=== PATIENT | female | born 1940 | race Caucasian/White ===

== ENCOUNTER 2018-11-07 06:47 | Observation (INO) ==
[2018-11-07 07:19] LABS: Basophils % 0.4 % (0.1-2.0); Eosinophils # 0.3 K/mm3 (0.0-0.4); Eosinophils % 3.2 % (0.1-12.0); Hematocrit 41.3 % (37.0-47.0); Hemoglobin 13.2 g/dL (12.2-16.2); Lymphocytes # 1.2 K/mm3 (0.7-4.5); Lymphocytes % 11.1 % (10-50); Mean Corpuscular HGB Conc 31.9 g/dL (31.8-35.4); Mean Corpuscular Hemoglobin 29.2 pg (27.0-31.2); Mean Corpuscular Volume 91.4 fl (81-99); Mean Platelet Volume 7.8 fl (7.4-10.4); Monocytes # 0.5 K/mm3 (0.1-1.0); Neutrophils # 8.5 K/mm3 (1.8-7.8); Neutrophils % 80.3 % (37.0-80.0); Platelet Count 211 K/mm3 (142-424); Red Blood Count 4.52 M/mm3 (4.20-5.40); White Blood Count 10.6 K/mm3 (4.8-10.8)
[2018-11-07 07:28] LABS: Anion Gap 10.2 mEq/L (5-15); Blood Urea Nitrogen 15 mg/dL (7-18); C-Reactive Protein 3.3 mg/L (0.0-0.9); Calcium 9.3 mg/dL (8.5-10.1); Carbon Dioxide 30 mmol/L (21.0-32.0); Chloride 103 mmol/L (98-107); Glucose 229 mg/dL (74-106); Potassium 4.2 mmoL/L (3.5-5.1); Sodium 139 mmol/L (136-145)
--- NOTE | 2018-11-07 07:32 | Emergency Department Note ---
ED Disposition Clinical Impression: Elevated erythrocyte sedimentation rate, Diabetes 1.5, managed as type 2 Obesity Qualifiers: Obesity type: due to excess calories Obesity classification: adult class 3 (BMI >= 40) Serious obesity comorbidity presence: with serious comorbidity Body mass index: BMI 50.0-59.9 Qualified Code(s): E66.01 - Morbid (severe) obesity due to excess calories; Z68.43 - Body mass index (BMI) 50-59.9, adult A-fib Qualifiers: Atrial fibrillation type: chronic Qualified Code(s): I48.2 - Chronic atrial fibrillation CHF (congestive heart failure) Qualifiers: Heart failure type: unspecified Heart failure chronicity: acute on chronic Qualified Code(s): I50.9 - Heart failure, unspecified Disposition: Admitted as Observation Condition on Discharge: Fair Referrals: Provider,Referral, MD [Primary Care Provider] - - Critical Care Critical Care Time: No Attestation: On 11/07/18, the high probability of a clinically significant, sudden or life threatening deterioration of the following system(s) required my full and direct attention, intervention and personal management. The time I documented below is in addition to time spent performing reported procedures but includes the following listed in this critical care notation. Medical Decision Making - Medical Records Medical records reviewed: Yes: I reviewed the patient's medical records. - Neeraj Inquiry Pt receiving controlled substance: No Vital Signs: 11/07/18 06:58 11/07/18 07:17 11/07/18 07:30 Temperature 98.6 F Temperature Source Oral Pulse Rate [Right] 89 88 84 Respiratory Rate 16 Blood Pressure [Right Arm] 161/126 H 135/68 137/79 Blood Pressure Mean [Right Arm] 137 90 98 Blood Pressure Source [Right Arm] Automatic Cuff Automatic Cuff Automatic Cuff Blood Pressure Position [Right Arm] Supine Sitting Sitting 02 Sat by Pulse Oximetry 89 L 93 L 94 L Oxygen Delivery Method Room Air Room Air Room Air Oxygen Flow Rate (LPM) 11/07/18 07:56 11/07/18 08:30 11/07/18 08:54 Temperature 98.6 F Temperature Source Oral Pulse Rate [Right] 87 84 79 Respiratory Rate 16 16 20 Blood Pressure [Right Arm] 135/79 141/85 H 149/85 H Blood Pressure Mean [Right Arm] 97 103 106 Blood Pressure Source [Right Arm] Automatic Cuff Automatic Cuff Automatic Cuff Blood Pressure Position [Right Arm] Sitting Sitting Sitting 02 Sat by Pulse Oximetry 93 L 93 L 95 Oxygen Delivery Method Room Air Nasal Cannula Nasal Cannula Oxygen Flow Rate (LPM) 2 11/07/18 09:30 Temperature Temperature Source Pulse Rate [Right] 78 Respiratory Rate 20 Blood Pressure [Right Arm] 141/82 H Blood Pressure Mean [Right Arm] 101 Blood Pressure Source [Right Arm] Automatic Cuff Blood Pressure Position [Right Arm] Sitting 02 Sat by Pulse Oximetry 95 Oxygen Delivery Method Nasal Cannula Oxygen Flow Rate (LPM) 2 - Lab Data Lab results reviewed: Yes: I reviewed the patient's lab results. Lab Results 11/07/18 07:00: WBC 10.6, RBC 4.52, Hgb 13.2, Hct 41.3, MCV 91.4, MCH 29.2, MCHC 31.9, RDW 15.0, Plt Count 211, MPV 7.8, Neut % (Auto) 80.3 H, Lymph % (Auto) 11.1, [place] % (Auto) 5.0, Eos % (Auto) 3.2, Baso % (Auto) 0.4, Neut # (Auto) 8.5 H, Lymph # (Auto) 1.2, [place] # (Auto) 0.5, Eos # (Auto) 0.3, Baso # (Auto) 0.0, ESR 48 H 11/07/18 07:00: Sodium 139, Potassium 4.2, Chloride 103, Carbon Dioxide 30, Anion Gap 10.2, BUN 15, Creatinine 0.96, Estimated Creat Clear 41, Estimated GFR 57 L, Est GFR ( Amer) 68, Glucose 229 H, Calcium 9.3, Troponin I < 0.02, C-Reactive Protein 3.3 H 11/07/18 07:00: B-Natriuretic Peptide 108 H 11/07/18 07:00: Total Bilirubin 0.3, Direct Bilirubin 0.1, Indirect Bilirubin 0.2, AST 17, ALT 25, Alkaline Phosphatase 94, Total Protein 7.4, Albumin 2.9 L Result diagrams: 11/07/18 07:00 11/07/18 07:00 - Radiology Data #1 Image(s): Chest Image Reviewed: Yes I reviewed the patient's radiology image Preliminary Findings: Abnormal (cm) - ECG Data Tracing #1 Arrhythmias present: afib Ischemic changes: non-specific ST-T wave changes ECG compared to prior tracings: there are no significant changes Chest Pain HPI - General Chief Complaint: Chest Pain Stated Complaint: Chest Pain Time Seen by Provider: 11/07/18 07:00 Mode of Arrival: EMS Source of Information: Patient, EMS, Medical Record Limitations: Physical Limitations Description of Symptoms (Recalled from ER Triage Doc. by RN): Pt states she started having chest pain last night with SOA 324 ASA given by EMS [employer] - History of Present Illness HPI narrative: pt with chest pain last pm and sob and again this am - pt lives at [facility] - has hx of dvt on blood thinner MD complaint: chest pain indicative of cardiac Onset (ago): day(s) Duration: now resolved Activity at onset: during rest Pain location: substernal Severity: similar to previous episodes Risk Factors for CAD: Hypertension, Family Hx of CAD, Diabetes Treatments prior to or on arrival for Cardiac Chest Pain: aspirin - CHANDA Score for Non-Stemi Age of Patient: 70-79 years old Heart Rate: 70-89 bpm Systolic Blood Pressure: 160-199 mmHg Serum Creatinine: 0.80-1.19 mg/dl CHF [place] Class: I-No CHF Other Risk Factors: None Non-Stemi Risk Score: 101 - Related Data On Oral Contraceptives: No Home Medications Medication Instructions Recorded Confirmed acetaminophen 500 mg capsule 500 mg PO Q6H PRN 03/02/18 11/07/18 atorvastatin 20 mg tablet 20 mg PO DAILY 03/02/18 11/07/18 famotidine 20 mg tablet 20 mg PO BID 03/02/18 11/07/18 gabapentin 600 mg tablet 600 mg PO TID 03/02/18 11/07/18 hydrocodone 5 mg-acetaminophen 325 1 tab PO Q6H 03/02/18 11/07/18 mg tablet lactulose 10 gram/15 mL oral 10 g PO DAILY 03/02/18 11/07/18 solution loratadine 10 mg tablet 10 mg PO DAILY 03/02/18 11/07/18 losartan 25 mg tablet 25 mg PO DAILY 03/02/18 11/07/18 metoprolol succinate ER 50 mg 50 mg PO DAILY 03/02/18 11/07/18 tablet,extended release 24 hr mirabegron ER 50 mg 50 mg PO DAILY 03/02/18 11/07/18 tablet,extended release 24 hr polyethylene glycol 3350 17 17 gram PO DAILY 03/02/18 11/07/18 gram/dose oral powder rivaroxaban 20 mg tablet 20 mg PO DAILY 03/02/18 11/07/18 sertraline 100 mg tablet 200 mg PO DAILY 03/02/18 11/07/18 trazodone 50 mg tablet 50 mg PO DAILY 03/02/18 11/07/18 Aspirin [Aspir 81] 81 mg PO DAILY 11/07/18 11/07/18 Calcium Carbonate 500 mg PO BID 11/07/18 11/07/18 Metformin HCl 500 mg PO BID 11/07/18 11/07/18 Allergies Allergy/AdvReac Type Severity Reaction Status Date / Time influenza virus vaccine, AdvReac Unknown STATES Verified 11/07/18 07:06 specific GAVE HER [INFLUENZA VIRUS THE FLU VACC,SPECIFIC] [facility] History - Hepatitis A Screen Drug use history?: No High risk sexual behaviors?: No History of sexually transmitted infection?: No Currently employed?: No Childcare worker?: No Do you have indoor plumbing?: Yes Do you have electricity?: Yes Attestation statement:: This patient has been screened for Hepatitis A risk factors. I have reviewed the patient's past medical history: Yes Medical History: Reports:: Anxiety, Atrial Fibrillation, Deep Vein Thrombosis, Depression, Diabetes Mellitus Type 2, Gastroesophageal Reflux Disease(GERD), Hyperlipidemia, Hypertension, Osteoporosis, Peripheral Artery Disease, Pulmonary Embolism, Urinary Tract Infection Other Medical History: Reports: Arthritis, Osteoporosis Comment: Cerebral Infarction, Insomnia, Polyneuropathy, Prolapse - Social History Smoking Status: Unknown if ever smoked Alcohol Intake: never Occupational Status: retired Housing: [employer] - Psychiatric History Expresses thoughts of harming self/others: None Suicide Plan Description: No Plan Pschychiatric History:: Reports:: Anxiety, Depression Family Hx:: Unable to obtain ROS Obtained: Yes All systems reviewed & no additional complaints - Constitutional Constitutional: Denies fever(s) - Eyes Eyes: Denies change in vision - ENT Ears, Nose, Mouth, and Throat: Denies sore throat - Cardiovascular Cardiovascular: Reports chest pain, Reports chest pain at rest, Reports dyspnea - Respiratory Respiratory: No cough, No non-productive cough, Yes dyspnea - Gastrointestinal Gastrointestingal: Denies: vomiting - Genitourinary Female Genitourinary: Denies abnormal vaginal bleeding - Musculoskeletal Musculoskeletal: Denies joint pain - Integumentary/Breasts Skin/Breast: Denies rash - Neurologic Neurologic: Denies seizure-like activity Physical Exam - General General appearance: alert, in no apparent distress, obese - Head Head exam: normocephalic - Eye Eye exam: Present: PERRL, EOMI - ENT ENT exam: Present: mucous membranes dry - Neck Neck exam: Absent: trachea midline - Respiratory Respiratory exam: Present: other (dec bs bilat ). Absent: respiratory distress - Cardiovascular Cardiovascular exam: Present: irregular rhythm, systolic murmur, +S4 - Abdominal Exam Abdominal exam: Present: soft - Extremities Exam Extremities exam: Present: pedal edema. Absent: calf tenderness - Neurological Exam Neurological exam: Present: alert, oriented X3, CN II-XII intact, other (s/p cva ) - Psychiatric Psychiatric exam: Present: normal affect - Skin Skin exam: Absent: rash
[2018-11-07 08:00] LABS: Erythrocyte Sedimentation Rate 48 mm/hr (0-30)
[2018-11-07 08:16] LABS: Albumin Level 2.9 gm/dL (3.4-5.0); Bilirubin,Direct 0.1 mg/dL (0.0-0.2); Bilirubin,Indirect 0.2 mg/dL (0.0-0.9); Bilirubin,Total 0.3 mg/dL (0.2-1.0); Total Protein,Serum 7.4 gm/dL (6.4-8.2)
--- NOTE | 2018-11-07 12:04 | Pharmacy Consult Notes ---
[facility] Pharmacy VTE Monitoring - Patient Demographics Admission date: 11/07/18 Report Date: 11/07/18 Time: 12:04 Allergies/Adverse Reactions: Patient Allergies influenza virus vaccine, specific [INFLUENZA VIRUS VACC,SPECIFIC] Adverse Reaction (Unknown, Verified 11/07/18 07:06) STATES GAVE HER THE FLU Height: 1.63 m Weight: 107.246 kg Patient Problems: Current Active Problems (Updated 11/07/18 @ 09:42 by Emmanuel Quijano MD) Obesity (Acute) A-fib (Acute) Elevated erythrocyte sedimentation rate (Acute) CHF (congestive heart failure) (Acute) Diabetes 1.5, managed as type 2 (Acute) - VTE Risk Labs: VTE Related Lab Results Hgb 13.2 g/dL (12.2-16.2) 11/07/18 07:00 Hct 41.3 % (37.0-47.0) 11/07/18 07:00 Plt Count 211 K/mm3 (142-424) 11/07/18 07:00 BUN 15 mg/dL (7-18) 11/07/18 07:00 Creatinine 0.96 mg/dL (0.55-1.02) 11/07/18 07:00 Estimated Creat Clear 41 mL/min (50-200) 11/07/18 07:00 - Prophylaxis VTE Prophylaxis Ordered?: Yes Types of VTE Prophylaxis: TEDS Knee High, Pharmacological Location of Applied Device: Bilateral Lower Extremeties Pharmacologic Type: Other (XARELTO) - VTE Diagnosis Confirmed Treatment or plan recommended: Continue Current Treatment
[2018-11-07 16:25] LABS: Microscopic, Urine URINE MICROSCOPIC (MICROSCOPIC)
[2018-11-07 16:28] LABS: Appearance,Urine CLOUDY (Clear); Bilirubin,Urine Negative (Negative); Blood, Urine Negative (Negative); Color,Urine YELLOW (Yellow); Glucose,Urine (UA) 1+ (Negative); Ketones,Urine Negative (Negative); Leukocyte Esterase,Urine 1+ (Negative); PH,Urine 6.5 (5.0-8.5); Protein,Urine Negative (Negative); Urobilinogen,Urine 0.2 EU/dl (0.2)
[2018-11-07 16:38] LABS: Bacteria,Urine 4+ /lpf
[2018-11-08 07:29] LABS: Basophils % 0.5 % (0.1-2.0); Eosinophils # 0.4 K/mm3 (0.0-0.4); Eosinophils % 4.9 % (0.1-12.0); Hematocrit 39.7 % (37.0-47.0); Hemoglobin 12.6 g/dL (12.2-16.2); Lymphocytes # 1.4 K/mm3 (0.7-4.5); Lymphocytes % 17.4 % (10-50); Mean Corpuscular HGB Conc 31.6 g/dL (31.8-35.4); Mean Corpuscular Hemoglobin 29.1 pg (27.0-31.2); Mean Corpuscular Volume 92.2 fl (81-99); Mean Platelet Volume 7.9 fl (7.4-10.4); Monocytes # 0.4 K/mm3 (0.1-1.0); Monocytes % 5.3 % (1.7-9.3); Neutrophils # 5.6 K/mm3 (1.8-7.8); Neutrophils % 71.9 % (37.0-80.0); Platelet Count 176 K/mm3 (142-424); Red Blood Count 4.31 M/mm3 (4.20-5.40); Red Cell Distribution Width 14.9 % (11.5-17.5); White Blood Count 7.8 K/mm3 (4.8-10.8)
[2018-11-08 07:43] LABS: Chol/HDL Ratio 4.4 (1-3.5)
--- NOTE | 2018-11-08 08:11 | Consult Report ---
History of Present Illness Consult date: 11/08/18 Requesting physician: Emmanuel Quijano Consult reason: shortness of breath Chief complaint: Shortness of breath Additional Medical History:: 1. Diabetes mellitus type 2, treated for about 3 years 2. History of CVA with left-sided weakness approximately 5 years ago 3. Chronic atrial fibrillation, on Xarelto therapy 4. Hypertension 5. Hyperlipidemia 6. group home resident History of present illness: 78-year-old white female sent from the skilled nursing for complaints of shortness of breath. Patient is somewhat of a poor historian but states that she does not believe she has shortness of breath with exertion. Symptoms seem to only occur when she lays down to go to sleep. Shortness of breath does not wake her up. She relates a previous stress test a couple years ago without need for further evaluation or intervention. Patient has chronic atrial fibrillation for which she is on rivaroxaban therapy. History of stroke with left-sided weakness for which she has been on skilled nursing since then. Patient is a diabetic with history of hypertension and hyperlipidemia. EKG shows atrial fibrillation with controlled rate with PVCs. Troponins during this hospitalization have returned normal. [facility] History Medical History: Reports:: Anxiety, Atrial Fibrillation, Deep Vein Thrombosis, Depression, Diabetes Mellitus Type 2, Gastroesophageal Reflux Disease(GERD), Hyperlipidemia, Hypertension, Osteoporosis, Peripheral Artery Disease, Pulmonary Embolism, Urinary Tract Infection Denies:: Cancer, Diabetes Mellitus Type 1, MRSA *Have you ever received a pneumonia vaccine?: Yes *Have you received a flu vaccine this season?: No Other Medical History: Reports: Arthritis, Osteoporosis Other Surgeries: Yes: Hysterectomy-Total Amputation: No Fractures: No - *Social History Educational Level: Completed High School Smoking Status: Former smoker Alcohol Intake: never *Occupational Status:: retired Housing: skilled nursing *Travel in the last 8 weeks: None - Psychiatric History Expresses thoughts of harming self/others: None Suicide Plan Description: No Plan Pschychiatric History:: Reports:: Anxiety, Depression Family Hx:: Unable to obtain Meds Home Medications Medication Instructions Recorded Confirmed Type atorvastatin 20 mg tablet 20 mg PO HS 03/02/18 11/07/18 History gabapentin 600 mg tablet 600 mg PO TID 03/02/18 11/07/18 History hydrocodone 5 mg-acetaminophen 325 1 tab PO QID 03/02/18 11/07/18 History mg tablet lactulose 10 gram/15 mL oral 20 g PO DAILYP PRN 03/02/18 11/07/18 History solution loratadine 10 mg tablet 10 mg PO DAILY 03/02/18 11/07/18 History losartan 25 mg tablet 25 mg PO DAILY 03/02/18 11/07/18 History mirabegron ER 50 mg 50 mg PO DAILY 03/02/18 11/07/18 History tablet,extended release 24 hr polyethylene glycol 3350 17 17 gram PO DAILYP PRN 03/02/18 11/07/18 History gram/dose oral powder rivaroxaban 20 mg tablet 20 mg PO DAILY 03/02/18 11/07/18 History sertraline 100 mg tablet 200 mg PO DAILY 03/02/18 11/07/18 History trazodone 50 mg tablet 50 mg PO DAILY 03/02/18 11/07/18 History Acetaminophen [Acetaminophen Extra 500 mg PO Q4HP PRN 11/07/18 11/07/18 History Strength] Aspirin [Aspir 81] 81 mg PO DAILY 11/07/18 11/07/18 History Calcium Carbonate 500 mg PO BID 11/07/18 11/07/18 History glipiZIDE [Glipizide] 10 mg PO DAILY 11/07/18 11/07/18 History Allergies Allergy/AdvReac Type Severity Reaction Status Date / Time influenza virus vaccine, AdvReac Unknown STATES Verified 11/07/18 07:06 specific GAVE HER [INFLUENZA VIRUS THE FLU VACC,SPECIFIC] Review of Systems - *Cardiovascular Denies chest pain - *Respiratory Reports shortness of breath, Denies cough, Denies wheezing - *Gastrointestinal Denies abdominal pain, Denies change in bowel habits, Denies loose stools - *Genitourinary Denies blood in urine - *Musculoskeletal Denies joint pain, Denies back pain - *Neurologic Denies seizure-like activity Exam Vital signs and Labs for Last 24 Hours: Temp Pulse Resp BP Pulse Ox 97.5 F L 87 18 167/89 H 97 11/08/18 07:41 11/08/18 07:41 11/08/18 07:41 11/08/18 07:41 11/08/18 07:41 Laboratory Results - last 24 hr 11/07/18 07:00: Total Bilirubin 0.3, Direct Bilirubin 0.1, Indirect Bilirubin 0.2, AST 17, ALT 25, Alkaline Phosphatase 94, Total Protein 7.4, Albumin 2.9 L 11/07/18 12:24: POC Glucose 164 H 11/07/18 12:55: Troponin I < 0.02 11/07/18 15:45: Troponin I < 0.02 11/07/18 16:00: Urine Color Yellow, Urine Appearance Cloudy, Urine pH 6.5, Ur Specific [place] 1.010, Urine Protein Negative, Urine Glucose (UA) 1+, Urine Ketones Negative, Urine Blood Negative, Urine Nitrate Positive, Urine Bilirubin Negative, Urine Urobilinogen 0.2, Ur Leukocyte Esterase 1+ A, Urine WBC 5-10, Ur Squamous Epith Cells 10-20, Urine Bacteria 4+ 11/07/18 16:33: POC Glucose 200 H 11/07/18 19:57: POC Glucose 211 H 11/08/18 06:06: POC Glucose 176 H 11/08/18 07:12: WBC 7.8 D, RBC 4.31, Hgb 12.6, Hct 39.7, MCV 92.2, MCH 29.1, MCHC 31.6 L, RDW 14.9, Plt Count 176, MPV 7.9, Neut % (Auto) 71.9, Lymph % (Auto) 17.4, [place] % (Auto) 5.3, Eos % (Auto) 4.9, Baso % (Auto) 0.5, Neut # (Auto) 5.6, Lymph # (Auto) 1.4, [place] # (Auto) 0.4, Eos # (Auto) 0.4, Baso # (Auto) 0.0 11/08/18 07:12: Sodium 142, Potassium 4.0, Chloride 105, Carbon Dioxide 31, Anion Gap 10.0, BUN 11 D, Creatinine 0.76 D, Estimated Creat Clear 80, Estimated GFR 74, Est GFR ( Amer) 90 D, Glucose 193 H, Calcium 9.0, Magnesium 1.9, Triglycerides 155, Cholesterol 158, LDL Cholesterol 91, VLDL Cholesterol 31, HDL Cholesterol 36, Cholesterol/HDL Ratio 4.4 H I & O for Last 24 hours: Intake & Output 11/05/18 11/06/18 11/07/18 11/08/18 11:59 11:59 11:59 11:59 Intake Total 1259 / 1259 Output Total 200 / 200 Balance 1059 / 1059 Weight 236 lb 7 oz 233 lb 1 oz Microbiology Reports for the Last 24 Hours: Microbiology 11/07/18 16:00 Urine,Clean Catch Urine Culture - Preliminary Gram Negative Rods - *Routine HEENT Exam Head: Present: normocephalic Eye: Present: EOMI, PERRL ENT: Present: mucous membranes moist - *Routine Neck Exam Present: supple. Absent: JVD, carotid bruit - *Routine Respiratory Exam Present: CTA bilaterally. Absent: accessory muscle use, rales, rhonchi, wheezes - *Routine Cardiovascular Exam Present: irregularly irregular. Absent: murmur, gallop, rubs - *Routine Abdominal Exam Present: soft. Absent: tenderness, distended, guarding - *Routine Extremities Exam Absent: edema, calf tenderness - *Routine Neurological Exam Present: alert, oriented X3, moving all extremities Assessment and Plan (1) Shortness of breath Current visit: Yes Status: Acute Category: Medical Code(s): R06.02 - Shortness of breath (2) Hypertension Current visit: Yes Status: Acute Category: Medical Code(s): I10 - Essential (primary) hypertension (3) Hyperlipidemia associated with type 2 diabetes mellitus Current visit: Yes Status: Acute Category: Medical Code(s): E11.69 - Type 2 diabetes mellitus with other specified complication; E78.5 - Hyperlipidemia, unspecified (4) A-fib Current visit: Yes Status: Acute Qualifiers: Atrial fibrillation type: chronic Qualified Code(s): I48.2 - Chronic atrial fibrillation Category: Medical Code(s): I48.91 - Unspecified atrial fibrillation (5) Diabetes 1.5, managed as type 2 Current visit: Yes Status: Acute Category: Medical Code(s): E13.9 - Other specified diabetes mellitus without complications (6) Obesity Current visit: Yes Status: Acute Qualifiers: Obesity type: due to excess calories Obesity classification: adult class 3 (BMI >= 40) Serious obesity comorbidity presence: with serious comorbidity Body mass index: BMI 50.0-59.9 Qualified Code(s): E66.01 - Morbid (severe) obesity due to excess calories; Z68.43 - Body mass index (BMI) 50-59.9, adult Category: Medical Code(s): E66.9 - Obesity, unspecified - Assessment and plan all Dx Assessment and Plan for all problems:: 1. With patient's history of diabetes mellitus, hypertension, hyperlipidemia and previous stroke, would recommend proceeding with Lexiscan Myoview today. 2. We will plan on holding patient's Xarelto today for possibility of cardiac catheterization tomorrow, if needed, pending results of stress test.
--- NOTE | 2018-11-08 12:57 | History & Physical Report ---
*Admission Date: 11/07/18 *Chief complaint: chest pain *History of present illness: this wf presented with chest pain and was seen in the ed -states she started having chest pain last night with SOA 324 ASA given by EMS [facility]ER pt has hx of a fib and prev dvt pt with chest pain last pm and sob and again this am - pt lives at [facility] - has hx of dvt on blood thinner MD complaint: chest pain indicative of cardiac pt was admitted and [place] be seen by [facility] - [facility] History I have reviewed the patient's past medical history: Yes Medical History: Reports:: Anxiety, Atrial Fibrillation, Deep Vein Thrombosis, Depression, Diabetes Mellitus Type 2, Gastroesophageal Reflux Disease(GERD), Hyperlipidemia, Hypertension, Osteoporosis, Peripheral Artery Disease, Pulmonary Embolism, Urinary Tract Infection Denies:: Cancer, Diabetes Mellitus Type 1, MRSA *Have you ever received a pneumonia vaccine?: Yes *Have you received a flu vaccine this season?: No Other Medical History: Reports: Arthritis, Osteoporosis Other Surgeries: Yes: Hysterectomy-Total Amputation: No Fractures: No - *Social History Educational Level: Completed High School Smoking Status: Former smoker Alcohol Intake: never *Occupational Status:: retired Housing: shelter *Travel in the last 8 weeks: None - Psychiatric History Expresses thoughts of harming self/others: None Suicide Plan Description: No Plan Pschychiatric History:: Reports:: Anxiety, Depression Family Hx:: Unable to obtain Review of Systems - Review of Systems Review of systems:: pertinent systems reviewed and negative unless documented below - Constitutional Denies fever(s) - Eyes Denies change in vision - ENT Denies sore throat - *Cardiovascular Reports chest pain, Reports chest pain at rest - *Respiratory Reports shortness of breath, Denies cough - *Gastrointestinal Denies abdominal pain - *Genitourinary Denies blood in urine - *Musculoskeletal Denies joint pain - Integumentary/Breasts Denies rash - *Neurologic Denies headache(s), Denies seizure-like activity - Psychiatric Denies anxiety Meds Home Medications Medication Instructions Recorded Confirmed Type atorvastatin 20 mg tablet 20 mg PO HS 03/02/18 11/07/18 History gabapentin 600 mg tablet 600 mg PO TID 03/02/18 11/07/18 History hydrocodone 5 mg-acetaminophen 325 1 tab PO QID 03/02/18 11/07/18 History mg tablet lactulose 10 gram/15 mL oral 20 g PO DAILYP PRN 03/02/18 11/07/18 History solution loratadine 10 mg tablet 10 mg PO DAILY 03/02/18 11/07/18 History losartan 25 mg tablet 25 mg PO DAILY 03/02/18 11/07/18 History mirabegron ER 50 mg 50 mg PO DAILY 03/02/18 11/07/18 History tablet,extended release 24 hr polyethylene glycol 3350 17 17 gram PO DAILYP PRN 03/02/18 11/07/18 History gram/dose oral powder rivaroxaban 20 mg tablet 20 mg PO DAILY 03/02/18 11/07/18 History sertraline 100 mg tablet 200 mg PO DAILY 03/02/18 11/07/18 History trazodone 50 mg tablet 50 mg PO DAILY 03/02/18 11/07/18 History Acetaminophen [Acetaminophen Extra 500 mg PO Q4HP PRN 11/07/18 11/07/18 History Strength] Aspirin [Aspir 81] 81 mg PO DAILY 11/07/18 11/07/18 History Calcium Carbonate 500 mg PO BID 11/07/18 11/07/18 History glipiZIDE [Glipizide] 10 mg PO DAILY 11/07/18 11/07/18 History Allergies Allergy/AdvReac Type Severity Reaction Status Date / Time influenza virus vaccine, AdvReac Unknown STATES Verified 11/07/18 07:06 specific GAVE HER [INFLUENZA VIRUS THE FLU VACC,SPECIFIC] Exam Vital signs and Labs for Last 24 Hours: Temp Pulse Resp BP Pulse Ox 97.7 F 115 H 20 146/78 H 95 11/08/18 11:16 11/08/18 11:16 11/08/18 11:16 11/08/18 11:16 11/08/18 11:16 Laboratory Results - last 24 hr 11/07/18 12:24: POC Glucose 164 H 11/07/18 12:55: Troponin I < 0.02 11/07/18 15:45: Troponin I < 0.02 11/07/18 16:00: Urine Color Yellow, Urine Appearance Cloudy, Urine pH 6.5, Ur Specific [place] 1.010, Urine Protein Negative, Urine Glucose (UA) 1+, Urine Ketones Negative, Urine Blood Negative, Urine Nitrate Positive, Urine Bilirubin Negative, Urine Urobilinogen 0.2, Ur Leukocyte Esterase 1+ A, Urine WBC 5-10, Ur Squamous Epith Cells 10-20, Urine Bacteria 4+ 11/07/18 16:33: POC Glucose 200 H 11/07/18 19:57: POC Glucose 211 H 11/08/18 06:06: POC Glucose 176 H 11/08/18 07:12: WBC 7.8 D, RBC 4.31, Hgb 12.6, Hct 39.7, MCV 92.2, MCH 29.1, MCHC 31.6 L, RDW 14.9, Plt Count 176, MPV 7.9, Neut % (Auto) 71.9, Lymph % (Auto) 17.4, [place] % (Auto) 5.3, Eos % (Auto) 4.9, Baso % (Auto) 0.5, Neut # (Auto) 5.6, Lymph # (Auto) 1.4, [place] # (Auto) 0.4, Eos # (Auto) 0.4, Baso # (Auto) 0.0 11/08/18 07:12: Sodium 142, Potassium 4.0, Chloride 105, Carbon Dioxide 31, Anion Gap 10.0, BUN 11 D, Creatinine 0.76 D, Estimated Creat Clear 80, Estimated GFR 74, Est GFR ( Amer) 90 D, Glucose 193 H, Calcium 9.0, Magnesium 1.9, Triglycerides 155, Cholesterol 158, LDL Cholesterol 91, VLDL Cholesterol 31, HDL Cholesterol 36, Cholesterol/HDL Ratio 4.4 H 11/08/18 11:27: POC Glucose 223 H I & O for Last 24 hours: Intake & Output 11/06/18 11/07/18 11/08/18 11/09/18 11:59 11:59 11:59 11:59 Intake Total 1259 / 1259 360 / 360 Output Total 200 / 200 Balance 1059 / 1059 360 / 360 Weight 236 lb 7 oz 233 lb 1 oz Microbiology Reports for the Last 24 Hours: Microbiology 11/07/18 16:00 Urine,Clean Catch Urine Culture - Preliminary Gram Negative Rods - Constitutional no acute distress, obese - *Routine HEENT Exam Head: Present: normocephalic Eye: Present: EOMI, PERRL. Absent: conjunctival icterus ENT: Present: mucous membranes dry - *Routine Neck Exam Absent: JVD - *Routine Respiratory Exam Present: decreased breath sounds - *Routine Cardiovascular Exam Present: RRR, murmur, S4 - *Routine Abdominal Exam Present: soft - *Routine Extremities Exam Present: edema. Absent: calf tenderness - *Routine Skin Exam Present: intact - *Routine Neurological Exam Present: alert, oriented X3, CN II-XII intact - Routine Psychiatric Exam Present: normal affect Assessment and Plan (1) Shortness of breath Current visit: Yes Status: Acute Category: Medical Code(s): R06.02 - Shortness of breath (2) Hypertension Current visit: Yes Status: Acute Category: Medical Code(s): I10 - Essential (primary) hypertension (3) Hyperlipidemia associated with type 2 diabetes mellitus Current visit: Yes Status: Acute Category: Medical Code(s): E11.69 - Type 2 diabetes mellitus with other specified complication; E78.5 - Hyperlipidemia, unspecified (4) A-fib Current visit: Yes Status: Acute Qualifiers: Atrial fibrillation type: chronic Qualified Code(s): I48.2 - Chronic atrial fibrillation Category: Medical Code(s): I48.91 - Unspecified atrial fibrillation (5) Diabetes 1.5, managed as type 2 Current visit: Yes Status: Acute Category: Medical Code(s): E13.9 - Other specified diabetes mellitus without complications (6) Obesity Current visit: Yes Status: Acute Qualifiers: Obesity type: due to excess calories Obesity classification: adult class 3 (BMI >= 40) Serious obesity comorbidity presence: with serious comorbidity Body mass index: BMI 50.0-59.9 Qualified Code(s): E66.01 - Morbid (severe) obesity due to excess calories; Z68.43 - Body mass index (BMI) 50-59.9, adult Category: Medical Code(s): E66.9 - Obesity, unspecified (7) HTN (hypertension) Current visit: Yes Status: Acute Qualifiers: Hypertension type: essential hypertension Qualified Code(s): I10 - Essential (primary) hypertension Category: Medical Code(s): I10 - Essential (primary) hypertension (8) Elevated erythrocyte sedimentation rate Current visit: Yes Status: Acute Category: Medical Code(s): R70.0 - Elevated erythrocyte sedimentation rate (9) CAD (coronary artery disease) Current visit: Yes Status: Acute Qualifiers: Coronary Disease-Associated Artery/Lesion type: unspecified vessel or lesion type [place] vs. transplanted heart: [place] heart Associated angina: with unstable angina Qualified Code(s): I25.110 - Atherosclerotic heart disease of [place] coronary artery with unstable angina pectoris Category: Medical Code(s): I25.10 - Atherosclerotic heart disease of [place] coronary artery without angina pectoris (10) Abnormal stress test Current visit: Yes Status: Acute Category: Medical Code(s): R94.39 - Abnormal result of other cardiovascular function study (11) Decreased cardiac ejection fraction Current visit: Yes Status: Acute Category: Medical Code(s): R93.1 - Abnormal findings on diagnostic imaging of heart and coronary circulation (12) Ventricular hypokinesis Current visit: Yes Status: Acute Category: Medical Code(s): I51.89 - Other ill-defined heart diseases (13) UTI (urinary tract infection), bacterial Current visit: Yes Status: Acute Category: Medical Code(s): N39.0 - Urinary tract infection, site not specified; A49.9 - Bacterial infection, unspecified
--- NOTE | 2018-11-08 21:43 | Cardiology Report ---
PROCEDURE: 2-D M-mode and color Doppler study INDICATIONS FOR THE TEST: Chest pain X COPD Heart Murmur Tobacco Smoking Palpitations Fatigue Syncope Edema HypertensionXDiabetes MellitusX Rheumatic Fever SOBXDOE ObesityXHyperlipidemiaX Family History HD Additional History AF PATIENT INFORMATION HEIGHT: 66 WEIGHT:236 GENDER: Female B/P:137/79 2-D/M-MODE INTERPRETATION: 2-D MEASUREMENTS OBSERVED VALUES IN CMS Right Ventricular Dimension (RVDd) 1.7 Interventricular Septum (Thickness)(IVsd) 1.1 Left Ventricular Internal Dimensions(LVIDd) 6.6 Left Ventricular Posterior Wall (Thickness)(LVPWd) 1.2 Aortic Root 3.4 Aortic Cusp Separation 1.5 Left Atrial Dimensions (LAD) 4.3 2D 1. Left atrium is moderately enlarged, left ventricle is mildly dilated, there is mild concentric left ventricular hypertrophy, there is moderately reduced left ventricular systolic function, visually estimated ejection fraction there is mild hypokinesis involving the inferior, inferior basal, posterior basal and basal septal wall. 2. The right atrium and right ventricle are normal size and contractility. 3. The aortic valve is thickened and calcified leaflet continue to display mobility. 4. The mitral and tricuspid valve leaflets are minimally thickened. 5. The pulmonic valve is poorly visualized. 6. No significant pericardial effusion noted. DOPPLER INTERROGATION: Doppler interrogation of the aortic, mitral and tricuspid valvular presence of mild mitral and tricuspid regurgitation, tricuspid regurgitation jet velocity is inadequate for calculation of the right ventricular systolic pressure, diastolic parameters are inconclusive. CONCLUSION: 1. Moderately enlarged left atrium, mildly dilated left ventricle, mild concentric left ventricular hypertrophy, moderately reduced left ventricular systolic function, visually estimated ejection fraction 40%, with multiple segmental wall motion abnormality described above. Diastolic parameters are inconclusive. 2. Thickened and calcified aortic valve without aortic stenosis or significant aortic insufficiency. 3. Mild mitral and tricuspid regurgitation 4. No significant pericardial effusion noted.
[2018-11-09 07:05] LABS: Anion Gap 9.6 mEq/L (5-15); Calcium 8.7 mg/dL (8.5-10.1); Potassium 3.6 mmoL/L (3.5-5.1)
--- NOTE | 2018-11-09 07:45 | Progress Note ---
Subjective Date: 11/09/18 Time: 07:43 Principal diagnosis: Cardiomyopathy Interval history: 78-year-old white female in bed in no acute distress. No complaints overnight. Patient is ready for cardiac catheterization today. Blood pressure readings somewhat labile we will continue to adjust both Coreg and irbesartan as able for cardiomyopathy. Exam Vital signs and Labs for Last 24 Hours: Temp Pulse Resp BP Pulse Ox 98.3 F 87 18 153/92 H 96 11/09/18 07:18 11/09/18 07:18 11/09/18 07:18 11/09/18 07:18 11/09/18 07:18 Laboratory Results - last 24 hr 11/08/18 07:12: Sodium 142, Potassium 4.0, Chloride 105, Carbon Dioxide 31, Anion Gap 10.0, BUN 11 D, Creatinine 0.76 D, Estimated Creat Clear 80, Estimated GFR 74, Est GFR ( Amer) 90 D, Glucose 193 H, Calcium 9.0, Magnesium 1.9, Triglycerides 155, Cholesterol 158, LDL Cholesterol 91, VLDL Cholesterol 31, HDL Cholesterol 36, Cholesterol/HDL Ratio 4.4 H 11/08/18 11:27: POC Glucose 223 H 11/08/18 16:11: POC Glucose 267 H 11/08/18 20:13: POC Glucose 176 H 11/09/18 05:16: POC Glucose 185 H 11/09/18 06:42: Sodium 141, Potassium 3.6, Chloride 104, Carbon Dioxide 31, Anion Gap 9.6, BUN 14 D, Creatinine 0.93 D, Estimated Creat Clear 80, E stimated GFR 59, Est GFR ( Amer) 71 D, Glucose 205 H, Calcium 8.7 I & O for Last 24 hours: Intake & Output 11/06/18 11/07/18 11/08/18 11/09/18 11:59 11:59 11:59 11:59 Intake Total 1259 / 1259 838 / 838 Output Total 200 / 200 250 / 250 Balance 1059 / 1059 588 / 588 Weight 236 lb 7 oz 233 lb 1 oz 232 lb 4 oz Microbiology Reports for the Last 24 Hours: Microbiology 11/07/18 16:00 Urine,Clean Catch Urine Culture - Final Escherichia coli - *Routine HEENT Exam Head: Present: normocephalic Eye: Present: EOMI, PERRL ENT: Present: mucous membranes moist - *Routine Respiratory Exam Present: CTA bilaterally. Absent: accessory muscle use, rales, rhonchi, wheezes - *Routine Cardiovascular Exam Present: irregularly irregular. Absent: murmur, gallop, rubs - *Routine Extremities Exam Absent: edema, calf tenderness - *Routine Neurological Exam Present: alert, oriented X3, moving all extremities Progress Note: A&P (1) Shortness of breath Status: Acute Current Visit: Yes (2) Hypertension Status: Acute Current Visit: Yes (3) Hyperlipidemia associated with type 2 diabetes mellitus Status: Acute Current Visit: Yes (4) A-fib Status: Acute Current Visit: Yes (5) Diabetes 1.5, managed as type 2 Status: Acute Current Visit: Yes (6) Obesity Status: Acute Current Visit: Yes (7) HTN (hypertension) Status: Acute Current Visit: Yes (8) Elevated erythrocyte sedimentation rate Status: Acute Current Visit: Yes (9) CAD (coronary artery disease) Status: Acute Current Visit: Yes (10) Abnormal stress test Status: Acute Current Visit: Yes (11) Decreased cardiac ejection fraction Status: Acute Current Visit: Yes (12) Ventricular hypokinesis Status: Acute Current Visit: Yes (13) UTI (urinary tract infection), bacterial Status: Acute Current Visit: Yes Assessment and Plan for All Diagnoses:: Proceed with cardiac catheterization today with further recommendations thereafter. Will adjust irbesartan to 75 mg daily.
--- NOTE | 2018-11-09 08:50 | Progress Note ---
Internal Medicine - PN: Subj *Date: 11/09/18 *Time: 08:47 Exam Vital signs and Labs for Last 24 Hours: Temp Pulse Resp BP Pulse Ox 98.3 F 87 18 160/80 H 96 11/09/18 07:18 11/09/18 07:18 11/09/18 07:18 11/09/18 07:52 11/09/18 07:18 Laboratory Results - last 24 hr 11/08/18 11:27: POC Glucose 223 H 11/08/18 16:11: POC Glucose 267 H 11/08/18 20:13: POC Glucose 176 H 11/09/18 05:16: POC Glucose 185 H 11/09/18 06:42: Sodium 141, Potassium 3.6, Chloride 104, Carbon Dioxide 31, Anion Gap 9.6, BUN 14 D, Creatinine 0.93 D, Estimated Creat Clear 80, Estimated GFR 59, Est GFR ( Amer) 71 D, Glucose 205 H, Calcium 8.7 I & O for Last 24 hours: Intake & Output 11/06/18 11/07/18 11/08/18 11/09/18 11:59 11:59 11:59 11:59 Intake Total 1259 / 1259 838 / 838 Output Total 200 / 200 250 / 250 Balance 1059 / 1059 588 / 588 Weight 236 lb 7 oz 233 lb 1 oz 232 lb 4 oz Microbiology Reports for the Last 24 Hours: Microbiology 11/07/18 16:00 Urine,Clean Catch Urine Culture - Final Escherichia coli - Constitutional no acute distress - *Routine HEENT Exam Head: Present: normocephalic Eye: Present: EOMI, PERRL ENT: Present: mucous membranes moist - *Routine Neck Exam Present: supple. Absent: lymphadenopathy - *Routine Respiratory Exam Present: CTA bilaterally - *Routine Cardiovascular Exam Present: RRR - *Routine Abdominal Exam Present: soft, normoactive bowel sounds. Absent: tenderness - *Routine Extremities Exam Absent: cyanosis, clubbing, edema - *Routine Skin Exam Present: warm. Absent: rash - *Routine Neurological Exam Present: alert, oriented X3 - Routine Psychiatric Exam Present: normal affect Assessment and Plan (1) Shortness of breath Current visit: Yes Status: Acute Category: Medical Code(s): R06.02 - Shortness of breath (2) Hypertension Current visit: Yes Status: Acute Category: Medical Code(s): I10 - Essential (primary) hypertension (3) Hyperlipidemia associated with type 2 diabetes mellitus Current visit: Yes Status: Acute Category: Medical Code(s): E11.69 - Type 2 diabetes mellitus with other specified complication; E78.5 - Hyperlipidemia, unspecified (4) A-fib Current visit: Yes Status: Acute Qualifiers: Atrial fibrillation type: chronic Qualified Code(s): I48.2 - Chronic atrial fibrillation Category: Medical Code(s): I48.91 - Unspecified atrial fibrillation (5) Diabetes 1.5, managed as type 2 Current visit: Yes Status: Acute Category: Medical Code(s): E13.9 - Other specified diabetes mellitus without complications (6) Obesity Current visit: Yes Status: Acute Qualifiers: Obesity type: due to excess calories Obesity classification: adult class 3 (BMI >= 40) Serious obesity comorbidity presence: with serious comorbidity Body mass index: BMI 50.0-59.9 Qualified Code(s): E66.01 - Morbid (severe) obesity due to excess calories; Z68.43 - Body mass index (BMI) 50-59.9, adult Category: Medical Code(s): E66.9 - Obesity, unspecified (7) HTN (hypertension) Current visit: Yes Status: Acute Qualifiers: Hypertension type: essential hypertension Qualified Code(s): I10 - Essential (primary) hypertension Category: Medical Code(s): I10 - Essential (primary) hypertension (8) Elevated erythrocyte sedimentation rate Current visit: Yes Status: Acute Category: Medical Code(s): R70.0 - Elevated erythrocyte sedimentation rate (9) CAD (coronary artery disease) Current visit: Yes Status: Acute Qualifiers: Coronary Disease-Associated Artery/Lesion type: unspecified vessel or lesion type [place] vs. transplanted heart: [place] heart Associated angina: with unstable angina Qualified Code(s): I25.110 - Atherosclerotic heart disease of [place] coronary artery with unstable angina pectoris Category: Medical Code(s): I25.10 - Atherosclerotic heart disease of [place] coronary artery without angina pectoris (10) Abnormal stress test Current visit: Yes Status: Acute Category: Medical Code(s): R94.39 - Abnormal result of other cardiovascular function study (11) Decreased cardiac ejection fraction Current visit: Yes Status: Acute Category: Medical Code(s): R93.1 - Abnormal findings on diagnostic imaging of heart and coronary circulation (12) Ventricular hypokinesis Current visit: Yes Status: Acute Category: Medical Code(s): I51.89 - Other ill-defined heart diseases (13) UTI (urinary tract infection), bacterial Current visit: Yes Status: Acute Category: Medical Code(s): N39.0 - Urinary tract infection, site not specified; A49.9 - Bacterial infection, unspecified (14) ESBL (extended spectrum beta-lactamase) producing bacteria infection Current visit: Yes Status: Acute Category: Medical Code(s): A49.9 - Bacterial infection, unspecified; Z16.12 - Extended spectrum beta lactamase (ESBL) resistance (15) ESBL (extended spectrum beta-lactamase) producing bacteria infection Current visit: Yes Status: Acute Category: Medical Code(s): A49.9 - Bacterial infection, unspecified; Z16.12 - Extended spectrum beta lactamase (ESBL) resistance - Assessment and plan all Dx Assessment and Plan for all problems:: Rounded with Dr. Quijano all orders per [facility] Heart cath today ESBL positive PICC line
[2018-11-10 07:39] LABS: Basophils % 0.5 % (0.1-2.0); Eosinophils # 0.3 K/mm3 (0.0-0.4); Eosinophils % 3.5 % (0.1-12.0); Hematocrit 41.3 % (37.0-47.0); Hemoglobin 13.2 g/dL (12.2-16.2); Lymphocytes % 12.6 % (10-50); Mean Corpuscular Hemoglobin 29.8 pg (27.0-31.2); Mean Corpuscular Volume 93.3 fl (81-99); Mean Platelet Volume 8.1 fl (7.4-10.4); Monocytes # 0.5 K/mm3 (0.1-1.0); Monocytes % 6.7 % (1.7-9.3); Neutrophils # 6.2 K/mm3 (1.8-7.8); Neutrophils % 76.7 % (37.0-80.0); Platelet Count 183 K/mm3 (142-424); Red Blood Count 4.43 M/mm3 (4.20-5.40)
[2018-11-10 07:45] LABS: Anion Gap 9.7 mEq/L (5-15); Calcium 8.4 mg/dL (8.5-10.1); Potassium 3.7 mmoL/L (3.5-5.1)
--- NOTE | 2018-11-10 12:05 | Progress Note ---
Subjective Date: 11/10/18 Time: 12:04 Principal diagnosis: Cardiomyopathy Interval history: This is a 78-year-old female who was admitted to the hospital with shortness of breath. The patient was found to have cardiomyopathy. She did undergo left cardiac catheterization yesterday and was found to have severe coronary artery disease as follows: 1. Severe coronary artery disease as described above 2. Left ventricular dysfunction at 30% with mildly elevated LVEDP PLAN: 1. Standard therapy for ischemic heart disease 2. Patient will be referred to CT surgery at [facility] for surgical revascularization. 3. There may be some difficulty in by passing the very large posterior lateral branch. We may need to consider hybrid revascularization if only the posterior descending artery is bypassed as there may not be adequate backfilling of this large posterior lateral branch. Hybrid revascularization with stenting may be necessary post CABG. 4. Pulmonary function tests 5. Patient should be started on anticoagulation for chronic atrial fibrillation 6. Daily aspirin plus beta blockers combined with delfino inhibitors Dr. Hopkins did have a long discussion with the patient and her family about sending her to the [facility] for CT surgery because of her severe disease. However the patient declined wanting to have bypass surgery and wanted to stay here at [facility] to have all of her cardiac testing completed. She has been advised of the risks and benefits of proceeding with stenting versus coronary artery bypass grafting. The patient and her family verbalized understanding. She continues to be short of breath. She states that this is no worse than it was yesterday. She is unable to lie flat because of her shortness of breath. She denies any chest pain or pressure. She denies any fever, chills, nausea, vomiting or diarrhea. Exam Vital signs and Labs for Last 24 Hours: Temp Pulse Resp BP Pulse Ox 98.1 F 89 19 154/87 H 93 L 11/10/18 11:36 11/10/18 11:36 11/10/18 11:36 11/10/18 11:36 11/10/18 11:36 Laboratory Results - last 24 hr 11/09/18 13:32: Activated Clotting Time 214 H* 11/09/18 16:45: POC Glucose 144 H 11/09/18 21:17: POC Glucose 208 H 11/10/18 00:22: POC Glucose 189 H 11/10/18 06:12: POC Glucose 219 H 11/10/18 07:17: WBC 8.0, RBC 4.43, Hgb 13.2, Hct 41.3, MCV 93.3, MCH 29.8, MCHC 32.0, RDW 15.0, Plt Count 183, MPV 8.1, Neut % (Auto) 76.7, Lymph % (Auto) 12.6, [place] % (Auto) 6.7, Eos % (Auto) 3.5, Baso % (Auto) 0.5, Neut # (Auto) 6.2, Lymph # (Auto) 1.0, [place] # (Auto) 0.5, Eos # (Auto) 0.3, Baso # (Auto) 0.0 11/10/18 07:17: Sodium 140, Potassium 3.7, Chloride 103, Carbon Dioxide 31, Anion Gap 9.7, BUN 12, Creatinine 0.89, Estimated Creat Clear 80, Estimated GFR 62, Est GFR ( Amer) 75, Glucose 215 H, Calcium 8.4 L I & O for Last 24 hours: Intake & Output 11/07/18 11/08/18 11/09/18 11/10/18 23:59 23:59 23:59 23:59 Intake Total 600 / 1259 1379 / 1379 812 / 812 623 / 623 Output Total 200 / 200 750 / 750 Balance 600 / 1059 1179 / 1179 62 / 62 623 / 623 Weight 236 lb 7 oz 233 lb 0.987 oz 232 lb 4 oz 228 lb 7 oz - *Routine HEENT Exam Head: Present: normocephalic, atraumatic Eye: Present: EOMI, PERRL ENT: Present: mucous membranes moist - *Routine Neck Exam Present: supple, full ROM, normal carotid upstroke. Absent: JVD, carotid bruit, lymphadenopathy - *Routine Respiratory Exam Present: CTA bilaterally - *Routine Cardiovascular Exam Present: Normal S1, Normal S2, irregularly irregular. Absent: murmur, gallop - *Routine Abdominal Exam Present: soft, normoactive bowel sounds. Absent: tenderness, distended - *Routine Extremities Exam Present: full ROM, pulses intact. Absent: cyanosis, clubbing, edema - *Routine Skin Exam Present: intact, warm. Absent: erythema, rash - *Routine Neurological Exam Present: alert, oriented X3, CN II-XII intact - Detailed Eye Exam Eyelids: Left normal inspection Progress Note: A&P (1) Shortness of breath Status: Acute Current Visit: Yes (2) Hypertension Status: Acute Current Visit: Yes (3) Hyperlipidemia associated with type 2 diabetes mellitus Status: Acute Current Visit: Yes (4) A-fib Status: Acute Current Visit: Yes (5) Diabetes 1.5, managed as type 2 Status: Acute Current Visit: Yes (6) Obesity Status: Acute Current Visit: Yes (7) Elevated erythrocyte sedimentation rate Status: Acute Current Visit: Yes (8) CAD (coronary artery disease) Status: Acute Current Visit: Yes (9) Abnormal stress test Status: Acute Current Visit: Yes (10) Decreased cardiac ejection fraction Status: Acute Current Visit: Yes (11) Ventricular hypokinesis Status: Acute Current Visit: Yes (12) UTI (urinary tract infection), bacterial Status: Acute Current Visit: Yes (13) ESBL (extended spectrum beta-lactamase) producing bacteria infection Status: Acute Current Visit: Yes (14) Ischemic cardiomyopathy Status: Acute Current Visit: Yes (15) LV dysfunction Status: Acute Current Visit: Yes (16) Acute systolic (congestive) heart failure Status: Acute Current Visit: Yes Assessment and Plan for All Diagnoses:: Plan: 1. The patient was admitted to the hospital with shortness of breath. The patient was found to have cardiomyopathy. She did not undergo left cardiac catheterization yesterday and was found to have severe coronary artery disease that would ultimately benefit from coronary artery bypass grafting. However the patient declined wanting to have coronary artery bypass grafting completed and she would prefer to stay here [facility] and have stents placed instead. Dr. Fine will did have a long discussion with the patient and her family about coronary artery bypass grafting versus stenting. The patient has verbalized understanding and does wish to proceed with stenting of her right coronary artery and LAD. 2. The patient will undergo repeat left cardiac catheterization with stenting to right coronary artery and LAD. The patient and her family have been educated on the risk and benefits of proceeding with the procedure. They have verbalized understanding and are agreeable in proceeding with the procedure. 3. Coronary artery disease is present. 4. Her blood pressure is acceptable. 5. Her LDL goal is less than 55. 6. The patient does have severe LV dysfunction. She has ischemic cardiomyopathy with ejection fraction of 30%. The patient will need to be on standard heart failure medications prior to her discharge home from the hospital. He is currently on a beta-aaliyah, ARB and Lasix. 7. Patient does have atrial fibrillation. She is rate controlled. 8. Further recommendations will be made pending the patient's response to treatment following her repeat left cardiac catheterization today with stenting. Next Thank you for the opportunity to help participate in the care of this patient.
--- NOTE | 2018-11-10 12:37 | Progress Note ---
Internal Medicine - PN: Subj *Date: 11/10/18 *Time: 08:00 Interval history: doing better and awaiting stents today Exam Vital signs and Labs for Last 24 Hours: Temp Pulse Resp BP Pulse Ox 98.1 F 89 19 191/90 H 93 L 11/10/18 11:36 11/10/18 12:10 11/10/18 12:10 11/10/18 12:10 11/10/18 12:10 Laboratory Results - last 24 hr 11/09/18 13:32: Activated Clotting Time 214 H* 11/09/18 16:45: POC Glucose 144 H 11/09/18 21:17: POC Glucose 208 H 11/10/18 00:22: POC Glucose 189 H 11/10/18 06:12: POC Glucose 219 H 11/10/18 07:17: WBC 8.0, RBC 4.43, Hgb 13.2, Hct 41.3, MCV 93.3, MCH 29.8, MCHC 32.0, RDW 15.0, Plt Count 183, MPV 8.1, Neut % (Auto) 76.7, Lymph % (Auto) 12.6, [place] % (Auto) 6.7, Eos % (Auto) 3.5, Baso % (Auto) 0.5, Neut # (Auto) 6.2, Lymph # (Auto) 1.0, [place] # (Auto) 0.5, Eos # (Auto) 0.3, Baso # (Auto) 0.0 11/10/18 07:17: Sodium 140, Potassium 3.7, Chloride 103, Carbon Dioxide 31, Anion Gap 9.7, BUN 12, Creatinine 0.89, Estimated Creat Clear 80, Estimated GFR 62, Est GFR ( Amer) 75, Glucose 215 H, Calcium 8.4 L I & O for Last 24 hours: Intake & Output 11/08/18 11/09/18 11/10/18 11/11/18 11:59 11:59 11:59 11:59 Intake Total 1259 / 1259 838 / 838 1317 / 1317 Output Total 200 / 200 250 / 250 500 / 500 Balance 1059 / 1059 588 / 588 817 / 817 Weight 233 lb 1 oz 232 lb 4 oz 228 lb 7 oz - Constitutional no acute distress - *Routine HEENT Exam Head: Present: normocephalic Eye: Present: EOMI, PERRL ENT: Present: mucous membranes dry - *Routine Neck Exam Absent: JVD - *Routine Respiratory Exam Present: decreased breath sounds - *Routine Cardiovascular Exam Present: RRR, murmur - *Routine Abdominal Exam Present: soft - *Routine Extremities Exam Absent: Luiz's sign - *Routine Skin Exam Present: intact - *Routine Neurological Exam Present: alert, oriented X3, CN II-XII intact - Routine Psychiatric Exam Present: normal affect Assessment and Plan (1) Shortness of breath Current visit: Yes Status: Acute Category: Medical Code(s): R06.02 - Shortness of breath (2) Hypertension Current visit: Yes Status: Acute Category: Medical Code(s): I10 - [place] tial (primary) hypertension (3) Hyperlipidemia associated with type 2 diabetes mellitus Current visit: Yes Status: Acute Category: Medical Code(s): E11.69 - Type 2 diabetes mellitus with other specified complication; E78.5 - Hyperlipidemia, unspecified (4) A-fib Current visit: Yes Status: Acute Qualifiers: Atrial fibrillation type: chronic Qualified Code(s): I48.2 - Chronic atrial fibrillation Category: Medical Code(s): I48.91 - Unspecified atrial fibrillation (5) Diabetes 1.5, managed as type 2 Current visit: Yes Status: Acute Category: Medical Code(s): E13.9 - Other specified diabetes mellitus without complications (6) Obesity Current visit: Yes Status: Acute Qualifiers: Obesity type: due to excess calories Obesity classification: adult class 3 (BMI >= 40) Serious obesity comorbidity presence: with serious comorbidity Body mass index: BMI 50.0-59.9 Qualified Code(s): E66.01 - Morbid (severe) obesity due to excess calories; Z68.43 - Body mass index (BMI) 50-59.9, adult Category: Medical Code(s): E66.9 - Obesity, unspecified (7) Elevated erythrocyte sedimentation rate Current visit: Yes Status: Acute Category: Medical Code(s): R70.0 - Elevated erythrocyte sedimentation rate (8) CAD (coronary artery disease) Current visit: Yes Status: Acute Qualifiers: Coronary Disease-Associated Artery/Lesion type: unspecified vessel or lesion type [place] vs. transplanted heart: [place] heart Associated angina: with unstable angina Qualified Code(s): I25.110 - Atherosclerotic heart disease of [place] coronary artery with unstable angina pectoris Category: Medical Code(s): I25.10 - Atherosclerotic heart disease of [place] coronary artery without angina pectoris (9) Abnormal stress test Current visit: Yes Status: Acute Category: Medical Code(s): R94.39 - Abnormal result of other cardiovascular function study (10) Decreased cardiac ejection fraction Current visit: Yes Status: Acute Category: Medical Code(s): R93.1 - Abnormal findings on diagnostic imaging of heart and coronary circulation (11) Ventricular hypokinesis Current visit: Yes Status: Acute Category: Medical Code(s): I51.89 - Other ill-defined heart diseases (12) UTI (urinary tract infection), bacterial Current visit: Yes Status: Acute Category: Medical Code(s): N39.0 - Urinary tract infection, site not specified; A49.9 - Bacterial infection, unspecified (13) ESBL (extended spectrum beta-lactamase) producing bacteria infection Current visit: Yes Status: Acute Category: Medical Code(s): A49.9 - Bacterial infection, unspecified; Z16.12 - Extended spectrum beta lactamase (ESBL) resistance (14) Ischemic cardiomyopathy Current visit: Yes Status: Acute Category: Medical Code(s): I25.5 - Ischemic cardiomyopathy (15) LV dysfunction Current visit: Yes Status: Acute Category: Medical Code(s): I51.9 - Heart disease, unspecified (16) Acute systolic (congestive) heart failure Current visit: Yes Status: Acute Category: Medical Code(s): I50.21 - Acute systolic (congestive) heart failure
[2018-11-11 05:44] LABS: Basophils # 0.1 K/mm3 (0-0.2); Basophils % 0.5 % (0.1-2.0); Eosinophils # 0.3 K/mm3 (0.0-0.4); Eosinophils % 2.8 % (0.1-12.0); Hematocrit 38.3 % (37.0-47.0); Mean Corpuscular HGB Conc 31.3 g/dL (31.8-35.4); Mean Corpuscular Hemoglobin 29.2 pg (27.0-31.2); Mean Corpuscular Volume 93.3 fl (81-99); Mean Platelet Volume 7.8 fl (7.4-10.4); Monocytes # 0.6 K/mm3 (0.1-1.0); Monocytes % 5.9 % (1.7-9.3); Neutrophils % 80.9 % (37.0-80.0); Platelet Count 174 K/mm3 (142-424); White Blood Count 9.9 K/mm3 (4.8-10.8)
[2018-11-11 05:50] LABS: Anion Gap 10.8 mEq/L (5-15); Calcium 8.4 mg/dL (8.5-10.1); Potassium 3.8 mmoL/L (3.5-5.1)
--- NOTE | 2018-11-11 08:26 | Progress Note ---
Subjective Date: 11/11/18 Time: 08:20 Principal diagnosis: Cardiomyopathy Interval history: 78-year-old white female in bed in no acute distress. States she is feeling much better since coronary stenting yesterday. She denies any chest pain, pressure or tightness. Some slight discomfort in the right hand secondary to previous cardiac cath 2 days ago. Patient has full range of motion and sensation in the fingers. Exam Vital signs and Labs for Last 24 Hours: Temp Pulse Resp BP Pulse Ox 97.6 F 94 H 20 146/95 H 90 L 11/11/18 08:00 11/11/18 08:00 11/11/18 08:00 11/11/18 08:00 11/11/18 08:00 Laboratory Results - last 24 hr 11/10/18 12:07: POC Glucose 221 H 11/10/18 15:02: Activated Clotting Time 398 H* 11/10/18 16:40: POC Glucose 157 H 11/10/18 20:55: POC Glucose 150 H 11/11/18 05:17: POC Glucose 181 H 11/11/18 05:25: WBC 9.9, RBC 4.10 L, Hgb 12.0 L, Hct 38.3, MCV 93.3, MCH 29.2, MCHC 31.3 L, RDW 15.0, Plt Count 174, MPV 7.8, Neut % (Auto) 80.9 H, Lymph % (Auto) 10.0, [place] % (Auto) 5.9, Eos % (Auto) 2.8, Baso % (Auto) 0.5, Neut # (Auto) 8.0 H, Lymph # (Auto) 1.0, [place] # (Auto) 0.6, Eos # (Auto) 0.3, Baso # (Auto) 0.1 11/11/18 05:25: Sodium 140, Potassium 3.8, Chloride 101, Carbon Dioxide 32, Anion Gap 10.8, BUN 11, Creatinine 0.76, Estimated Creat Clear 78, Estimated GFR 74, Est GFR ( Amer) 90, Glucose 190 H, Calcium 8.4 L I & O for Last 24 hours: Intake & Output 11/08/18 11/09/18 11/10/18 11/11/18 11:59 11:59 11:59 11:59 Intake Total 1259 / 1259 838 / 838 1317 / 1317 1433 / 1433 Output Total 200 / 200 250 / 250 500 / 500 Balance 1059 / 1059 588 / 588 817 / 817 1433 / 1433 Weight 233 lb 1 oz 232 lb 4 oz 228 lb 7 oz 228 lb 8 oz - *Routine HEENT Exam Head: Present: normocephalic Eye: Present: EOMI, PERRL ENT: Present: mucous membranes moist - *Routine Respiratory Exam Present: CTA bilaterally. Absent: accessory muscle use, rales, rhonchi, wheezes - *Routine Cardiovascular Exam Present: irregularly irregular. Absent: murmur, gallop, rubs - *Routine Extremities Exam Absent: edema, calf tenderness - *Routine Neurological Exam Present: alert, oriented X3, moving all extremities Progress Note: A&P (1) Shortness of breath Status: Acute Current Visit: Yes (2) Hypertension Status: Acute Current Visit: Yes (3) Hyperlipidemia associated with type 2 diabetes mellitus Status: Acute Current Visit: Yes (4) A-fib Status: Acute Current Visit: Yes (5) Diabetes 1.5, managed as type 2 Status: Acute Current Visit: Yes (6) Obesity Status: Acute Current Visit: Yes (7) Elevated erythrocyte sedimentation rate Status: Acute Current Visit: Yes (8) CAD (coronary artery disease) Status: Acute Current Visit: Yes (9) Abnormal stress test Status: Acute Current Visit: Yes (10) Decreased cardiac ejection fraction Status: Acute Current Visit: Yes (11) Ventricular hypokinesis Status: Acute Current Visit: Yes (12) UTI (urinary tract infection), bacterial Status: Acute Current Visit: Yes (13) ESBL (extended spectrum beta-lactamase) producing bacteria infection Status: Acute Current Visit: Yes (14) Ischemic cardiomyopathy Status: Acute Current Visit: Yes (15) LV dysfunction Status: Acute Current Visit: Yes (16) Acute systolic (congestive) heart failure Status: Acute Current Visit: Yes Assessment and Plan for All Diagnoses:: 1. Status post multivessel coronary stenting. Continue aspirin and Plavix for 30 days and then discontinue aspirin. Continue Lipitor 20 mg daily. 2. Chronic atrial fibrillation, continue Xarelto 20 mg daily 3. Cardiomyopathy, continue Coreg but increase to 6.25 mg twice daily and continue Avapro 37.5 mg daily with plans to increase as blood pressure tolerates. Continue spironolactone 25 mg daily and Lasix 40 mg twice daily. 4. Cardiac status stable. OK for discharge from Cardiology standpoint with follow up next week.
[2018-11-11 10:11] VITALS: BP 119/66
--- NOTE | 2018-11-11 10:32 | Discharge Summary ---
General - General Admission date:: 11/07/18 Discharge date: 11/11/18 HPI HPI: this wf presented with chest pain and was seen in the ed -states she started having chest pain last night with SOA 324 ASA given by EMS P pt with chest pain last pm and sob and again this am - [facility] - has hx of dvt on blood thinner MD complaint: chest pain indicative of cardiac pt was admitted and montserrat be seen by card - Hospital Course Hospital Course: pt has had slow improvement with esbl pos u/a and had sig card disease with heart cath and stents - pt with a fib and will require 7 days of iv abx per pic and follow up with card 1. Left atrium is moderately enlarged, left ventricle is mildly dilated, there is mild concentric left ventricular hypertrophy, there is moderately reduced left ventricular systolic function, visually estimated ejection fraction there is mild hypokinesis involving the inferior, inferior basal, posterior basal and basal septal wall. 2. The right atrium and right ventricle are normal size and contractility. 3. The aortic valve is thickened and calcified leaflet continue to display mobility. 4. The mitral and tricuspid valve leaflets are minimally thickened. 5. The pulmonic valve is poorly visualized. 6. No significant pericardial effusion noted. DOPPLER INTERROGATION: Doppler interrogation of the aortic, mitral and tricuspid valvular presence of mild mitral and tricuspid regurgitation, tricuspid regurgitation jet velocity is inadequate for calculation of the right ventricular systolic pressure, diastolic parameters are inconclusive. CONCLUSION: 1. Moderately enlarged left atrium, mildly dilated left ventricle, mild concentric left ventricular hypertrophy, moderately reduced left ventricular systolic function, visually estimated ejection fraction 40%, with multiple segmental wall motion abnormality described above. Diastolic parameters are inconclusive. 2. Thickened and calcified aortic valve without aortic stenosis or significant aortic insufficiency. 3. Mild mitral and tricuspid regurgitation 4. No significant pericardial effusion noted. pt had stress test-DIOLITE SPECT MYOCARDIAL PERFUSION LEXISCAN, REST AND STRESS: [facility] REVIEW QGS EF AND WALL MOTION EVALUATION: QPS - PERFUSION EVALUATION HISTORY: SOB, HTN, Obesity, DM DOSE: 9.45 mCi technetium 99m mibi intravenously at rest followed by 28.6 mCi technetium 99m mibi following the intravenous ministration of 0.4 mg of Lexiscan. Resting blood pressure is 195/91. Stress blood pressure 152/70. FINDINGS: Ejection fraction is calculated to be 31%. Stress images reveal decreased activity in a portion of the anterior wall and inferior wall and lateral wall. Rest images reveal improved activity in the lateral wall with mild change of the anterior and inferior wall. Gated images calculated ejection fraction of 31% IMPRESSION: Multiple defects as described above. This is a high risk abnormal stress test suggesting multivessel disease with severely reduced ejection fraction and global hypokinesis. pt then had cath -IOGRAPHIC RESULTS: 1. The left main artery has an ostial 20% stenosis and distally normal 2. The left anterior descending artery has proximal 40% stenoses with a mid vessel complex 90% stenosis followed by a 50% stenosis with distal 50 and 60% stenoses as the LAD wraps the apex 3. The circumflex artery is a nondominant vessel with proximal 30% stenoses then gives rise to a small first obtuse marginal artery and then occluded distal to the first OM 4. The right coronary artery is a large dominant vessel which has proximal mid vessel and distal 30% diffuse stenoses. The very distal segment has a 90% stenosis which extends into the large proximal PDA and proximal posterior lateral ventricular branch. 5. The COLON ventriculogram reveals left ventricular dilatation with reduced ejection fraction of 30% 6. The left ventricular end-diastolic pressure 20 mmHg IMPRESSION: 1. Severe coronary artery disease as described above 2. Left ventricular dysfunction at 30% with mildly elevated LVEDP PLAN: 1. Standard therapy for ischemic heart disease 2. Patient will be referred to CT surgery at [facility] for surgical revascularization. 3. There may be some difficulty in by passing the very large posterior lateral branch. We may need to consider hybrid revascularization if only the posterior descending artery is bypassed as there may not be adequate backfilling of this large posterior lateral branch. Hybrid revascularization with stenting may be necessary post CABG. 4. Pulmonary function tests 5. Patient should be started on anticoagulation for chronic atrial fibrillation 6. Daily aspirin plus beta blockers combined with delfino inhibitors . Sandeep did have a long discussion with the patient and her family about sending her to the [facility] for CT surgery because of her severe disease. However the patient declined wanting to have bypass surgery and wanted to stay here at [facility] to have all of her cardiac testing completed. She has been advised of the risks and benefits of proceeding with stenting versus coronary artery bypass grafting. The patient and her family verbalized understanding. She continues to be short of breath. She states that this is no worse than it was yesterday. She is unable to lie flat because of her shortness of breath. She denies any chest pain or pressure. She denies any fever, chills, nausea, vomiting or diarrhea. pt then had cath -PRESSION: 1. Successful stenting of the mid LAD critical disease reduced to 0% with 1 drug-eluting stent 2. Successful reconstruction of the distal dominant right coronary artery and a bifurcating manner as described above with critical lesions reduced to less than 10% with 2 drug-eluting stents with excellent angiographic results PLAN: 1. Plavix 600 mg now followed by Plavix 75 mg daily combined with aspirin 81 mg daily for 30 days. Following 30 days the aspirin should be discontinued 2. Patient needs to be on an anticoagulant for her chronic atrial fibrillation. This can be either Xarelto for Coumadin with an INR between 2.0 and 2.5. 3. LDL less than 55 4. Cardiac rehabilitation 5. Avoidance of tobacco products 6. Standard therapy for systolic heart failure 7. I don't believe patient is an appropriate candidate for a lifevest pt will need slow improvement at [facility] with esbl uti and afib and cad - will need 7 days of ivabx per her pic Objective Vital signs: Temp Pulse Resp BP Pulse Ox 98.2 F 98 H 22 119/66 94 L 11/11/18 08:00 11/11/18 10:00 11/11/18 10:00 11/11/18 10:00 11/11/18 10:00 no acute distress, obese - *Routine HEENT Exam Head: Present: normocephalic Eye: Present: EOMI, PERRL ENT: Present: mucous membranes dry - *Routine Neck Exam Absent: JVD - *Routine Respiratory Exam Present: decreased breath sounds - *Routine Cardiovascular Exam Present: RRR, murmur - *Routine Abdominal Exam Present: soft - *Routine Extremities Exam Present: edema. Absent: calf tenderness Comments: has pic line - *Routine Skin Exam Present: intact - *Routine Neurological Exam Present: alert, oriented X3, CN II-XII intact - Routine Psychiatric Exam Present: normal affect Results Labs on day of discharge: Labs from last 24 hours 11/11/18 11/11/18 11/11/18 05:25 05:25 05:17 WBC 9.9 RBC 4.10 L Hgb 12.0 L Hct 38.3 MCV 93.3 MCH 29.2 MCHC 31.3 L RDW 15.0 Plt Count 174 MPV 7.8 Neut % (Auto) 80.9 H Lymph % (Auto) 10.0 [place] % (Auto) 5.9 Eos % (Auto) 2.8 Baso % (Auto) 0.5 Neut # (Auto) 8.0 H Lymph # (Auto) 1.0 [place] # (Auto) 0.6 Eos # (Auto) 0.3 Baso # (Auto) 0.1 Activated Clotting Time Sodium 140 Potassium 3.8 Chloride 101 Carbon Dioxide 32 Anion Gap 10.8 BUN 11 Creatinine 0.76 Estimated Creat Clear 78 Estimated GFR 74 Est GFR ( Amer) 90 Glucose 190 H POC Glucose 181 H Calcium 8.4 L 11/10/18 11/10/18 11/10/18 20:55 16:40 15:02 WBC RBC Hgb Hct MCV MCH MCHC RDW Plt Count MPV Neut % (Auto) Lymph % (Auto) [place] % (Auto) Eos % (Auto) Baso % (Auto) Neut # (Auto) Lymph # (Auto) [place] # (Auto) Eos # (Auto) Baso # (Auto) Activated Clotting Time 398 H* Sodium Potassium Chloride Carbon Dioxide Anion Gap BUN Creatinine Estimated Creat Clear Estimated GFR Est GFR ( Amer) Glucose POC Glucose 150 H 157 H Calcium 11/10/18 12:07 WBC RBC Hgb Hct MCV MCH MCHC RDW Plt Count MPV Neut % (Auto) Lymph % (Auto) [place] % (Auto) Eos % (Auto) Baso % (Auto) Neut # (Auto) Lymph # (Auto) [place] # (Auto) Eos # (Auto) Baso # (Auto) Activated Clotting Time Sodium Potassium Chloride Carbon Dioxide Anion Gap BUN Creatinine Estimated Creat Clear Estimated GFR Est GFR ( Amer) Glucose POC Glucose 221 H Calcium DS: Diagnosis - Discharge Diagnosis (1) Shortness of breath Status: Acute (2) Hypertension Status: Acute (3) Hyperlipidemia associated with type 2 diabetes mellitus Status: Acute (4) A-fib Status: Acute (5) Diabetes 1.5, managed as type 2 Status: Acute (6) Obesity Status: Acute (7) Elevated erythrocyte sedimentation rate Status: Acute (8) CAD (coronary artery disease) Status: Acute (9) Abnormal stress test Status: Acute (10) Decreased cardiac ejection fraction Status: Acute (11) Ventricular hypokinesis Status: Acute (12) UTI (urinary tract infection), bacterial Status: Acute (13) ESBL (extended spectrum beta-lactamase) producing bacteria infection Status: Acute (14) Ischemic cardiomyopathy Status: Acute (15) LV dysfunction Status: Acute (16) Acute systolic (congestive) heart failure Status: Acute (17) UTI due to extended-spectrum beta lactamase (ESBL) producing Escherichia coli Status: Acute (18) 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 Status: Acute (19) Right main coronary artery thrombosis Status: Acute Discharge Plan - Patient Discharge Instructions ACTIVITY: Continue current activity DIET: continue same diet Patient Instructions: Congestive Heart Failure (Alternative Therapy), Heart Failure, Cardiac Catheterization, DI for Urinary Tract Infection (UTI), DI for Surgical Site Infection, DI for Chest Pain, DI for Extended Spectrum Beta- Lactamase Infection - Follow up Plan Disposition: [facility] Home Medications: Home Medications Medication Instructions Recorded Confirmed Type atorvastatin 20 mg tablet 20 mg PO HS 03/02/18 11/07/18 History gabapentin 600 mg tablet 600 mg PO TID 03/02/18 11/07/18 History hydrocodone 5 mg-acetaminophen 325 1 tab PO QID 03/02/18 11/07/18 History mg tablet lactulose 10 gram/15 mL oral 20 g PO DAILYP PRN 03/02/18 11/07/18 History solution loratadine 10 mg tablet 10 mg PO DAILY 03/02/18 11/07/18 History losartan 25 mg tablet 25 mg PO DAILY 03/02/18 11/07/18 History mirabegron ER 50 mg 50 mg PO DAILY 03/02/18 11/07/18 History tablet,extended release 24 hr polyethylene glycol 3350 17 17 gram PO DAILYP PRN 03/02/18 11/07/18 History gram/dose oral powder rivaroxaban 20 mg tablet 20 mg PO DAILY 03/02/18 11/07/18 History sertraline 100 mg tablet 200 mg PO DAILY 03/02/18 11/07/18 History trazodone 50 mg tablet 50 mg PO DAILY 03/02/18 11/07/18 History Acetaminophen [Acetaminophen Extra 500 mg PO Q4HP PRN 11/07/18 11/07/18 History Strength] Aspirin [Aspir 81] 81 mg PO DAILY 11/07/18 11/07/18 History Calcium Carbonate 500 mg PO BID 11/07/18 11/07/18 History glipiZIDE [Glipizide] 10 mg PO DAILY 11/07/18 11/07/18 History Prescriptions/Medication Reconciliation: New Clopidogrel Bisulfate [Plavix 75mg Tab] 75 mg PO DAILY tablet Furosemide [Lasix 40mg tablet] 40 mg PO BIDL tablet Pantoprazole Sodium [Protonix 40mg tablet] 40 mg PO DAILY tablet. Potassium Chloride [Klor-con 20 mEq tablet] 20 meq PO DAILY tablet Spironolactone [Aldactone 25mg Tab] 25 mg PO DAILY tablet Carvedilol [Coreg 6.25mg Tablet] 6.25 mg PO BID tablet Ertapenem Sodium [Invanz 1gm Vial] 1 gm IV Q24H vial Continued atorvastatin 20 mg tablet 20 mg PO HS loratadine 10 mg tablet 10 mg PO DAILY losartan 25 mg tablet 25 mg PO DAILY mirabegron ER 50 mg tablet,extended release 24 hr 50 mg PO DAILY sertraline 100 mg tablet 200 mg PO DAILY trazodone 50 mg tablet 50 mg PO DAILY gabapentin 600 mg tablet 600 mg PO TID hydrocodone 5 mg-acetaminophen 325 mg tablet 1 tab PO QID lactulose 10 gram/15 mL oral solution 20 g PO DAILYP PRN PRN Reason: Constipation polyethylene glycol 3350 17 gram/dose oral powder 17 gram PO DAILYP PRN PRN Reason: Constipation rivaroxaban 20 mg tablet 20 mg PO DAILY Calcium Carbonate 500 mg PO BID glipiZIDE [Glipizide] 10 mg PO DAILY Acetaminophen [Acetaminophen Extra Strength] 500 mg PO Q4HP PRN PRN Reason: PAIN Aspirin [Aspir 81] 81 mg PO DAILY
== END 2018-11-11 13:10 ==
LOC: 2ND 06:47 → ER 06:47 → 2ND 10:40 → ICU 11-10 14:51 → 2ND 11-10 15:21
PROVIDERS: ADMIT Emergency Medicine; ATTEND Emergency Medicine
CPT/HCPCS: 36415; 36569; 71010; 71045; 78452; 80048; 80061; 80076; 81001; 82962; 83735; 83880; 84484; 85025; 85347; 85651; 86140; 87086; 87088; 87186; 92928; 92929; 93005; 93017; 93306; 93458; 94761; 99152; 99153; 99284; A9502; C1725; C1751; C1760; C1769; C1876; C9600; C9601; G0378; J1335; J1644; J2405; J2785; Q9967

== ENCOUNTER → 2019-02-24 09:27 | Outpatient (CLI) | payer MEDICARE, MEDICAID, SELFPAY ==
--- NOTE | 2019-02-24 09:29 | US_ITS ---
US Arterial Lower Ext Rest History: ITS.REASON: pvd breast pain, right foot ulcer, diminished pulses ORDERING PHYSICIAN: Sialaja Koehler APRN PATIENT AGE: 78 years TECHNIQUE: Segmental pressures obtained of both right and left leg. These are compared to brachial blood pressure to yield index at each level sampled including summary JIAN. The data sheets from the procedure are available in PACS FINDINGS Rest study only performed today No prior studies available for comparison. Blood pressures reported are in millimeters mercury. RIGHT LEG JIAN = 0.7. RIGHT LEG TBI=0.5 Brachial BP: 136 Thigh BP: Noncompressible Calf BP: 104 Ankle PT: 100 Ankle DP : 123 Digit =63 LEFT LEG JIAN = 0.8 LEFT LEG TBI= 0.6 Brachial BPD: 129 Thigh BP: 148 Calf BP: 152 Ankle PT:111 Ankle DP: 112 Digit = 85 Pulses and waveforms: Diminished IMPRESSION: The ABIs are low on both sides suggesting moderate bilateral arterial disease
== END ==
PROVIDERS: PCP Family Medicine; Visit Provider Nurse Practitioner Family
DX: I73.9 Peripheral vascular disease, unspecified (principal)
CPT/HCPCS: 93923

== ENCOUNTER → 2019-05-16 08:18 | Outpatient (CLI) | payer MEDICARE, MEDICAID, SELFPAY | PROVIDERS: PCP Internal Medicine; Visit Provider Nurse Practitioner Family | DX: I48.20 Chronic atrial fibrillation, unspecified (principal); I50.9 Heart failure, unspecified | CPT/HCPCS: 93308 ==

== ENCOUNTER → 2019-06-06 14:41 | Outpatient (CLI) | payer MEDICARE, MEDICAID, SELFPAY ==
[2019-06-06 17:31] LABS: Alanine Aminotransferase 14 U/L (12-78); Alkaline Phosphatase 90 U/L (46-116); Aspartate Amino Transferase 13 U/L (15-37); Bilirubin,Direct 0.1 mg/dL (0.0-0.2); Bilirubin,Indirect 0.1 mg/dL (0.0-0.9); Bilirubin,Total 0.2 mg/dL (0.2-1.0); Free Thyroxine Index 2.3 ug/dL (5.93-13.13); T4 (Thyroxine) 6.9 ug/dl (4.7-13.3); Thyroid Stimulating Hormone 2.76 uIU/ml (0.358-3.740); Total Protein,Serum 7.3 gm/dL (6.4-8.2); Triiodothryronine (T3) Uptake 34 % (31-39)
== END ==
PROVIDERS: Visit Provider Urology
DX: E11.69 Type 2 diabetes mellitus with other specified complication (principal); E66.01 Morbid (severe) obesity due to excess calories; E78.5 Hyperlipidemia, unspecified; I25.110 Atherosclerotic heart disease of native coronary artery with unstable angina pectoris; I25.5 Ischemic cardiomyopathy; I50.9 Heart failure, unspecified; I73.9 Peripheral vascular disease, unspecified; R06.02 Shortness of breath; Z79.84 Long term (current) use of oral hypoglycemic drugs; I11.0 Hypertensive heart disease with heart failure
CPT/HCPCS: 36415; 80076; 84436; 84443; 84479

== ENCOUNTER 2019-12-26 12:23 | Emergency (ER) | payer MEDICARE, MEDICAID, SELFPAY ==
--- NOTE | 2019-12-26 12:19 | ECG_ITS ---
APPROVED REPORT Exam: Resting ECG HR:50 bpm ECG Measurements Heart Rate 50 AXES NJ 190 P 43 QRSd 116 QRS -18 QT 486 T 71 QTc 443 <Conclusion> Sinus bradycardia Low voltage QRS Incomplete right bundle branch block Incomplete LBBB Abnormal ECG Electronically signed by : Almas Kelly, 12/27/2019 13:20:38
[2019-12-26 12:23] VITALS: BP 123/50; PULSE 47; RESP 20; TEMP 36.8; O2SAT 88; O2SAT 90; BMI 29.0
--- NOTE | 2019-12-26 12:35 | XR_ITS ---
PROCEDURE: XR CHEST PORTABLE CLINICAL HISTORY: weakness COMPARISON: [id number] XR chest portable PICC plac from 11/10/2018 FINDINGS: Mild cardiomegaly without failure. Left hemidiaphragm is elevated. The lungs are clear without infiltrates, suspicious nodules, or pleural effusions. No acute bony abnormalities. IMPRESSION: No acute findings. Dictated by: Lenin Rojas MD 12/26/2019 13:33 Electronically signed by Lenin Rojas MD in [place] 12/26/2019 13:33
--- NOTE | 2019-12-26 12:36 | CT_ITS ---
PROCEDURE: CT HEAD/BRAIN WO CON CLINICAL INDICATION: ams . Altered mental status, altered level of consciousness, confusion, disorientation Head injury with headache/pain, contusion, abrasion or hematoma COMPARISON: No exams were available for comparison TECHNIQUE: Axial images obtained. All CT scans at the facility use one or more dose reduction, viz: automated exposure control, ma/kV adjustment per patient size (including targeted exams where dose is matched to indication, i.e. head), or iterative reconstruction technique. FINDINGS: No midline shift, mass effect, intracranial hemorrhage, hydrocephalus, or extra-axial fluid collection is evident. There is generalized atrophy with hypoattenuation of the periventricular white matter consistent with microangiopathic changes. There is an old right basal ganglia lacunar infarction the calvarium has an unremarkable appearance. There is a large scalp hematoma in the left parietal region the. No underlying calvarial fracture apparent no sinus air-fluid level. IMPRESSION: 1. No acute intracranial findings. 2. Large left parietal scalp hematoma Dictated by: Lenin Rojas MD 12/26/2019 13:36 Electronically signed by Lenin Rojas MD in [place] 12/26/2019 13:36
[2019-12-26 12:41] LABS: Microscopic, Urine URINE MICROSCOPIC (MICROSCOPIC)
[2019-12-26 12:42] LABS: Appearance,Urine CLEAR (Clear); Bilirubin,Urine Negative (Negative); Blood, Urine Negative (Negative); Color,Urine YELLOW (Yellow); Glucose,Urine (UA) Negative (Negative); Ketones,Urine Negative (Negative); Leukocyte Esterase,Urine TRACE (Negative); Nitrate,Urine Negative (Negative); PH,Urine 5.5 (5.0-8.5); Protein,Urine Negative (Negative); Specific Gravity, Urine 1.015 (1.005-1.030); Urobilinogen,Urine 0.2 EU/dl (0.2)
[2019-12-26 12:44] LABS: Chloride 98 mmol/L (98-107); Potassium 4.3 mmoL/L (3.5-5.1); Sodium 137 mmol/L (136-145)
[2019-12-26 12:46] LABS: Alanine Aminotransferase 28 U/L (12-78); Aspartate Amino Transferase 27 U/L (14-36); Basophils # 0.1 K/mm3 (0-0.2); Basophils % 0.6 % (0.1-2.0); Blood Urea Nitrogen 30 mg/dl (7-17); Creatinine Clearance Estimated 34 mL/min (50-200); Eosinophils # 0.3 K/mm3 (0.0-0.4); Eosinophils % 3.3 % (0.1-12.0); Estimated Glomerular Filt Rate 27 ml/min (>60); GFR (African American) 33 ML/MIN (>60); Hematocrit 36.2 % (37.0-47.0); Hemoglobin 11.9 g/dL (12.2-16.2); Lymphocytes # 1.4 K/mm3 (0.7-4.5); Mean Corpuscular Hemoglobin 31.6 pg (27.0-31.2); Mean Corpuscular Volume 95.8 fl (81-99); Mean Platelet Volume 7.8 fl (7.4-10.4); Monocytes # 0.5 K/mm3 (0.1-1.0); Monocytes % 5.4 % (1.7-9.3); Neutrophils # 6.7 K/mm3 (1.8-7.8); Neutrophils % 74.6 % (37.0-80.0); Platelet Count 201 K/mm3 (142-424); Red Blood Count 3.78 M/mm3 (4.20-5.40); Red Cell Distribution Width 14.6 % (11.5-17.5); White Blood Count 8.9 K/mm3 (4.8-10.8)
[2019-12-26 12:47] LABS: ABG HCO3 22.2 mmhg (22.0-26.0); ABG Oxygen Saturation 91 % (90-100); ABG PCO2 38.7 mmhg (35.0-45.0); ABG PH 7.38 mmol/L (7.35-7.45); ABG PO2 66.5 mmhg (80-100); ABG TCO2 23.4 mmhg (23-27)
[2019-12-26 12:47] LABS: Albumin Level 3.8 g/dl (3.5-5.0); Albumin/Globulin Ratio 1.1 (1.1-1.8); Alkaline Phosphatase 107 U/L (38-126); Anion Gap 12.3 mEq/L (5-15); Bilirubin,Total 0.6 mg/dl (0.2-1.3); Calcium 9.5 mg/dl (8.4-10.2); Carbon Dioxide 31 mmol/L (22.0-30.0); Globulin 3.6 g/dL (1.3-3.2); Glucose 263 mg/dl (74-100); Total Protein,Serum 7.4 g/dl (6.3-8.2)
[2019-12-26 12:48] LABS: Oxygen ROOM AIR %; Source R BRACHIAL
--- NOTE | 2019-12-26 12:50 | CT_ITS ---
PROCEDURE: CT CERVICAL SPINE WO CON CLINICAL INDICATION: Fall Neck injury with pain, contusion/abrasion or hematoma, cervical sprain/strain COMPARISON: No exams were available for comparison TECHNIQUE: Axial images obtained with sagittal and coronal reformats. All CT scans at the facility use one or more dose reduction, viz: automated exposure control, ma/kV adjustment per patient size (including targeted exams where dose is matched to indication, i.e. head), or iterative reconstruction technique. Axial spiral CT scanning performed of the cervical spine beginning at the base of the skull and continuing to the upper T-spine. 3-D multiplanar reconstruction with 3-D manipulation of volumetric data set in image rendering was completed by the radiologist and/or technologist with the supervision of the radiologist on independent workstation. FINDINGS: There is upper thoracic kyphosis with mid cervical lordosis. Patient's head is turned to the left with rotation of the cervical spine. No acute cervical fracture or dislocation. There is mild multilevel cervical spondylosis with mild degenerative disc disease and facet and uncovertebral arthrosis. There is 3 mm anterolisthesis C4 on C5 and 3 mm anterolisthesis of C7 on T1. There is minimal wedging of T2 anteriorly. This is age indeterminate. No retropulsion evident. IMPRESSION: 1. Degenerative changes, no acute cervical fracture. 2. Minimal wedging of T2 anteriorly age indeterminate. No retropulsion. Dictated by: Lenin Rojas MD 12/26/2019 13:40 Electronically signed by Lenin Rojas MD in [place] 12/26/2019 13:40
[2019-12-26 13:06] LABS: Troponin I < 0.01 ng/ml (0.00-0.034)
[2019-12-26 13:10] LABS: Bacteria,Urine 3+ /lpf
[2019-12-26 13:23] VITALS: BP 140/66; PULSE 45; O2SAT 93
--- NOTE | 2019-12-26 13:39 | HMH.EDGENADL ---
ED Disposition Clinical Impression: Malaise and fatigue Disposition: Home, Self-Care Condition on Discharge: Good Referrals: Provider,Referral, [Referring] - - Critical Care Critical Care Time: No Attestation: On 12/26/19, the high probability of a clinically significant, sudden or life threatening deterioration of the following system(s) required my full and direct attention, intervention and personal management. The time I documented below is in addition to time spent performing reported procedures but includes the following listed in this critical care notation. Medical Decision Making - Neeraj Inquiry Pt receiving controlled substance: No Neeraj was queried for this patient: No Vital Signs: 12/26/19 12:23 12/26/19 13:23 12/26/19 16:15 Temperature 98.3 F 98.2 F Temperature Source Rectal Pulse Rate 80 Pulse Rate [Right] 47 L 45 L Respiratory Rate 20 20 Blood Pressure 154/87 H Blood Pressure [Right Arm] 123/50 L 140/66 Blood Pressure Mean [Right Arm] 74 90 Blood Pressure Source [Right Arm] Automatic Cuff Automatic Cuff Blood Pressure Position [Right Arm] Supine Supine 02 Sat by Pulse Oximetry 88 L 93 L Oxygen Delivery Method Room Air Room Air - Lab Data Lab Results 12/26/19 12:27: Urine Color Yellow, Urine Appearance Clear, Urine pH 5.5, Ur Specific Ranger 1.015, Urine Protein Negative, Urine Glucose (UA) Negative, Urine Ketones Negative, Urine Blood Negative, Urine Nitrate Negative, Urine Bilirubin Negative, Urine Urobilinogen 0.2, Ur Leukocyte Esterase Trace, Urine RBC 3-5, Urine WBC 5-10, Ur Squamous Epith Cells 3-5, Urine Bacteria 3+ 12/26/19 12:27: WBC 8.9, RBC 3.78 L, Hgb 11.9 L, Hct 36.2 L, MCV 95.8, MCH 31.6 H, MCHC 33.0, RDW 14.6, Plt Count 201, MPV 7.8, Neut % (Auto) 74.6, Lymph % (Auto) 16.0, [place] % (Auto) 5.4, Eos % (Auto) 3.3, Baso % (Auto) 0.6, Neut # (Auto) 6.7, Lymph # (Auto) 1.4, [place] # (Auto) 0.5, Eos # (Auto) 0.3, Baso # (Auto) 0.1 06/08/20 12:27: Sodium 137, Potassium 4.3, Chloride 98, Carbon Dioxide 31 H, Anion Gap 12.3, BUN 30 H, Creatinine 1.80 H, Estimated Creat Clear 34, Estimated GFR 27 L, Est GFR ( Amer) 33 L, Glucose 263 H, Calcium 9.5, Total Bilirubin 0.6, AST 27, ALT 28, Alkaline Phosphatase 107, Troponin I < 0.01, Total Protein 7.4, Albumin 3.8, Globulin 3.6 H, Albumin/Globulin Ratio 1.1 12/26/19 12:44: Specimen Source R brachial, O2 % Room air, ABG pH 7.38, ABG pCO2 38.7, ABG pO2 66.5 L, ABG HCO3 22.2, ABG Total CO2 23.4, ABG O2 Saturation 91, ABG Base Excess -3.0 L Result diagrams: 12/26/19 12:27 12/26/19 12:27 Orders (Tests/Meds): ORDERS Category Date Time Status Urine Culture Stat Micro 12/26/19 12:27 Received Medical Decision Narrative: In summary patient is a 79-year-old female who presents the emergency department for evaluation of generalized malaise, and recent fall. Physical exam patient does complain of mild pain to her neck, but has no other complaints. Patient's vital signs significant for bradycardia, but blood pressure is normal. Appropriate work-up initiated including CT head, CT C-spine, chest x-ray, and basic labs. Labs returned significant for mild anemia, are stable compared to previous EKG shows sinus bradycardia, no ST elevation, depression, or QT prolongation noted. Chest X-ray shows: No acute findings. CTs returned showin. Degenerative changes, no acute cervical fracture. 2. Minimal wedging of T2 anteriorly age indeterminate. No retropulsion. 1. No acute intracranial findings. 2. Large left parietal scalp hematoma On re-evaluation patient has no tenderness to T spine. With no significant abnormalities, or injuries I believe patient is appropriate for [facility] back to [facility]. General Adult HPI - General Chief complaint: Weakness Stated complaint: weakness Time Seen by Provider: 12/26/19 12:30 Mode of Arrival: EMS Limitations: No Limitations Description of Symptoms (Recalled fr
--- NOTE | 2019-12-26 15:00 | PC.NURSE ---
NOTIFIED MARKY PT WAS READY FOR TRANSPORT BACK TO [facility]
[2019-12-26 16:15] VITALS: BP 154/87; PULSE 80; RESP 20; TEMP 36.8; O2SAT 98
== END 2019-12-26 16:16 | disposition home or self-care (01) ==
PROVIDERS: Emergency Provider Emergency Medicine; PCP Family Medicine
DX: R53.81 Other malaise (principal); I48.91 Unspecified atrial fibrillation; I25.10 Atherosclerotic heart disease of native coronary artery without angina pectoris; I10 Essential (primary) hypertension; F41.8 Other specified anxiety disorders; E11.9 Type 2 diabetes mellitus without complications; K21.9 Gastro-esophageal reflux disease without esophagitis; M81.0 Age-related osteoporosis without current pathological fracture; Z88.7 Allergy status to serum and vaccine; Z87.891 Personal history of nicotine dependence; Z79.899 Other long term (current) drug therapy
CPT/HCPCS: 70450; 71045; 72125; 80053; 81001; 82803; 84484; 85025; 87086; 87088; 87186; 93005; 99284

== ENCOUNTER 2020-01-08 12:11 | Emergency (ER) | payer MEDICARE, MEDICAID, SELFPAY ==
[2020-01-08 12:12] VITALS: BP 111/50; PULSE 42; RESP 10; TEMP 37.1; O2SAT 94; BMI 38.6
--- NOTE | 2020-01-08 12:24 | CT_ITS ---
PROCEDURE: CT HEAD/BRAIN WO CON CLINICAL INDICATION: head injury Drainage from large scalp hematoma, headaches COMPARISON: CT HEAD/BRAIN WO CON from 12/26/2019 TECHNIQUE: Axial images obtained. All CT scans at the facility use one or more dose reduction, viz: automated exposure control, ma/kV adjustment per patient size (including targeted exams where dose is matched to indication, i.e. head), or iterative reconstruction technique. FINDINGS: The basilar cisterns are prominent. Again noted is the old ischemic infarct right basal ganglia. Ventricular system is normal for age. There are periventricular hypodensities consistent with chronic ischemic white matter changes. The sylvian fissures and cortical sulci are prominent. There is no extra-axial fluid collection. Again noted is a large scalp hematoma though it appears less hyperintense on today's study consistent with progressive healing of the hematoma. 4 the bony calvarium appears intact. A couple of focal calcified dural plaques noted. 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 Interval decrease in density of the large scalp hematoma when compared to the recent study Dictated by: Dr. Alistair Garcia MD 01/08/2020 13:[address] Alistair Garcia MD in [place] 01/08/2020 13:01
--- NOTE | 2020-01-08 12:45 | PC.NURSE ---
Pt with rad.
[2020-01-08 12:57] VITALS: BP 127/49; PULSE 50; O2SAT 92
--- NOTE | 2020-01-08 13:36 | HMH.EDGENADL ---
ED Disposition Clinical Impression: Hematoma Disposition: Home, Self-Care Condition on Discharge: Good Instructions: DI for Closed Head Injury Referrals: Provider,Referral, [Primary Care Provider] - - Critical Care Critical Care Time: No Attestation: On 01/08/20, the high probability of a clinically significant, sudden or life threatening deterioration of the following system(s) required my full and direct attention, intervention and personal management. The time I documented below is in addition to time spent performing reported procedures but includes the following listed in this critical care notation. Medical Decision Making - Medical Records Medical records reviewed: Yes: I reviewed the patient's medical records. - Neeraj Inquiry Pt receiving controlled substance: No Vital Signs: 01/08/20 12:12 01/08/20 12:57 Temperature 98.7 F Temperature Source Oral Pulse Rate [Left Radial] 42 L 50 L Respiratory Rate 10 L Blood Pressure [Right Radial Artery] 111/50 L 127/49 L Blood Pressure Mean [Right Radial Artery] 70 75 Blood Pressure Source [Right Radial Artery] Automatic Cuff Blood Pressure Position [Right Radial Artery] Sitting Sitting 02 Sat by Pulse Oximetry 94 L 92 L Oxygen Delivery Method Room Air Room Air - Lab Data Lab results reviewed: Yes: I reviewed the patient's lab results. Orders (Tests/Meds): ORDERS Category Date Time Status CMP [Comprehensive Metabolic Panel] Stat Lab 01/08/20 12:53 Ordered Complete Blood Count Auto Diff Stat Lab 01/08/20 12:53 Ordered Urinalysis and Microscopic Stat Lab 01/08/20 12:53 Ordered - CT Data CT Scan: Head Time Received: 13:[address] Reviewed: Yes: I have viewed the radiologist's interpretation Preliminary Findings: Normal/NAD General Adult HPI - General Chief complaint: Head Injury Stated complaint: head injury Time Seen by Provider: 01/08/20 13:30 Mode of Arrival: EMS Limitations: Physical Limitations Description of Symptoms (Recalled from ER Triage Doc. by RN): to ed per squad report of severe headache and drainage from scalp hematoma. pt with hx of fall seen in ed 12/[address] and d/oleksandr back to alf. pt drowsey, responds to verbal stimuli, slurred speech. pt denies any c/o at present - History of Present Illness HPI narrative: 9-year-old female presents the ED with headache. She has a large hematoma on the back of her head secondary to a fall about 8 days ago. She was presented here and had a CT done and no acute abnormality was seen. No other history was obtained from alf. - Related Data Home Medications Medication Instructions Recorded Confirmed atorvastatin 20 mg tablet 20 mg PO HS 03/02/18 07/04/19 gabapentin 600 mg tablet 600 mg PO TID 03/02/18 07/04/19 hydrocodone 5 mg-acetaminophen 325 1 tab PO QID 03/02/18 07/04/19 mg tablet lactulose 10 gram/15 mL oral 20 g PO DAILYP PRN 03/02/18 07/04/19 solution loratadine 10 mg tablet 10 mg PO DAILY 03/02/18 07/04/19 mirabegron 50 mg tablet,extended 50 mg PO DAILY 03/02/18 07/04/19 release 24 hr polyethylene glycol 3350 17 17 g PO DAILYP PRN 03/02/18 07/04/19 gram/dose oral powder sertraline 100 mg tablet 200 mg PO DAILY 03/02/18 07/04/19 trazodone 50 mg tablet 50 mg PO DAILY 03/02/18 07/04/19 Acetaminophen [Acetaminophen Extra 500 mg PO Q4HP PRN 11/07/18 07/04/19 Strength] Calcium Carbonate 500 mg PO BID 11/07/18 07/04/19 glipiZIDE [Glipizide] 10 mg PO DAILY 11/07/18 07/04/19 furosemide 40 mg tablet 40 mg PO BID tab 11/16/18 07/04/19 bupropion HCl 150 mg 24 hr tablet, 150 mg PO DAILY 02/15/19 07/04/19 extended release metformin 500 mg tablet 500 mg PO BID 02/15/19 07/04/19 omega-3 fatty acids 1,000 mg 1,000 mg PO DAILY 02/15/19 07/04/19 capsule amiodarone 200 mg tablet 200 mg PO DAILY tab 06/06/19 07/04/19 ondansetron HCl 4 mg tablet 4 mg PO QID PRN 07/04/19 07/04/19 losartan 25 mg tablet 25 mg PO DAILY tab 08/09/19
[2020-01-08 13:59] VITALS: BP 121/48; PULSE 50; O2SAT 96
--- NOTE | 2020-01-08 14:21 | PC.NURSE ---
report called to juan medrano nh
[2020-01-08 14:22] VITALS: BP 140/92; PULSE 48; RESP 10; TEMP 36.6; O2SAT 97
== END 2020-01-08 14:24 | disposition home or self-care (01) ==
PROVIDERS: Emergency Provider Family Medicine
DX: S00.03XA Contusion of scalp, initial encounter (principal); W01.0XXA Fall on same level from slipping, tripping and stumbling without subsequent striking against object, initial encounter; Y92.129 Unspecified place in nursing home as the place of occurrence of the external cause; I48.20 Chronic atrial fibrillation, unspecified; I25.10 Atherosclerotic heart disease of native coronary artery without angina pectoris; F41.8 Other specified anxiety disorders; E11.9 Type 2 diabetes mellitus without complications; K21.9 Gastro-esophageal reflux disease without esophagitis; I10 Essential (primary) hypertension; E78.5 Hyperlipidemia, unspecified; M81.0 Age-related osteoporosis without current pathological fracture; Z87.891 Personal history of nicotine dependence; Z90.79 Acquired absence of other genital organ(s); Z79.899 Other long term (current) drug therapy; Z88.7 Allergy status to serum and vaccine
CPT/HCPCS: 70450; 99283

== ENCOUNTER 2020-03-14 23:00 | Inpatient (IN) | payer MEDICARE, MEDICAID, SELFPAY ==
[2020-03-14 23:02] VITALS: BP 143/128; PULSE 88; RESP 16; TEMP 37.2; O2SAT 92; BMI 28.1
--- NOTE | 2020-03-14 23:13 | HMH.EDGENADL ---
ED Disposition Clinical Impression: Dehydration, History of CVA (cerebrovascular accident), Left hemiparesis, Sinus bradycardia, JACKLYN (acute kidney injury) Altered mental status Qualifiers: Altered mental status type: somnolence Qualified Code(s): R40.0 - Somnolence UTI (urinary tract infection) Qualifiers: Urinary tract infection type: site unspecified Hematuria presence: without hematuria Qualified Code(s): N39.0 - Urinary tract infection, site not specified Disposition: Admitted As Inpatient Condition on Discharge: Serious Referrals: Emmanuel Barrios [Primary Care Provider] - - Critical Care Critical Care Time: Yes Attestation: On 03/14/20, the high probability of a clinically significant, sudden or life threatening deterioration of the following system(s) required my full and direct attention, intervention and personal management. The time I documented below is in addition to time spent performing reported procedures but includes the following listed in this critical care notation. Total Critical Care Time: 35 Vital system(s) involved:: Renal Failure My critical care processes included: Assessment & monitoring of V/S, Initial and Re-exams, Data Review/Interpretation, Coordinating Care, Medication Orders and management, Documentation Medical Decision Making - Neeraj Inquiry Pt receiving controlled substance: No Vital Signs: 03/14/20 23:02 03/15/20 00:16 03/15/20 00:46 Temperature 99.0 F Temperature Source Rectal Pulse Rate [Right] 88 71 61 Respiratory Rate 16 16 16 Blood Pressure [Right Arm] 143/128 H 119/53 L 110/56 L Blood Pressure Mean [Right Arm] 133 75 74 Blood Pressure Source [Right Arm] Automatic Cuff Automatic Cuff Blood Pressure Position [Right Arm] Supine Sitting 02 Sat by Pulse Oximetry 92 L 98 98 Oxygen Delivery Method Room Air Nasal Cannula Nasal Cannula Oxygen Flow Rate (LPM) 4 4 - Lab Data Lab Results 03/14/20 23:15: WBC 13.6 H, RBC 4.14 L, Hgb 13.0, Hct 38.9, MCV 93.9, MCH 31.5 H, MCHC 33.5, RDW 15.1, Plt Count 213, MPV 8.5, Neut % (Auto) 84.3 H, Lymph % (Auto) 9.6 L, Bradley % (Auto) 4.3, Eos % (Auto) 1.4, Baso % (Auto) 0.4, Neut # (Auto) 11.5 H, Lymph # (Auto) 1.3, Bradley # (Auto) 0.6, Eos # (Auto) 0.2, Baso # (Auto) 0.1 03/14/20 23:15: Sodium 144, Potassium 3.9, Chloride 102, Carbon Dioxide 29, Anion Gap 16.9 H, BUN 60 H, Creatinine 3.30 H, Estimated Creat Clear 18, Estimated GFR 14 L*, Est GFR ( Amer) 16 L*, Glucose 210 H, Calcium 10.2, Total Bilirubin 0.5, AST 65 H, ALT 73, Alkaline Phosphatase 261 H, Troponin I 0.04 H, Total Protein 7.7, Albumin 3.7, Globulin 4.0 H, Albumin/Globulin Ratio 0.9 L 03/14/20 23:15: Lactate 1.2 03/14/20 23:15: SARS-CoV-2 IgG Ab (Rapid) Negative, SARS-CoV-2 IgM Ab (Rapid) Negative 03/14/20 23:27: Urine Color Yellow, Urine Appearance Clear, Urine pH 8.0, Ur Specific [place] 1.015, Urine Protein 1+, Urine Glucose (UA) Negative, Urine Ketones Negative, Urine Blood 2+, Urine Nitrate Negative, Urine Bilirubin Negative, Urine Urobilinogen 0.2, Ur Leukocyte Esterase 2+ A, Urine RBC 3-5, Urine WBC 10-20, Ur Squamous Epith Cells 5-10, Urine Bacteria 4+ Result diagrams: 03/14/20 23:15 03/14/20 23:15 Orders (Tests/Meds): ED MEDICATIONS Generic Name Dose Route Start Last Admin Trade Name Freq PRN Reason Stop Dose Admin Ertapenem 1 gm/ Sodium 50 mls @ 100 mls/hr 03/14/20 23:45 03/15/20 00:13 Chloride IV 03/28/20 23:44 100 mls/hr Q24H KAT Administration Protocol Discontinued Medications Generic Name Dose Route Start Last Admin Trade Name Freq PRN Reason Stop Dose Admin Sodium Chloride 1,000 ml 03/14/20 23:54 03/15/20 00:13 Sod Chlor 0.9% 1000ml Bag IV 03/14/20 23:55 1,000 ml BOLUS ONE Administration ORDERS Category Date Time Status CT head/brain wo con Stat Cat Scan 08/26/20 23:22 Ordered XR chest portable Stat Exams 03/14/20 23:20 Ordered Troponin I Q3H Lab 03/15/20 02:30 Ordered Troponin I Q3H Lab 03/15/20
--- NOTE | 2020-03-14 23:16 | ECG_ITS ---
APPROVED REPORT Exam: Resting ECG HR:53 bpm ECG Measurements Heart Rate 53 AXES VA 212 P 67 QRSd 158 QRS -30 QT 482 T 108 QTc 452 <Conclusion> Sinus rhythm Left axis deviation Left bundle branch block Abnormal ECG Electronically signed by : Jean Dhaliwal, 03/17/2020 07:06:52
--- NOTE | 2020-03-14 23:20 | XR_ITS ---
PROCEDURE: XR CHEST PORTABLE CLINICAL HISTORY: hypoxia COMPARISON: CR [id number] XR chest portable PICC plac from 11/10/2018 CR XR CHEST PORTABLE from 12/26/2019 FINDINGS: The cardiomediastinal silhouette and pulmonary vascularity are within normal limits. The lungs are clear without infiltrates, suspicious nodules, or pleural effusions. No acute bony abnormalities. IMPRESSION: No acute findings. Dictated by: Lenin Rojas MD 03/15/2020 04:45 Lenin Rojas MD in [facility] 03/15/2020 04:45
--- NOTE | 2020-03-14 23:22 | CT_ITS ---
PROCEDURE: CT HEAD/BRAIN WO CON CLINICAL INDICATION: Altered mental status Altered mental status, altered level of consciousness, confusion, disorientation COMPARISON: CT CT HEAD/BRAIN WO CON from 01/08/2020 TECHNIQUE: Axial images obtained. All CT scans at the facility use one or more dose reduction, viz: automated exposure control, ma/kV adjustment per patient size (including targeted exams where dose is matched to indication, i.e. head), or iterative reconstruction technique. FINDINGS: No midline shift, mass effect, intracranial hemorrhage, hydrocephalus, or extra-axial fluid collection is evident. There is generalized atrophy with hypoattenuation of the periventricular white matter consistent with microangiopathic changes. The calvarium has an unremarkable appearance. No mastoid effusion. No sinus air-fluid level. IMPRESSION: No acute intracranial finding Dictated by: Lenin Rojas MD 03/15/2020 05:03 Lenin Rojas MD in [facility] 03/15/2020 05:03
[2020-03-14 23:27] LABS: Basophils # 0.1 K/mm3 (0-0.2); Basophils % 0.4 % (0.1-2.0); Eosinophils # 0.2 K/mm3 (0.0-0.4); Eosinophils % 1.4 % (0.1-12.0); Hematocrit 38.9 % (37.0-47.0); Lymphocytes # 1.3 K/mm3 (0.7-4.5); Lymphocytes % 9.6 % (10-50); Mean Corpuscular HGB Conc 33.5 g/dL (31.8-35.4); Mean Corpuscular Hemoglobin 31.5 pg (27.0-31.2); Mean Corpuscular Volume 93.9 fl (81-99); Mean Platelet Volume 8.5 fl (7.4-10.4); Monocytes # 0.6 K/mm3 (0.1-1.0); Monocytes % 4.3 % (1.7-9.3); Neutrophils # 11.5 K/mm3 (1.8-7.8); Neutrophils % 84.3 % (37.0-80.0); Platelet Count 213 K/mm3 (142-424); Red Blood Count 4.14 M/mm3 (4.20-5.40); Red Cell Distribution Width 15.1 % (11.5-17.5); White Blood Count 13.6 K/mm3 (4.8-10.8)
[2020-03-14 23:33] LABS: Appearance,Urine CLEAR (Clear); Bilirubin,Urine Negative (Negative); Blood, Urine 2+ (Negative); Color,Urine YELLOW (Yellow); Glucose,Urine (UA) Negative (Negative); Ketones,Urine Negative (Negative); Leukocyte Esterase,Urine 2+ (Negative); Microscopic, Urine URINE MICROSCOPIC (MICROSCOPIC); Nitrate,Urine Negative (Negative); Protein,Urine 1+ (Negative); Specific Gravity, Urine 1.015 (1.005-1.030); Urobilinogen,Urine 0.2 EU/dl (0.2)
[2020-03-14 23:37] LABS: Alanine Aminotransferase 73 U/L (12-78); Albumin Level 3.7 g/dl (3.5-5.0); Albumin/Globulin Ratio 0.9 (1.1-1.8); Alkaline Phosphatase 261 U/L (38-126); Anion Gap 16.9 mEq/L (5-15); Aspartate Amino Transferase 65 U/L (14-36); Bilirubin,Total 0.5 mg/dl (0.2-1.3); Blood Urea Nitrogen 60 mg/dl (7-17); Calcium 10.2 mg/dl (8.4-10.2); Carbon Dioxide 29 mmol/L (22.0-30.0); Chloride 102 mmol/L (98-107); Creatinine Clearance Estimated 18 mL/min (50-200); Estimated Glomerular Filt Rate 14 ml/min (>60); GFR (African American) 16 ML/MIN (>60); Glucose 210 mg/dl (74-100); Potassium 3.9 mmoL/L (3.5-5.1); Sodium 144 mmol/L (136-145); Total Protein,Serum 7.7 g/dl (6.3-8.2)
[2020-03-14 23:38] LABS: Lactic Acid 1.2 mmol/L (0.7-2.1)
[2020-03-14 23:44] LABS: Bacteria,Urine 4+ /lpf
[2020-03-14 23:50] LABS: Troponin I 0.04 ng/ml (0.00-0.034)
[2020-03-15] VITALS (16 sets, daily range): BP systolic 110–173; BP diastolic 33–81; PULSE 45–71; RESP 14–18; TEMP 36.5–37.2; O2SAT 93–99; BMI 25.6
[2020-03-15 00:26] LABS: Coronavirus 19 IgG Antibody Negative (Negative); Coronavirus 19 IgM Antibody Negative (Negative)
--- NOTE | 2020-03-15 01:49 | PC.NURSE ---
patient up to floor via stretcher
[2020-03-15 03:22] LABS: Troponin I 0.04 ng/ml (0.00-0.034)
[2020-03-15 05:44] LABS: Basophils # 0.1 K/mm3 (0-0.2); Basophils % 0.5 % (0.1-2.0); Eosinophils # 0.3 K/mm3 (0.0-0.4); Eosinophils % 2.1 % (0.1-12.0); Hematocrit 37.2 % (37.0-47.0); Hemoglobin 12.1 g/dL (12.2-16.2); Lymphocytes # 1.9 K/mm3 (0.7-4.5); Lymphocytes % 14.2 % (10-50); Mean Corpuscular HGB Conc 32.4 g/dL (31.8-35.4); Mean Corpuscular Hemoglobin 31.7 pg (27.0-31.2); Mean Corpuscular Volume 97.6 fl (81-99); Mean Platelet Volume 8.2 fl (7.4-10.4); Monocytes # 0.8 K/mm3 (0.1-1.0); Monocytes % 6.3 % (1.7-9.3); Neutrophils # 10.2 K/mm3 (1.8-7.8); Neutrophils % 76.8 % (37.0-80.0); Platelet Count 166 K/mm3 (142-424); Red Blood Count 3.81 M/mm3 (4.20-5.40); Red Cell Distribution Width 15.1 % (11.5-17.5); White Blood Count 13.3 K/mm3 (4.8-10.8)
[2020-03-15 05:48] LABS: Chloride 110 mmol/L (98-107); Sodium 148 mmol/L (136-145)
[2020-03-15 05:51] LABS: Blood Urea Nitrogen 59 mg/dl (7-17); Calcium 9.8 mg/dl (8.4-10.2); Carbon Dioxide 28 mmol/L (22.0-30.0); Creatinine Clearance Estimated 20 mL/min (50-200); Estimated Glomerular Filt Rate 16 ml/min (>60); GFR (African American) 20 ML/MIN (>60); Glucose 147 mg/dl (74-100)
[2020-03-15 06:03] LABS: Troponin I 0.04 ng/ml (0.00-0.034)
--- NOTE | 2020-03-15 06:56 | PC.NURSE ---
Pt continues to only be responsive to painful stimuli. Pt does move her limbs R>L d/t prev CVA deficits. PLeft arm noted to be contracted. RLE crosses over LLE on several occasions. Pt has been turned or repositioned q2 and tolerated well. Pt has remained afebrile since arrival to the floor. Sinus Vikram, junctional rhythm with 1st degree AVB, IVCD, and prolonged QT interval noted on cardiac monitoring t/o this shift. Pts HR has majorily stayed in the 40's a few times has dropped to upper 30's for a brief instance. Artifact also noted very frequently d/t pt's tremors. Lynne cath in place draining pale ylw, turbid, and malodorous urine to gravity. Pt's FS this AM was 130. Pt titrated from 4LPM to 2LPM NC, tolerated well with SaO2 >95% thus far. Pt's daughter at bedside and resting quietly.
[2020-03-15 06:59] LABS: POC Glucose,Bedside 130 (70-110)
--- NOTE | 2020-03-15 07:34 | P.CONPHA_ITS ---
[facility] Pharmacy VTE Monitoring - Patient Demographics Admission date: 03/15/20 Report Date: 03/15/20 Time: 07:34 Allergies/Adverse Reactions: Patient Allergies influenza virus vaccine, specific [INFLUENZA VIRUS VACC,SPECIFIC] Adverse Reaction (Unknown, Verified 08/09/19 09:45) STATES GAVE HER THE FLU Height: 1.7 m Weight: 74.162 kg Patient Problems: Current Active Problems (Last Updated 02/15/19 @ 14:25 by Rosalina Snyder RN) Altered mental status (Acute) UTI (urinary tract infection) (Acute) Dehydration (Acute) History of CVA (cerebrovascular accident) (Acute) Left hemiparesis (Acute) Sinus bradycardia (Acute) JACKLYN (acute kidney injury) (Acute) - VTE Risk Labs: VTE Related Lab Results Hgb 12.1 g/dL (12.2-16.2) L 03/15/20 05:30 Hct 37.2 % (37.0-47.0) 03/15/20 05:30 Plt Count 166 K/mm3 (142-424) 03/15/20 05:30 BUN 59 mg/dl (7-17) H 03/15/20 05:30 Creatinine 2.80 mg/dl (0.52-1.04) H 03/15/20 05:30 Estimated Creat Clear 20 mL/min (50-200) 03/15/20 05:30 Was VTE Risk Assessment Performed: Yes VTE Score: 10 VTE Risk Level: Moderate Risk Clinical Trial Participant: No - Prophylaxis VTE Prophylaxis Ordered?: Yes Types of VTE Prophylaxis: TEDS Knee High
--- NOTE | 2020-03-15 08:45 | HMH.PHAINT ---
MED REC-MED LIST COMPARED TO [facility] LIST.
--- NOTE | 2020-03-15 08:53 | HMH.HP ---
*Admission Date: 03/15/20 *Chief complaint: AMS *History of present illness: Ms Contreras is a 79yo female who was brought in by ambulance from [facility]. She is unable to give any history on her own. custodial transfer form states that a [employer] found her unresponsive but then she became responsive to her name and attempting to follow commands. Reportedly had frothy sputum and was suctioned. Had wheezing, chest noted to be full . Blood pressure and pulse were reportedly decreased but blood pressure noted on transfer form was 108/50. Heart rate noted to be 44. O2 saturation low, noted to be 84. Started on 2 L nasal cannula at the jail. Fingerstick blood sugar was 243 at the jail. Review of prior records indicates the patient has a prior CVA with a left hemiparesis. She is noted to be wheelchair-bound. (above from ER) Upon work-up in the emergency room, her white count was found to be elevated. She was in renal failure and her troponins were elevated. She was felt to have a urinary tract infection. She was admitted and started on IV fluids as well as IV antibiotics. Her urine and blood cultures are still pending. [facility] History I have reviewed the patient's past medical history: Yes Medical History: Reports:: Anxiety, Atrial Fibrillation, Cardiomyopathy, Congestive Heart Failure, Coronary Artery Disease, Deep Vein Thrombosis, Depression, Diabetes Mellitus Type 2, Gastroesophageal Reflux Disease(GERD), Hyperlipidemia, Hypertension, Osteoporosis, Peripheral Artery Disease, Pulmonary Embolism, Urinary Tract Infection Denies:: Cancer, Diabetes Mellitus Type 1, MRSA, Seizures *Have you ever received a pneumonia vaccine?: Yes *Have you received a flu vaccine this season?: No Other Medical History: Reports: Arthritis, Osteoporosis Other Surgeries: Yes: Cardiac Catheterization, Coronary Stent, Hysterectomy-Total, Other Amputation: No Fractures: No - *Social History Smoking Status: Former smoker # Packs/Day (cigarettes): 1 Alcohol Intake: never Substance Use Type: denies use *Occupational Status:: retired Housing: jail Household Members: other *Travel in the last 8 weeks: None - Psychiatric History Pschychiatric History:: Reports:: Anxiety, Depression Family Hx:: Diabetes Review of Systems - Review of Systems Review of systems:: unable to obtain Meds Home Medications Medication Instructions Recorded Confirmed Type atorvastatin 20 mg tablet 20 mg PO HS 03/02/18 03/15/20 History gabapentin 600 mg tablet 600 mg PO BID 03/02/18 03/15/20 History hydrocodone 5 mg-acetaminophen 325 1 tab PO TID 03/02/18 03/15/20 History mg tablet lactulose 10 gram/15 mL oral 20 g PO DAILYP PRN 03/02/18 03/15/20 History solution loratadine 10 mg tablet 10 mg PO DAILY 03/02/18 03/15/20 History sertraline 100 mg tablet 200 mg PO HS 03/02/18 03/15/20 History trazodone 50 mg tablet 25 mg PO DAILY 03/02/18 03/15/20 History Acetaminophen [Acetaminophen Extra 500 mg PO Q4HP PRN 11/07/18 03/14/20 History Strength] furosemide 40 mg tablet 40 mg PO DAILY tab 11/16/18 03/15/20 History bupropion HCl 150 mg 24 hr tablet, 300 mg PO DAILY 02/15/19 03/15/20 History extended release omega-3 fatty acids 1,000 mg 1,000 mg PO DAILY 02/15/19 03/15/20 History capsule amiodarone 200 mg tablet 200 mg PO DAILY tab 06/06/19 03/15/20 History Clopidogrel Bisulfate [Plavix 75mg 75 mg PO DAILY 03/14/20 03/15/20 History Tab] Docusate Sodium [Colace] 100 mg PO BID 03/14/20 03/15/20 History Famotidine [Pepcid 20mg Tablet] 20 mg PO BID 03/14/20 03/15/20 History Melatonin 10 mg PO HS 03/14/20 03/15/20 History Mirabegron [Myrbetriq] 50 mg PO DAILY 03/14/20 03/15/20 History Mirtazapine [Remeron] 15 mg PO HS 03/14/20 03/15/20 History Multivitamin [Multivitamins] 1 each PO HS 03/14/20 03/15/20 History Rivaroxaban [Xarelto] 15 mg PO DAILY 03/14/20 03/15/20 History Spironolactone [Aldactone 25mg 25 mg PO DAILY 03/14/20 08
--- NOTE | 2020-03-15 11:15 | SW/DCPLANNER ---
Addendum entered by Lea Traore 03/19/20 14:10: Negative COVID results are back and I have faxed that along with discharge summary to [facility]. I have also spoke with Kirstin at [facility] to inform them this patient will be returning today. Patient will discharge ICF level of care. Addendum entered by Lea Traore 03/19/20 10:48: I have informed May with [facility] that this patient is currently is ready for discharge pending NEGATIVE COVID results. Results will hopefully be back later today or tomorrow. Addendum entered by Lea Traore 03/16/20 11:22: This patient will require a NEGATIVE COVID within 48 hours prior to discharge back to [facility]. Addendum entered by Lea Traore 03/16/20 09:23: Updated patient information has been faxed to [facility]. Original Note: Patient currently resides at [facility] ICF level of care per May. Updated patient information has been faxed to May at [facility]. I will continue to update May until patient is stable for discharge.
[2020-03-15 12:30] LABS: POC Glucose,Bedside 123 (70-110)
--- NOTE | 2020-03-15 16:25 | PC.NURSE ---
Addendum entered by Sailaja Chairez RN 03/15/20 19:14: Pt is currently awake with her eyes open and speaking clearly. Pt answers questions and is alert to person. Pt states full name but reports that she is unable to remember her birthday at this time. Pt took 1700 dose of PO Xarelto without issue. Pt drank a cup of water, ate a piece of fish, and a cup of pudding. Received call from POA regarding pt condition and informed her of the pt's current condition. Original Note: Pt is only responsive to painful stimuli this shift. GCS remains at 7. Pt has had no oral intake this shift and PO medications are being held. Lungs CTA. Pt is receiving O2 @ 2 LPM via NC with sats. >93%. No edema noted. Telemetry reveals Sinus Bradycardia with occasional PVC's. Scab noted to LT side of head due to a previous fall. Pt has been turned/repositioned Q2H this shift. 1 small, brown, soft BM this shift. F/C patent and draining cloudy, yellow urine at bedside to gravity. FSBS results have been 123 and 100. 18 G peripheral IV in the RT AC is patent and infusing NS @ 100 ML/HR. VSS. Family at bedside with call light in reach. Will continue to monitor.
[2020-03-15 16:29] LABS: POC Glucose,Bedside 100 (70-110)
[2020-03-15 20:24] LABS: POC Glucose,Bedside 111 (70-110)
[2020-03-16] VITALS (7 sets, daily range): BP systolic 128–159; BP diastolic 67–84; PULSE 50–78; RESP 16–19; TEMP 36.5–37.7; O2SAT 91–100; BMI 26.2
--- NOTE | 2020-03-16 03:14 | PC.NURSE ---
PT. PLEASANTLY CONFUSED THIS SHIFT. AT BEGINNING OF SHIFT PT. ABLE TO STATE NAME AND ; UNABLE TO STATE PLACE OR YEAR. PT. EASILY AWAKEN PER NAME. PT. ABLE TO SAFELY SWALLOW HS MEDS. L HAND REMAINS RIGID WITH LIMITED ROM; R HAND MILD WEAKNESS NOTED; PT. ABLE TO FOLLOW SIMPLE COMMANDS. SAFETY MEASURES APPLIED.
[2020-03-16 06:39] LABS: POC Glucose,Bedside 89 (70-110)
--- NOTE | 2020-03-16 08:20 | HMH.ACPN2 ---
Internal Medicine - PN: Subj *Date: 03/16/20 *Time: 08:20 Interval history: Patient sleeps through exam this morning. She does not appear to be in any distress. Exam Vital signs and Labs for Last 24 Hours: Temp Pulse Resp BP Pulse Ox 97.7 F 52 L 18 159/84 H 91 L 03/16/20 04:00 03/16/20 04:00 03/16/20 04:00 03/16/20 04:00 03/16/20 04:00 Laboratory Results - last 24 hr 03/14/20 23:27: Urine Color Yellow, Urine Appearance Clear, Urine pH 8.0, Ur Specific [place] 1.015, Urine Protein 1+, Urine Glucose (UA) Negative, Urine Ketones Negative, Urine Blood 2+, Urine Nitrate Negative, Urine Bilirubin Negative, Urine Urobilinogen 0.2, Ur Leukocyte Esterase 2+ A, Urine RBC 3-5, Urine WBC 10-20, Ur Squamous Epith Cells 5-10, Urine Bacteria 4+ 03/15/20 12:18: POC Glucose 123 H 03/15/20 16:13: POC Glucose 100 03/15/20 20:15: POC Glucose 111 H 03/16/20 06:30: POC Glucose 89 I & O for Last 24 hours: Intake & Output 03/13/20 03/14/20 03/15/20 03/16/20 11:59 11:59 11:59 11:59 Intake Total 2567 / 2567 2186 / 2186 Output Total 350 / 350 1025 / 1025 Balance 2217 / 2217 1161 / 1161 Weight 163 lb 8 oz 167 lb Microbiology Reports for the Last 24 Hours: Microbiology 03/14/20 23:27 Urine,Clean Catch Urine Culture - Preliminary Gram Negative Rods - Constitutional Comments: Sleeping - *Routine Respiratory Exam Present: CTA bilaterally - *Routine Cardiovascular Exam Present: RRR - *Routine Abdominal Exam Present: soft, normoactive bowel sounds. Absent: tenderness - *Routine Extremities Exam Absent: cyanosis, clubbing, edema - *Routine Neurological Exam Present: altered mental status Assessment and Plan (1) UTI (urinary tract infection) Current visit: Yes Status: Acute Qualifiers: Urinary tract infection type: site unspecified Hematuria presence: without hematuria Qualified Code(s): N39.0 - Urinary tract infection, site not specified Category: Medical Code(s): N39.0 - Urinary tract infection, site not specified (2) JACKLYN (acute kidney injury) Current visit: Yes Status: Acute Category: Medical Code(s): N17.9 - Acute kidney failure, unspecified (3) Sinus bradycardia Current visit: Yes Status: Acute Category: Medical Code(s): R00.1 - Bradycardia, unspecified (4) Altered mental status Current visit: Yes Status: Acute Qualifiers: Altered mental status type: somnolence Qualified Code(s): R40.0 - Somnolence Category: Medical Code(s): R41.82 - Altered mental status, unspecified (5) Dehydration Current visit: Yes Status: Acute Category: Medical Code(s): E86.0 - Dehydration (6) History of CVA (cerebrovascular accident) Current visit: Yes Status: Chronic Category: Medical Code(s): Z86.73 - Personal history of transient ischemic attack (TIA), and cerebral infarction without residual deficits (7) Left hemiparesis Current visit: Yes Status: Chronic Category: Medical Code(s): G81.94 - Hemiplegia, unspecified affecting left nondominant side (8) Cardiomyopathy Current visit: No Status: Chronic Qualifiers: Cardiomyopathy type: ischemic Qualified Code(s): I25.5 - Ischemic cardiomyopathy Category: Medical Code(s): I42.9 - Cardiomyopathy, unspecified (9) CAD (coronary artery disease) Current visit: No Status: Chronic Qualifiers: Coronary Disease-Associated Artery/Lesion type: unspecified vessel or lesion type [place] vs. transplanted heart: [place] heart Associated angina: with unstable angina Qualified Code(s): I25.110 - Atherosclerotic heart disease of [place] coronary artery with unstable angina pectoris Category: Medical Code(s): I25.10 - Atherosclerotic heart disease of [place] coronary artery without angina pectoris (10) CHF (congestive heart failure) Current visit: No Status: Chronic Qualifiers: Heart failure type: unspecified Heart
[2020-03-16 09:19] LABS: Basophils # 0.1 K/mm3 (0-0.2); Basophils % 0.5 % (0.1-2.0); Eosinophils # 0.4 K/mm3 (0.0-0.4); Eosinophils % 3.5 % (0.1-12.0); Hematocrit 34.9 % (37.0-47.0); Hemoglobin 11.1 g/dL (12.2-16.2); Lymphocytes # 1.4 K/mm3 (0.7-4.5); Lymphocytes % 12.3 % (10-50); Mean Corpuscular HGB Conc 31.8 g/dL (31.8-35.4); Mean Corpuscular Hemoglobin 31.4 pg (27.0-31.2); Mean Corpuscular Volume 98.7 fl (81-99); Mean Platelet Volume 8.1 fl (7.4-10.4); Monocytes # 0.6 K/mm3 (0.1-1.0); Monocytes % 5.3 % (1.7-9.3); Neutrophils # 8.6 K/mm3 (1.8-7.8); Neutrophils % 78.4 % (37.0-80.0); Platelet Count 150 K/mm3 (142-424); Red Blood Count 3.53 M/mm3 (4.20-5.40); Red Cell Distribution Width 15.1 % (11.5-17.5)
[2020-03-16 09:28] LABS: Chloride 117 mmol/L (98-107)
[2020-03-16 09:29] LABS: Potassium 3.4 mmoL/L (3.5-5.1)
[2020-03-16 09:31] LABS: Alanine Aminotransferase 72 U/L (12-78); Alkaline Phosphatase 159 U/L (38-126); Aspartate Amino Transferase 82 U/L (14-36); Bilirubin,Total 0.4 mg/dl (0.2-1.3); Blood Urea Nitrogen 37 mg/dl (7-17); Carbon Dioxide 26 mmol/L (22.0-30.0); Creatinine Clearance Estimated 33 mL/min (50-200); Estimated Glomerular Filt Rate 29 ml/min (>60); GFR (African American) 35 ML/MIN (>60)
[2020-03-16 09:32] LABS: Albumin/Globulin Ratio 0.9 (1.1-1.8); Globulin 3.5 g/dL (1.3-3.2); Glucose 103 mg/dl (74-100); Total Protein,Serum 6.5 g/dl (6.3-8.2)
[2020-03-16 09:33] LABS: Sodium 151 mmol/L (136-145)
[2020-03-16 16:28] LABS: POC Glucose,Bedside 102 (70-110)
--- NOTE | 2020-03-16 18:52 | PC.NURSE ---
ALERT AND ORIENTED TO SELF, CONFUSED. NO CHANGES FROM PREVIOUS ASSESSMENT. PT SLEPT MOST OF SHIFT. NO COMPLAINTS VOICED. VSS. NO DISTRESS NOTED. WILL CONTINUE TO MONITOR
--- NOTE | 2020-03-16 19:10 | PC.NURSE ---
report given to missy
[2020-03-16 20:05] LABS: POC Glucose,Bedside 128 (70-110)
[2020-03-17] VITALS (10 sets, daily range): BP systolic 131–159; BP diastolic 66–98; PULSE 50–68; RESP 16–18; TEMP 36.6–37.1; O2SAT 91–99; BMI 26.6
--- NOTE | 2020-03-17 00:25 | PC.NURSE ---
Pt's room air sat at rest= 88%
--- NOTE | 2020-03-17 03:28 | PC.NURSE ---
Addendum entered by Sophia Reyes RN 03/17/20 04:52: O2 SAT 90-91% ON RA Original Note: PT. ABLE TO STATE NAME, , YEAR AT BEGINNING OF SHIFT; PT. BECAME INCREASINGLY CONFUSED DURING SHIFT, ALERT TO SELF. LUE WEAKNESS UNCHANGED FROM LAST NIGHT. FC DRAINING CLEAR YELLOW URINE.
[2020-03-17 05:37] LABS: POC Glucose,Bedside 91 (70-110)
[2020-03-17 11:33] LABS: POC Glucose,Bedside 105 (70-110)
--- NOTE | 2020-03-17 13:51 | HMH.ACPN2 ---
Internal Medicine - PN: Subj *Date: 03/17/20 *Time: 13:51 Interval history: Likely she is much improved. She is much more alert and talkative. She asks questions. She interacts. Elevation in sodium is noted. Exam Vital signs and Labs for Last 24 Hours: Temp Pulse Resp BP Pulse Ox 98.3 F 68 18 139/85 95 03/17/20 11:41 03/17/20 11:41 03/17/20 11:41 03/17/20 11:41 03/17/20 11:41 Laboratory Results - last 24 hr 03/16/20 09:10: Anion Gap 8.0 03/16/20 16:20: POC Glucose 102 03/16/20 19:48: POC Glucose 128 H 03/17/20 05:29: POC Glucose 91 03/17/20 11:26: POC Glucose 105 Laboratory Tests 03/14/20 03/15/20 03/16/20 23:15 05:30 09:10 Sodium 144 148 H 151 H* Potassium 3.9 4.0 3.4 L BUN 60 H 59 H 37 H D Creatinine 3.30 H 2.80 H 1.70 H D I & O for Last 24 hours: Intake & Output 03/15/20 03/16/20 03/17/20 03/18/20 11:59 11:59 11:59 11:59 Intake Total 2567 / 2567 2306 / 2306 1601 / 1601 360 / 360 Output Total 350 / 350 1025 / 1025 600 / 600 1050 / 1050 Balance 2217 / 2217 1281 / 1281 1001 / 1001 -690 / -690 Weight 163 lb 8 oz 167 lb 0.002 oz 170 lb 3 oz Microbiology Reports for the Last 24 Hours: Microbiology 03/14/20 23:27 Urine,Clean Catch Urine Culture - Final Proteus mirabilis 03/14/20 23:15 Blood Blood Culture - Preliminary NO GROWTH AFTER 48 HOURS 03/14/20 23:15 Blood Blood Culture - Preliminary NO GROWTH AFTER 48 HOURS - Constitutional no acute distress - *Routine HEENT Exam Head: Present: normocephalic Eye: Present: PERRL ENT: Present: mucous membranes moist - *Routine Respiratory Exam Present: CTA bilaterally - *Routine Cardiovascular Exam Present: RRR - *Routine Abdominal Exam Present: soft. Absent: tenderness - *Routine Extremities Exam Absent: edema - *Routine Neurological Exam Present: alert, normal speech Assessment and Plan (1) UTI (urinary tract infection) Current visit: Yes Status: Acute Qualifiers: Urinary tract infection type: site unspecified Hematuria presence: without hematuria Qualified Code(s): N39.0 - Urinary tract infection, site not specified Category: Medical Code(s): N39.0 - Urinary tract infection, site not specified (2) JACKLYN (acute kidney injury) Current visit: Yes Status: Acute Category: Medical Code(s): N17.9 - Acute kidney failure, unspecified (3) Sinus bradycardia Current visit: Yes Status: Acute Category: Medical Code(s): R00.1 - Bradycardia, unspecified (4) Altered mental status Current visit: Yes Status: Acute Qualifiers: Altered mental status type: somnolence Qualified Code(s): R40.0 - Somnolence Category: Medical Code(s): R41.82 - Altered mental status, unspecified (5) Dehydration Current visit: Yes Status: Acute Category: Medical Code(s): E86.0 - Dehydration (6) History of CVA (cerebrovascular accident) Current visit: Yes Status: Chronic Category: Medical Code(s): Z86.73 - Personal history of transient ischemic attack (TIA), and cerebral infarction without residual deficits (7) Left hemiparesis Current visit: Yes Status: Chronic Category: Medical Code(s): G81.94 - Hemiplegia, unspecified affecting left nondominant side (8) Cardiomyopathy Current visit: No Status: Chronic Qualifiers: Cardiomyopathy type: ischemic Qualified Code(s): I25.5 - Ischemic cardiomyopathy Category: Medical Code(s): I42.9 - Cardiomyopathy, unspecified (9) CAD (coronary artery disease) Current visit: No Status: Chronic Qualifiers: Coronary Disease-Associated Artery/Lesion type: unspecified vessel or lesion type [place] vs. transplanted heart: [place] heart Associated angina: with unstable angina Qualified Code(s): I25.110 - Atherosclerotic heart disease of [place] coronary artery with unstable angina pectoris Category:
[2020-03-17 15:38] LABS: Basophils % 0.3 % (0.1-2.0); Eosinophils # 0.1 K/mm3 (0.0-0.4); Hematocrit 37.4 % (37.0-47.0); Hemoglobin 12.2 g/dL (12.2-16.2); Lymphocytes % 8.3 % (10-50); Mean Corpuscular HGB Conc 32.5 g/dL (31.8-35.4); Mean Corpuscular Hemoglobin 31.6 pg (27.0-31.2); Mean Corpuscular Volume 97.3 fl (81-99); Mean Platelet Volume 8.1 fl (7.4-10.4); Monocytes # 0.5 K/mm3 (0.1-1.0); Neutrophils # 10.6 K/mm3 (1.8-7.8); Neutrophils % 86.5 % (37.0-80.0); Platelet Count 179 K/mm3 (142-424); Red Blood Count 3.84 M/mm3 (4.20-5.40); Red Cell Distribution Width 15.2 % (11.5-17.5); White Blood Count 12.3 K/mm3 (4.8-10.8)
[2020-03-17 15:39] LABS: Chloride 118 mmol/L (98-107); MANUAL DIFFERENTIAL MANUAL DIFFERENTIAL (MANUAL DIFF)
[2020-03-17 15:42] LABS: Blood Urea Nitrogen 21 mg/dl (7-17); Creatinine Clearance Estimated 44 mL/min (50-200); Estimated Glomerular Filt Rate 40 ml/min (>60); GFR (African American) 48 ML/MIN (>60)
[2020-03-17 15:43] LABS: Calcium 8.8 mg/dl (8.4-10.2); Carbon Dioxide 21 mmol/L (22.0-30.0); Glucose 140 mg/dl (74-100)
[2020-03-17 15:47] LABS: Sodium 152 mmol/L (136-145)
[2020-03-17 16:03] LABS: Lymphocytes % 15 % (10-50); Neutrophils % 85 % (42-76); Platelet Estimate Normal; RBC Morphology Normal; Total Cells Counted 100
[2020-03-17 16:17] LABS: POC Glucose,Bedside 130 (70-110)
--- NOTE | 2020-03-17 17:45 | PC.NURSE ---
DR. WOODARD PAGED REGARDING CRITICAL SODIUM OF 152. YAMILET RETURNED CALL AT 415. NO NEW ORDERS AT THIS TIME. WILL CONTINUE TO MONITOR
[2020-03-17 20:21] LABS: POC Glucose,Bedside 133 (70-110)
[2020-03-18] VITALS: BP 146/81; PULSE 54; PULSE 60; RESP 14; TEMP 36.9; O2SAT 97
--- NOTE | 2020-03-18 02:29 | PC.NURSE ---
PT A&O TO NAME AND BIRTHDAY BUT CANNOT TELL ME WHERE SHE IS AT BEGINNING OF SHIFT. STATES THAT SHE IS IN [place]. PT TOLERATING .5LNC T/O SHIFT. PT HAS NOT C/O ANY PAIN/NA/VO T/O SHIFT. PT HAS RESTED IN BED WITH EYES CLOSED T/O MAJORITY OF SHIFT. F/C PRESENT DRAINING BRIGHT YELLOW URINE. PT HAS SEEMED TO GET PROGRESSIVELY MORE CONFUSED T/O THE NIGHT, WANTING TO GET OUT OF THE BED AND GO HOME. BED SAFETY APPLIED. NO OTHER C/O THUS FAR, VSS WILL CONTINUE TO MONITOR.
[2020-03-18 03:50] VITALS: BP 146/77; PULSE 57; RESP 16; TEMP 36.9; O2SAT 95
[2020-03-18 04:00] VITALS: PULSE 50
[2020-03-18 05:00] VITALS: BMI 26.2
[2020-03-18 05:22] LABS: POC Glucose,Bedside 87 (70-110)
[2020-03-18 08:00] VITALS: BP 141/67; PULSE 63; PULSE 70; RESP 17; TEMP 36.6; O2SAT 95; O2SAT 97
--- NOTE | 2020-03-18 09:40 | HMH.ACPN2 ---
Internal Medicine - PN: Subj *Date: 03/18/20 *Time: 09:40 Interval history: The patient is doing much better. She is much more alert and conversant. She had a good day yesterday. She will be ready for discharge tomorrow. Exam Vital signs and Labs for Last 24 Hours: Temp Pulse Resp BP Pulse Ox 97.8 F 63 17 141/67 H 97 03/18/20 08:00 03/18/20 08:00 03/18/20 08:00 03/18/20 08:00 03/18/20 08:00 Laboratory Results - last 24 hr 03/17/20 11:26: POC Glucose 105 03/17/20 14:55: WBC 12.3 H, RBC 3.84 L, Hgb 12.2, Hct 37.4, MCV 97.3, MCH 31.6 H, MCHC 32.5, RDW 15.2, Plt Count 179, MPV 8.1, Neut % (Auto) 86.5 H, Lymph % (Auto) 8.3 L, [place] % (Auto) 4.0, Eos % (Auto) 1.0, Baso % (Auto) 0.3, Neut # (Auto) 10.6 H, Lymph # (Auto) 1.0, [place] # (Auto) 0.5, Eos # (Auto) 0.1, Baso # (Auto) 0.0, Total Counted 100, Neutrophils % (Manual) 85 H, Lymphocytes % (Manual) 15, Platelet Estimate Normal, RBC Morphology Normal 03/17/20 14:55: Sodium 152 H*, Potassium 4.0, Chloride 118 H, Carbon Dioxide 21 L, Anion Gap 17.0 H, BUN 21 H D, Creatinine 1.30 H D, Estimated Creat Clear 44, Estimated GFR 40 L, Est GFR ( Amer) 48 L D, Glucose 140 H, Calcium 8.8 03/17/20 16:10: POC Glucose 130 H 03/17/20 20:08: POC Glucose 133 H 03/18/20 05:14: POC Glucose 87 I & O for Last 24 hours: Intake & Output 03/15/20 03/16/20 03/17/20 03/18/20 11:59 11:59 11:59 11:59 Intake Total 2567 / 2567 2306 / 2306 1601 / 1601 2579 / 2579 Output Total 350 / 350 1025 / 1025 600 / 600 2150 / 2150 Balance 2217 / 2217 1281 / 1281 1001 / 1001 429 / 429 Weight 163 lb 8 oz 167 lb 0.002 oz 170 lb 3 oz 167 lb 2 oz Microbiology Reports for the Last 24 Hours: Microbiology 03/14/20 23:27 Urine,Clean Catch Urine Culture - Final Proteus mirabilis - Constitutional no acute distress - *Routine HEENT Exam Head: Present: normocephalic Eye: Present: PERRL ENT: Present: mucous membranes moist - *Routine Respiratory Exam Present: CTA bilaterally - *Routine Cardiovascular Exam Present: RRR - *Routine Abdominal Exam Present: soft. Absent: tenderness - *Routine Extremities Exam Absent: edema - *Routine Neurological Exam Present: alert, motor deficit (Left hemiparesis) Assessment and Plan (1) UTI (urinary tract infection) Current visit: Yes Status: Acute Qualifiers: Urinary tract infection type: site unspecified Hematuria presence: without hematuria Qualified Code(s): N39.0 - Urinary tract infection, site not specified Category: Medical Code(s): N39.0 - Urinary tract infection, site not specified (2) JACKLYN (acute kidney injury) Current visit: Yes Status: Acute Category: Medical Code(s): N17.9 - Acute kidney failure, unspecified (3) Sinus bradycardia Current visit: Yes Status: Acute Category: Medical Code(s): R00.1 - Bradycardia, unspecified (4) Altered mental status Current visit: Yes Status: Acute Qualifiers: Altered mental status type: somnolence Qualified Code(s): R40.0 - Somnolence Category: Medical Code(s): R41.82 - Altered mental status, unspecified (5) Dehydration Current visit: Yes Status: Acute Category: Medical Code(s): E86.0 - Dehydration (6) History of CVA (cerebrovascular accident) Current visit: Yes Status: Chronic Category: Medical Code(s): Z86.73 - Personal history of transient ischemic attack (TIA), and cerebral infarction without residual deficits (7) Left hemiparesis Current visit: Yes Status: Chronic Category: Medical Code(s): G81.94 - Hemiplegia, unspecified affecting left nondominant side (8) Cardiomyopathy Current visit: No Status: Chronic Qualifiers: Cardiomyopathy type: ischemic Qualified Code(s): I25.5 - Ischemic cardiomyopathy Category: Medical Code(s): I42.9 - Cardiomyopathy, unspecified (9) CAD (coronary artery disease) Current visit: No Status: Chronic Qualifiers: [place]
[2020-03-18 11:34] LABS: POC Glucose,Bedside 108 (70-110)
[2020-03-18 16:00] VITALS: BP 135/58; PULSE 60; RESP 18; TEMP 36.7; O2SAT 96
[2020-03-18 16:08] LABS: POC Glucose,Bedside 97 (70-110)
--- NOTE | 2020-03-18 18:43 | PC.NURSE ---
ALERT AND ORIENTED X4. INTERMITTENT EPISODES OF BRIEF CONFUSION. PT REFUSED TO GET UP TO CHAIR. PT TURNED Q2. NO COMPLAINTS VOICED. LUNGS CTA T/O. ABDOMEN IS SOFT AND NON-TENDER WITH ACTIVE BS IN ALL QUADS. PT HAS HAD 2 SMALL BM THIS SHIFT. FC IS SECURE, PATENT, AND DRAINING CLEAR YELLOW URINE WITHOUT PROBLEM, CATHETER CARE COMPLETED. VSS. NO DISTRESS NOTED. SAFETY MEASURES IN PLACE, WILL CONTINUE TO MONITOR
[2020-03-18 20:00] VITALS: BP 122/74; PULSE 60; RESP 18; TEMP 36.9; O2SAT 97
[2020-03-18 21:23] LABS: POC Glucose,Bedside 99 (70-110)
--- NOTE | 2020-03-19 03:51 | PC.NURSE ---
Alert and oriented to person and place. Unable to state year/month. Pt rested well this shift with eyes closed with no complaints. Denies pain when asked. PERRLA. Unable to spot cleaner with left hand due to paralysis, right hand spot cleaner noted strong. Left leg noted with paralysis as well, hx stroke. Q2H turn this shift per staff. Bilateral breath sounds noted diminished t/o upon auscultation. Tolerated 0.5 lnc well this shift. O2 sats 97% with 0.5 liters. Will attempt to wean to RA this am. RR noted even and unlabored. Adequate urine output noted per fc. Urine noted cloudy and bright yellow in color. Fc site noted C/D/I. Remains incontinent of bowel, brief in place. No edema noted. Teds on ble. VSS. Remains safe. Call light within reach. Will continue to monitor.
[2020-03-19 04:00] VITALS: BP 151/54; PULSE 54; RESP 14; TEMP 36.6; O2SAT 96
[2020-03-19 04:55] VITALS: O2SAT 93
--- NOTE | 2020-03-19 04:57 | PC.NURSE ---
Pt on room air this am, O2 sats 93% on RA. Tolerating well. O2 on standby.
[2020-03-19 05:00] VITALS: BMI 25.2
[2020-03-19 06:12] LABS: POC Glucose,Bedside 104 (70-110)
[2020-03-19 07:05] LABS: Chloride 118 mmol/L (98-107)
[2020-03-19 07:06] LABS: Sodium 149 mmol/L (136-145)
[2020-03-19 07:08] LABS: Blood Urea Nitrogen 18 mg/dl (7-17); Estimated Glomerular Filt Rate 44 ml/min (>60); GFR (African American) 53 ML/MIN (>60)
[2020-03-19 07:09] LABS: Anion Gap 13.7 mEq/L (5-15); Calcium 8.4 mg/dl (8.4-10.2); Carbon Dioxide 20 mmol/L (22.0-30.0); Glucose 122 mg/dl (74-100)
[2020-03-19 07:48] VITALS: BMI 26.4
[2020-03-19 07:52] LABS: Creatinine Clearance Estimated 47 mL/min (50-200)
[2020-03-19 07:55] LABS: Potassium 2.7 mmoL/L (3.5-5.1)
[2020-03-19 08:00] VITALS: BP 152/81; PULSE 59; RESP 18; TEMP 36.6; O2SAT 95
--- NOTE | 2020-03-19 08:14 | HMH.ACPN2 ---
Internal Medicine - PN: Subj *Date: 03/19/20 *Time: 08:14 Interval history: Patient states she is doing well. She denies chest pain and shortness of breath. States her rear end hurts. She knows she is in [facility]. She continues with a Lynne catheter. Bowels are moving. Electrolytes show low potassium today of 2.7. BUN is 18 with a creatinine of 1.2 which is an improvement. Exam Vital signs and Labs for Last 24 Hours: Temp Pulse Resp BP Pulse Ox 97.8 F 54 L 14 151/54 H 93 L 03/19/20 04:00 03/19/20 04:00 03/19/20 04:00 03/19/20 04:00 03/19/20 04:55 Laboratory Results - last 24 hr 03/18/20 11:27: POC Glucose 108 03/18/20 16:02: POC Glucose 97 03/18/20 21:03: POC Glucose 99 03/19/20 05:49: POC Glucose 104 03/19/20 06:35: Sodium 149 H, Potassium 2.7 L* D, Chloride 118 H, Carbon Dioxide 20 L, Anion Gap 13.7, BUN 18 H, Creatinine 1.20 H, Estimated Creat Clear 47, Estimated GFR 44 L, Est GFR ( Amer) 53 L, Glucose 122 H, Calcium 8.4 I & O for Last 24 hours: Intake & Output 03/16/20 03/17/20 03/18/20 03/19/20 11:59 11:59 11:59 11:59 Intake Total 2306 / 2306 1601 / 1601 2579 / 2579 130 / 130 Output Total 1025 / 1025 600 / 600 2750 / 2750 990 / 990 Balance 1281 / 1281 1001 / 1001 -171 / -171 -860 / -860 Weight 167 lb 0.002 oz 170 lb 3 oz 167 lb 2 oz 168 lb 3.403 oz - Constitutional no acute distress Comments: Patient is feeding herself and seems to be hungry. Assist with assessment. - *Routine Respiratory Exam Present: other (Few bibasilar crackles) - *Routine Cardiovascular Exam Present: RRR - *Routine Abdominal Exam Present: soft, normoactive bowel sounds, obese. Absent: tenderness - *Routine Extremities Exam Present: edema (Trace). Absent: calf tenderness - *Routine Neurological Exam Present: alert Is oriented to most questions. Assessment and Plan (1) UTI (urinary tract infection) Current visit: Yes Status: Acute Qualifiers: Urinary tract infection type: site unspecified Hematuria presence: without hematuria Qualified Code(s): N39.0 - Urinary tract infection, site not specified Category: Medical Code(s): N39.0 - Urinary tract infection, site not specified (2) JACKLYN (acute kidney injury) Current visit: Yes Status: Acute Category: Medical Code(s): N17.9 - Acute kidney failure, unspecified (3) Sinus bradycardia Current visit: Yes Status: Acute Category: Medical Code(s): R00.1 - Bradycardia, unspecified (4) Altered mental status Current visit: Yes Status: Acute Qualifiers: Altered mental status type: somnolence Qualified Code(s): R40.0 - Somnolence Category: Medical Code(s): R41.82 - Altered mental status, unspecified (5) Dehydration Current visit: Yes Status: Acute Category: Medical Code(s): E86.0 - Dehydration (6) History of CVA (cerebrovascular accident) Current visit: Yes Status: Chronic Category: Medical Code(s): Z86.73 - Personal history of transient ischemic attack (TIA), and cerebral infarction without residual deficits (7) Left hemiparesis Current visit: Yes Status: Chronic Category: Medical Code(s): G81.94 - Hemiplegia, unspecified affecting left nondominant side (8) Cardiomyopathy Current visit: No Status: Chronic Qualifiers: Cardiomyopathy type: ischemic Qualified Code(s): I25.5 - Ischemic cardiomyopathy Category: Medical Code(s): I42.9 - Cardiomyopathy, unspecified (9) CAD (coronary artery disease) Current visit: No Status: Chronic Qualifiers: Coronary Disease-Associated Artery/Lesion type: unspecified vessel or lesion type [place] vs. transplanted heart: [place] heart Associated angina: with unstable angina Qualified Code(s): I25.110 - Atherosclerotic heart disease of [place] coronary artery with unstable angina pectoris Category: Medical Code(s): I25.10 - Atherosclerotic heart disease of [place] coronary artery without a
[2020-03-19 08:33] LABS: Basophils # 0.1 K/mm3 (0-0.2); Basophils % 0.7 % (0.1-2.0); Eosinophils # 0.3 K/mm3 (0.0-0.4); Eosinophils % 2.8 % (0.1-12.0); Hematocrit 33.6 % (37.0-47.0); Hemoglobin 11.7 g/dL (12.2-16.2); Lymphocytes # 1.4 K/mm3 (0.7-4.5); Lymphocytes % 12.6 % (10-50); Mean Corpuscular HGB Conc 34.7 g/dL (31.8-35.4); Mean Corpuscular Hemoglobin 31.6 pg (27.0-31.2); Mean Corpuscular Volume 91.3 fl (81-99); Mean Platelet Volume 8.5 fl (7.4-10.4); Monocytes # 0.7 K/mm3 (0.1-1.0); Monocytes % 6.3 % (1.7-9.3); Neutrophils % 77.7 % (37.0-80.0); Platelet Count 191 K/mm3 (142-424); Red Blood Count 3.68 M/mm3 (4.20-5.40); Red Cell Distribution Width 15.3 % (11.5-17.5); White Blood Count 11.5 K/mm3 (4.8-10.8)
--- NOTE | 2020-03-19 08:55 | HMH.DCSUM ---
General - General Admission date:: 03/15/20 Discharge date: 03/19/20 HPI HPI: Ms Contreras is a 79yo female who was brought in by ambulance from [facility]. She was unable to give any history on her own. custodial transfer form states that a [employer] found her unresponsive but then she became responsive to her name and attempted to follow commands. Reportedly she had frothy sputum and was suctioned and had wheezing, chest noted to be full . Blood pressure and pulse were reportedly decreased but blood pressure noted on transfer form was 108/50. Heart rate noted to be 44. O2 saturation low at 84. She was started on 2 L of O2 per nasal cannula at the [facility]. Fingerstick blood sugar was 243 at the [facility]. Review of prior records indicated the patient has a prior CVA with a left hemiparesis. She was noted to be wheelchair-bound. (above from ER) Upon work-up in the emergency room revealed an elevated white count. She was in renal failure and her troponins were elevated. She was felt to have a urinary tract infection. She was admitted and started on IV fluids as well as IV antibiotics. Her urine and blood cultures were pending. Hospital Course Hospital Course: On admission patient was started on ertapenem and along with IV fluids. She was felt to have a urinary tract infection. Eventually culture revealed Proteus mirabilis sensitive to the antibiotic which she was on. Blood cultures remained negative. She gradually became more alert and talkative. Renal function did improve. Blood sugars remain stable and she continued with sliding scale. On 03/19/2020 patient remained alert. She was eating well. Bowels had moved. Potassium was noted to be 2.7 and this was repeated. She did have 40 mEq replacement. She was felt to be stable to be transferred back to [facility]. She was to continue with her current diet and activity level as prior to admission. Medications as per medication reconciliation sheet. She will need to remain on antibiotic for her UTI. Objective Vital signs: Temp Pulse Resp BP Pulse Ox 97.8 F 54 L 14 151/54 H 93 L 03/19/20 04:00 03/19/20 04:00 03/19/20 04:00 03/19/20 04:00 03/19/20 04:55 Narrative: Exam Vital signs and Labs for Last 24 Hours: Temp Pulse Resp BP Pulse Ox 97.8 F 54 L 14 151/54 H 93 L 03/19/20 04:00 03/19/20 04:00 03/19/20 04:00 03/19/20 04:00 03/19/20 04:55 Laboratory Results - last 24 hr 03/18/20 11:27: POC Glucose 108 03/18/20 16:02: POC Glucose 97 03/18/20 21:03: POC Glucose 99 03/19/20 05:49: POC Glucose 104 03/19/20 06:35: Sodium 149 H, Potassium 2.7 L* D, Chloride 118 H, Carbon Dioxide 20 L, Anion Gap 13.7, BUN 18 H, Creatinine 1.20 H, Estimated Creat Clear 47, Estimated GFR 44 L, Est GFR ( Amer) 53 L, Glucose 122 H, Calcium 8.4 I & O for Last 24 hours: Intake & Output 03/16/20 03/17/20 03/18/20 03/19/20 11:59 11:59 11:59 11:59 Intake Total 2306 / 2306 1601 / 1601 2579 / 2579 130 / 130 Output Total 1025 / 1025 600 / 600 2750 / 2750 990 / 990 Balance 1281 / 1281 1001 / 1001 -171 / -171 -860 / -860 Weight 167 lb 0.002 oz 170 lb 3 oz 167 lb 2 oz 168 lb 3.403 oz - Constitutional no acute distress Comments: Patient is feeding herself and seems to be hungry. Assist with assessment. - *Routine Respiratory Exam Present: other (Few bibasilar crackles) - *Routine Cardiovascular Exam Present: RRR - *Routine Abdominal Exam Present: soft, normoactive bowel sounds, obese. Absent: tenderness - *Routine Extremities Exam Present: edema (Trace). Absent: calf tenderness - *Routine Neurological Exam Present: alert Is oriented to most questions. Results Completed studies during hospitalization [Text1]: 03/14/20 CXR IMPRESSION: No acute findings. 02/2620 CT head IMPRESSION: No acute intracranial finding Labs on day of discharge: Labs from last
[2020-03-19 09:25] LABS: Anion Gap 18.1 mEq/L (5-15); Blood Urea Nitrogen 19 mg/dl (7-17); Calcium 8.6 mg/dl (8.4-10.2); Carbon Dioxide 23 mmol/L (22.0-30.0); Chloride 113 mmol/L (98-107); Creatinine Clearance Estimated 44 mL/min (50-200); Estimated Glomerular Filt Rate 40 ml/min (>60); GFR (African American) 48 ML/MIN (>60); Glucose 204 mg/dl (74-100); Potassium 3.1 mmoL/L (3.5-5.1)
[2020-03-19 09:33] LABS: Sodium 151 mmol/L (136-145)
[2020-03-19 14:01] LABS: Covid-19 Nasal PCR Sendout UK NOT DETECTED
[2020-03-28 09:51] LABS: POC Glucose,Bedside 208 (70-110)
== END 2020-03-19 15:12 | DRG 689 ==
LOC: ER 03-15 00:33 → 2ND 03-15 01:13
PROVIDERS: Nurse Practitioner Family; Physician Assistant; Admitting Provider Family Medicine; Emergency Provider Emergency Medicine; PCP Family Medicine; Visit Provider Family Medicine
DX: N39.0 Urinary tract infection, site not specified (principal); I50.33 Acute on chronic diastolic (congestive) heart failure; I69.354 Hemiplegia and hemiparesis following cerebral infarction affecting left non-dominant side; N17.9 Acute kidney failure, unspecified; E86.0 Dehydration; I48.91 Unspecified atrial fibrillation; I11.0 Hypertensive heart disease with heart failure; I25.5 Ischemic cardiomyopathy; Z95.5 Presence of coronary angioplasty implant and graft; Z99.3 Dependence on wheelchair; B96.4 Proteus (mirabilis) (morganii) as the cause of diseases classified elsewhere; Z79.01 Long term (current) use of anticoagulants; I25.10 Atherosclerotic heart disease of native coronary artery without angina pectoris; Z86.711 Personal history of pulmonary embolism; Z86.718 Personal history of other venous thrombosis and embolism; I70.203 Unspecified atherosclerosis of native arteries of extremities, bilateral legs; E13.9 Other specified diabetes mellitus without complications
CPT/HCPCS: 36415; 70450; 71045; 80048; 80053; 81001; 82962; 83605; 84484; 85007; 85025; 86328; 87040; 87086; 87088; 87186; 93005; 94761; 96365; 96367; 99285; J1335; U0003

== ENCOUNTER 2020-04-06 07:22 | Inpatient (IN) | payer MEDICARE, MEDICAID, SELFPAY ==
[2020-04-06] VITALS (11 sets, daily range): BP systolic 115–167; BP diastolic 53–91; PULSE 38–54; RESP 12–16; TEMP 36.2–37.2; O2SAT 89–99; BMI 33.0; BMI 27.3
--- NOTE | 2020-04-06 06:30 | ECG_ITS ---
APPROVED REPORT Exam: Resting ECG HR:57 bpm ECG Measurements Heart Rate 57 AXES CA 192 P 38 QRSd 138 QRS -22 QT 460 T 43 QTc 447 <Conclusion> Sinus bradycardia with premature supraventricular complexes Left ventricular hypertrophy with QRS widening and repolarization abnormality Possible Inferolateral infarct,old Abnormal ECG Electronically signed by : Almas Kelly, 04/06/2020 17:38:53
--- NOTE | 2020-04-06 07:14 | XR_ITS ---
PROCEDURE: XR CHEST PORTABLE CLINICAL HISTORY: lethargic COMPARISON: CR [id number] XR chest portable PICC plac from 11/10/2018 CR XR CHEST PORTABLE from 12/26/2019 CR XR CHEST PORTABLE from 03/14/2020 FINDINGS: This is a poor inspiratory effort. Perihilar region. Cardiac size is normal and there is no pulmonary congestion. There are mild multilevel degenerate changes of the thoracic spine. IMPRESSION: No acute findings. Dictated by: Dr. Alistair Garcia MD 04/06/2020 08:05 Dr. Alistair Garcia MD in [facility] 04/06/2020 08:05
[2020-04-06 07:28] LABS: Microscopic, Urine URINE MICROSCOPIC (MICROSCOPIC)
[2020-04-06 07:30] LABS: Basophils # 0.1 K/mm3 (0-0.2); Basophils % 0.6 % (0.1-2.0); Eosinophils # 0.4 K/mm3 (0.0-0.4); Eosinophils % 3.4 % (0.1-12.0); Hematocrit 43.9 % (37.0-47.0); Hemoglobin 14.5 g/dL (12.2-16.2); Lymphocytes # 1.7 K/mm3 (0.7-4.5); Lymphocytes % 16.9 % (10-50); Mean Corpuscular HGB Conc 32.9 g/dL (31.8-35.4); Mean Corpuscular Hemoglobin 31.6 pg (27.0-31.2); Mean Corpuscular Volume 95.8 fl (81-99); Mean Platelet Volume 8.5 fl (7.4-10.4); Monocytes # 0.5 K/mm3 (0.1-1.0); Monocytes % 4.5 % (1.7-9.3); Neutrophils # 7.6 K/mm3 (1.8-7.8); Neutrophils % 74.7 % (37.0-80.0); Platelet Count 241 K/mm3 (142-424); Red Blood Count 4.59 M/mm3 (4.20-5.40); Red Cell Distribution Width 15.3 % (11.5-17.5); White Blood Count 10.2 K/mm3 (4.8-10.8)
[2020-04-06 07:34] LABS: Appearance,Urine CLEAR (Clear); Bilirubin,Urine Negative (Negative); Blood, Urine 1+ (Negative); Color,Urine YELLOW (Yellow); Glucose,Urine (UA) Negative (Negative); Ketones,Urine Negative (Negative); Leukocyte Esterase,Urine Negative (Negative); Nitrate,Urine Negative (Negative); Protein,Urine Negative (Negative); Urobilinogen,Urine 0.2 EU/dl (0.2)
--- NOTE | 2020-04-06 07:41 | PC.NURSE ---
RT at bedside
[2020-04-06 07:44] LABS: Chloride 96 mmol/L (98-107); Potassium 4.9 mmoL/L (3.5-5.1); Sodium 141 mmol/L (136-145)
[2020-04-06 07:46] LABS: Squamous Epithelial Cell,Urine Occasional #/hpf (0-5); WBC,Urine Occasional #/hpf (0-3)
[2020-04-06 07:46] LABS: Blood Urea Nitrogen 30 mg/dl (7-17); Creatinine Clearance Estimated 28 mL/min (50-200); Estimated Glomerular Filt Rate 19 ml/min (>60); GFR (African American) 23 ML/MIN (>60)
[2020-04-06 07:47] LABS: Alanine Aminotransferase 65 U/L (12-78); Albumin Level 4.1 g/dl (3.5-5.0); Albumin/Globulin Ratio 0.8 (1.1-1.8); Alkaline Phosphatase 202 U/L (38-126); Anion Gap 17.9 mEq/L (5-15); Aspartate Amino Transferase 61 U/L (14-36); Bilirubin,Total 1.1 mg/dl (0.2-1.3); Carbon Dioxide 32 mmol/L (22.0-30.0); Glucose 201 mg/dl (74-100); Lactic Acid 1.4 mmol/L (0.7-2.1); Total Protein,Serum 9.1 g/dl (6.3-8.2)
[2020-04-06 07:48] LABS: Calcium 12.9 mg/dl (8.4-10.2)
--- NOTE | 2020-04-06 07:49 | PC.NURSE ---
Rad at bedside
--- NOTE | 2020-04-06 07:51 | CT_ITS ---
PROCEDURE: CT HEAD/BRAIN WO CON CLINICAL INDICATION: AMS COMPARISON: CT CT HEAD/BRAIN WO CON from 03/14/2020 TECHNIQUE: Axial images obtained. All CT scans at the facility use one or more dose reduction, viz: automated exposure control, ma/kV adjustment per patient size (including targeted exams where dose is matched to indication, i.e. head), or iterative reconstruction technique. FINDINGS: No midline shift, mass effect, intracranial hemorrhage, hydrocephalus, or extra-axial fluid collection is evident. The basilar cisterns are somewhat prominent. The ventricular system is normal for age. The sylvian fissures and cortical sulci are prominent as noted on the recent exam 03/14/2020. There are periventricular hypodensities consistent with chronic ischemic white matter changes. There is a more focal hypodensity right thalamus likely due to old lacunar infarct. The bony calvarium shows evidence of hyperostosis frontalis interna. . No mastoid effusion. No sinus air-fluid level. IMPRESSION: Findings of moderate cortical atrophy and chronic ischemic white matter changes and old right thalamic lacunar infarct all stable and unchanged from the previous exam, no acute intracranial pathology identified Dictated by: Dr. Alistair Garcia MD 04/06/2020 08:26 Dr. Alistair Garcia MD in [facility] 04/06/2020 08:26
[2020-04-06 07:52] LABS: ABG Base Excess 0.5 mmol/L (-2.4-2.3); ABG HCO3 25.9 mmhg (22.0-26.0); ABG Oxygen Saturation 97 % (90-100); ABG PCO2 46.7 mmhg (35.0-45.0); ABG PH 7.36 mmol/L (7.35-7.45); ABG PO2 93.9 mmhg (80-100); ABG TCO2 27.3 mmhg (23-27)
[2020-04-06 07:54] LABS: Allen's Test Patient Unable; Oxygen 2L NC %; Source Left Radial
[2020-04-06 07:59] LABS: Troponin I 0.03 ng/ml (0.00-0.034)
--- NOTE | 2020-04-06 08:19 | CT_ITS ---
PROCEDURE: CT ABDOMEN PELVIS WO CON CLINICAL INDICATION: renal failure COMPARISON: CT CT ABD/PEL W/O from 06/11/2015 TECHNIQUE: Axial images obtained with sagittal and coronal reformats. All CT scans at the facility use one or more dose reduction, viz: automated exposure control, ma/kV adjustment per patient size (including targeted exams where dose is matched to indication, i.e. head), or iterative reconstruction technique. FINDINGS: Lower thorax: There is minimal bilateral basilar atelectasis. There is moderate cardiomegaly and there is prominent coronary artery calcification. There is no pulmonary congestion. ABDOMEN: Liver: No masses or biliary dilatation. Gallbladder: Nondistended. No radio opaque stones. There could be some biliary sludge present as there is a slightly heterogenic appearance to the bile. Pancreas: No masses or peripancreatic fluid collections. Spleen: unremarkable Adrenals: unremarkable Kidneys/ureters: The kidneys are normal in size. There is somewhat of extrarenal pelvis right kidney, there is no obstructive uropathy of either kidney. There are no definite calculi in either ureter. ABDOMEN & PELVIS: Stomach bowel: The stomach and small bowel appear grossly normal. However there is a umbilical hernia containing a couple loops of nondilated small bowel and mesentery. It measures approximately 11.6 by 12.0 by 13.1 cm. This was seen on the previous exam 06/11/2015 and is basically unchanged in size and overall appearance. There is a very large amount of formed stool within the rectum and the fecal impaction cannot be excluded. Peritoneum: No abnormal fluid collections. No obvious inflammatory changes. No free air. Lymph nodes: No enlarged lymph nodes apparent. Vasculature: There is prominent diffuse arthrosclerotic calcification of the abdominal aorta and proximal common iliac arteries bilaterally and the superior mesenteric artery as well. Bones: There are moderate multilevel degenerate changes of the lower thoracic and lumbar spine. PELVIS: Reproductive: Post hysterectomy Bladder: There is a Lynne catheter at the base of the urinary bladder which is decompressed. There is a small amount of air within the bladder. Appendix: Not definitely identified but there are no pericecal inflammatory changes. IMPRESSION: Possible small amount of biliary sludge. There are no definite renal or ureteral calculi and there is no obstructive uropathy of either kidney. Stable umbilical hernia containing nondilated loops of small bowel and probable fecal impaction in the rectum Dictated by: Dr. Alistair Garcia MD 04/06/2020:56 Dr. Alistair Garcia MD in [place] 04/06/2020 08:56
--- NOTE | 2020-04-06 08:30 | PC.NURSE ---
PT RESPONDS TO VERBAL STIMULI. C/O PAIN BUTTOCKS MOANING WITH PAIN. DECUB. NOTED TO COCCYX
--- NOTE | 2020-04-06 08:30 | PC.NURSE ---
Pt is with rad. v/s delayed.
--- NOTE | 2020-04-06 08:34 | PC.NURSE ---
pt returned from rad.
[2020-04-06 08:46] LABS: Coronavirus 19 IgG Antibody Negative (Negative); Coronavirus 19 IgM Antibody Negative (Negative)
--- NOTE | 2020-04-06 09:33 | HMH.EDWEAK ---
ED Disposition Clinical Impression: Metabolic encephalopathy, High anion gap metabolic acidosis Acute on chronic renal failure Qualifiers: Acute renal failure type: with acute tubular necrosis Chronic kidney disease stage: unspecified stage Qualified Code(s): N17.0 - Acute kidney failure with tubular necrosis; N18.9 - Chronic kidney disease, unspecified Anemia Qualifiers: Anemia type: due to chronic kidney disease Chronic kidney disease stage: unspecified stage Qualified Code(s): N18.9 - Chronic kidney disease, unspecified; D63.1 - Anemia in chronic kidney disease Disposition: Admitted As Inpatient Condition on Discharge: Fair Referrals: Emmanuel Barrios [Primary Care Provider] - - Critical Care Critical Care Time: No Attestation: On 04/06/20, the high probability of a clinically significant, sudden or life threatening deterioration of the following system(s) required my full and direct attention, intervention and personal management. The time I documented below is in addition to time spent performing reported procedures but includes the following listed in this critical care notation. Medical Decision Making - Medical Records Medical records reviewed: Yes: I reviewed the patient's medical records. - Neeraj Inquiry Pt receiving controlled substance: No Vital Signs: 04/06/20 06:55 04/06/20 07:14 04/06/20 07:37 Temperature 97.1 F L Temperature Source Rectal Pulse Rate [Left Radial] 54 L 51 L Respiratory Rate 16 Blood Pressure [Right Arm] 167/91 H 121/53 L Blood Pressure Mean [Right Arm] 116 75 Blood Pressure Source [Right Arm] Automatic Cuff Automatic Cuff Blood Pressure Position [Right Arm] Sitting Sitting 02 Sat by Pulse Oximetry 89 L 94 L 98 Oxygen Delivery Method Room Air Nasal Cannula Room Air Oxygen Flow Rate (LPM) 2 04/06/20 08:34 04/06/20 09:00 04/06/20 09:30 Temperature Temperature Source Pulse Rate [Left Radial] 52 L 53 L 51 L Respiratory Rate Blood Pressure [Right Arm] 159/64 H 144/57 H 159/53 H Blood Pressure Mean [Right Arm] 95 86 88 Blood Pressure Source [Right Arm] Automatic Cuff Automatic Cuff Automatic Cuff Blood Pressure Position [Right Arm] Sitting Sitting Sitting 02 Sat by Pulse Oximetry 95 97 95 Oxygen Delivery Method Nasal Cannula Nasal Cannula Nasal Cannula Oxygen Flow Rate (LPM) 3 3 3 - Lab Data Lab Results 04/06/20 06:58: WBC 10.2, RBC 4.59, Hgb 14.5, Hct 43.9, MCV 95.8, MCH 31.6 H, MCHC 32.9, RDW 15.3, Plt Count 241, MPV 8.5, Neut % (Auto) 74.7, Lymph % (Auto) 16.9, [place] % (Auto) 4.5, Eos % (Auto) 3.4, Baso % (Auto) 0.6, Neut # (Auto) 7.6, Lymph # (Auto) 1.7, [place] # (Auto) 0.5, Eos # (Auto) 0.4, Baso # (Auto) 0.1 04/06/20 06:58: Sodium 141, Potassium 4.9, Chloride 96 L, Carbon Dioxide 32 H, Anion Gap 17.9 H, BUN 30 H, Creatinine 2.50 H, Estimated Creat Clear 28, Estimated GFR 19 L*, Est GFR ( Amer) 23 L, Glucose 201 H, Calcium 12.9 H*, Total Bilirubin 1.1, AST 61 H, ALT 65, Alkaline Phosphatase 202 H, Troponin I 0.03, Total Protein 9.1 H D, Albumin 4.1, Globulin 5.0 H, Albumin/Globulin Ratio 0.8 L 04/06/20 06:58: Lactate 1.4 04/06/20 06:58: SARS-CoV-2 IgG Ab (Rapid) Negative, SARS-CoV-2 IgM Ab (Rapid) Negative 04/06/20 07:04: Urine Color Yellow, Urine Appearance Clear, Urine pH 6.0, Ur Specific [place] 1.010, Urine Protein Negative, Urine Glucose (UA) Negative, Urine Ketones Negative, Urine Blood 1+, Urine Nitrate Negative, Urine Bilirubin Negative, Urine Urobilinogen 0.2, Ur Leukocyte Esterase Negative, Urine RBC 5-10, Urine WBC Occasional, Ur Squamous Epith Cells Occasional, Urine Bacteria None 04/06/20 07:49: Specimen Source Left radial, O2 % 2l nc, ABG pH 7.36, ABG pCO2 46.7 H, ABG pO2 93.9, ABG HCO3 25.9, ABG Total CO2 27.3 H, ABG O2 Saturation 97, ABG Base Excess 0.5, Lenin Test Patient unable Result diagrams: 04/06/20 06:58 04/06/20 06:58 Orders (Tests/Meds): ED MEDICATIONS Discontinued Medications Generic Name Dose Route Start La
--- NOTE | 2020-04-06 09:45 | PC.NURSE ---
PT RESTING RESPONDS WITH VERBAL STIMULATION
--- NOTE | 2020-04-06 09:54 | PC.NURSE ---
REPORT CALLED TO SUNSHINE ESQUIVEL
--- NOTE | 2020-04-06 11:20 | HMH.PHAINT ---
HOME MEDICATIONS RECONCILED USING MAR FROM SNF.
--- NOTE | 2020-04-06 11:21 | HMH.PHAVTE ---
[facility] Pharmacy VTE Monitoring - Patient Demographics Admission date: 04/06/20 Report Date: 04/06/20 Time: 11:22 Allergies/Adverse Reactions: Patient Allergies influenza virus vaccine, specific [INFLUENZA VIRUS VACC,SPECIFIC] Adverse Reaction (Unknown, Verified 08/09/19 09:45) STATES GAVE HER THE FLU Height: 1.65 m Weight: 74.417 kg Patient Problems: Current Active Problems (Last Updated 02/15/19 @ 14:25 by Rosalina Snyder RN) Metabolic encephalopathy (Acute) Acute on chronic renal failure (Acute) High anion gap metabolic acidosis (Acute) Anemia (Acute) - VTE Risk Labs: VTE Related Lab Results Hgb 14.5 g/dL (12.2-16.2) 04/06/20 06:58 Hct 43.9 % (37.0-47.0) 04/06/20 06:58 Plt Count 241 K/mm3 (142-424) 04/06/20 06:58 BUN 30 mg/dl (7-17) H 04/06/20 06:58 Creatinine 2.50 mg/dl (0.52-1.04) H 04/06/20 06:58 Estimated Creat Clear 28 mL/min (50-200) 04/06/20 06:58 - Prophylaxis VTE Prophylaxis Ordered?: Yes Types of VTE Prophylaxis: Pharmacological Pharmacologic Type: Other (XARELTO)
[2020-04-06 11:40] LABS: Ammonia 9 umol/L (9-30)
[2020-04-06 11:53] LABS: Troponin I 0.02 ng/ml (0.00-0.034)
--- NOTE | 2020-04-06 13:55 | SW/DCPLANNER ---
CALLED [facility] TODAY AND SPOKE WITH MERY AND SHE STATED THEY WILL TAKE MS MELCHOR BACK WHEN SHE IS READY FOR A DISPOSITION... SHE IS ON A BEDHOLD AND IS CURRENTLY ICF LEVEL OF CARE... DISPOSITION UNCERTAIN, WILL LET FACILITY KNOW WHEN SHE IS READY FOR DISCHARGE...
[2020-04-06 14:05] LABS: Troponin I 0.02 ng/ml (0.00-0.034)
--- NOTE | 2020-04-06 15:52 | PC.NURSE ---
Pt was a new admit this shift. Pt is non-verbal and withdraws to pain. PERRLA, although sluggish. GCS is 7. Lung sounds reveal inspiratory wheezes and expiratory rhonchi. O2 is infusing via NC @ 2 LPM with sats. >95%. HR has been in the 50's since arrival to the unit. Small, dime-size stage 2 ulceration noted to LT side of gluteal cleft and dressed with a polymem. Large, dark purple bruise noted to RT heel and dressed with an Allevant pressure-relief dressing. Pt has been turned/repositioned and received oral care Q2H this shift. F/C is patent and draining dark, yellow urine at bedside to gravity. 1 small, soft, brown BM this shift. 20 G peripheral IV in the LT AC is patent and SL. 18 G peripheral IV in the RT forearm is patent and SL. Bed safety alarm is set and call light is within reach. Will continue to monitor.
--- NOTE | 2020-04-06 17:35 | HMH.HP ---
*Admission Date: 04/06/20 *Chief complaint: Weakness/mental status change *History of present illness: 79-year-old female resident of [facility] was sent to the [facility] emergency department today because of mental status changes and being less interactive and responsive with staff. Patient remains that way at time of interview so details are taken from the ER note. When patient was not interacting with staff she was sent to the ER where patient was found to have acute renal failure. Patient also had urinary retention discovered upon insertion of Lynne catheter. Patient had a hospitalization at this facility approximately 3 weeks ago when she had acute kidney injury and urinary tract infection growing Proteus mirabilis. [facility] History Medical History: Reports:: Anxiety, Atrial Fibrillation, Cardiomyopathy, Congestive Heart Failure, Coronary Artery Disease, Cerebrovascular Accident, Deep Vein Thrombosis, Depression, Diabetes Mellitus Type 2, Gastroesophageal Reflux Disease(GERD), Hyperlipidemia, Hypertension, Osteoporosis, Peripheral Artery Disease, Pulmonary Embolism, Urinary Tract Infection Denies:: Cancer, Diabetes Mellitus Type 1, MRSA, Seizures *Have you ever received a pneumonia vaccine?: Yes *Have you received a flu vaccine this season?: Yes Other Medical History: Reports: Arthritis, Osteoporosis Other Surgeries: Yes: Cardiac Catheterization, Coronary Stent, Hysterectomy-Total, Other Amputation: No Fractures: No - *Social History Smoking Status: Former smoker # Packs/Day (cigarettes): 1 Alcohol Intake: never Substance Use Type: denies use *Occupational Status:: other Housing: longterm Household Members: other *Travel in the last 8 weeks: None - Psychiatric History Pschychiatric History:: Reports:: Anxiety, Depression Family Hx:: Unable to obtain Review of Systems - Review of Systems Review of systems:: unable to obtain Meds Home Medications Medication Instructions Recorded Confirmed Type atorvastatin 20 mg tablet 20 mg PO HS 03/02/18 04/06/20 History gabapentin 600 mg tablet 600 mg PO BID 03/02/18 04/06/20 History lactulose 10 gram/15 mL oral 20 g PO DAILYP PRN 03/02/18 04/06/20 History solution trazodone 50 mg tablet 25 mg PO HS 03/02/18 04/06/20 History Acetaminophen [Acetaminophen Extra 500 mg PO Q4HP PRN 11/07/18 04/06/20 History Strength] bupropion HCl 150 mg 24 hr tablet, 300 mg PO DAILY 02/15/19 04/06/20 History extended release omega-3 fatty acids 1,000 mg 1,000 mg PO DAILY 02/15/19 04/06/20 History capsule amiodarone 200 mg tablet 200 mg PO DAILY tab 06/06/19 04/06/20 History Clopidogrel Bisulfate [Plavix 75mg 75 mg PO DAILY 03/14/20 04/06/20 History Tab] Docusate Sodium [Colace] 100 mg PO BID 03/14/20 04/06/20 History Mirabegron [Myrbetriq] 50 mg PO DAILY 03/14/20 04/06/20 History Mirtazapine [Remeron] 15 mg PO HS 03/14/20 04/06/20 History Rivaroxaban [Xarelto 15mg tablet] 15 mg PO DAILY 03/14/20 04/06/20 History Spironolactone [Aldactone 25mg 25 mg PO DAILY 03/14/20 04/06/20 History Tab] carvediloL [Carvedilol 3.125mg Tab] 3.125 mg PO BID 03/14/20 04/06/20 History Calcium Carbonate [Calcium] 500 mg PO BID 03/15/20 04/06/20 History Allergies Allergy/AdvReac Type Severity Reaction Status Date / Time influenza virus vaccine, AdvReac Unknown STATES Verified 08/09/19 09:45 specific GAVE HER [INFLUENZA VIRUS THE FLU VACC,SPECIFIC] Exam Vital signs and Labs for Last 24 Hours: Temp Pulse Resp BP Pulse Ox 97.9 F 38 L 12 115/73 99 04/06/20 16:00 04/06/20 16:00 04/06/20 16:00 04/06/20 16:00 04/06/20 16:00 Laboratory Results - last 24 hr 04/06/20 06:58: WBC 10.2, RBC 4.59, Hgb 14.5, Hct 43.9, MCV 95.8, MCH 31.6 H, MCHC 32.9, RDW 15.3, Plt Count 241, MPV 8.5, Neut % (Auto) 74.7, Lymph % (Auto) 16.9, [place] % (Auto) 4.5, Eos % (Auto) 3.4, Baso % (Auto) 0.6, Neut # (Auto) 7.6, Lymph # (Auto) 1.7, [place]
--- NOTE | 2020-04-06 19:14 | PC.NURSE ---
report given to araceli
[2020-04-07] VITALS (7 sets, daily range): BP systolic 85–158; BP diastolic 49–77; PULSE 50–111; RESP 12–16; TEMP 36.4–36.9; O2SAT 90–99; BMI 27.3
--- NOTE | 2020-04-07 08:09 | PC.NURSE ---
0900 SCHEDULED MEDICATIONS HELD D/T PTS MENTAL STATUS. PT IS LETHARGIC AND UNABLE TO TAKE PO MEDS AT THIS TIME. DR. ROWE NOTIFIED DURING MORNING ROUNDS. WILL CONTINUE TO MONITOR
--- NOTE | 2020-04-07 08:12 | HMH.ACPN2 ---
Internal Medicine - PN: Subj *Date: 04/07/20 *Time: 08:24 Interval history: Patient has become a little more alert and interactive with staff this morning. She will open her eyes when trying to communicate and can answer yes or no. She denies pain. Exam Vital signs and Labs for Last 24 Hours: Temp Pulse Resp BP Pulse Ox 97.6 F 50 L 16 132/73 93 L 04/07/20 05:57 04/07/20 05:57 04/07/20 05:57 04/07/20 05:57 04/07/20 07:54 Laboratory Results - last 24 hr 04/06/20 06:58: SARS-CoV-2 IgG Ab (Rapid) Negative, SARS-CoV-2 IgM Ab (Rapid) Negative 04/06/20 11:00: Troponin I 0.02 04/06/20 11:00: Ammonia 9 04/06/20 13:34: Troponin I 0.02 I & O for Last 24 hours: Intake & Output 04/04/20 04/05/20 04/06/20 04/07/20 11:59 11:59 11:59 11:59 Intake Total 832 / 832 Output Total 400 / 400 Balance 432 / 432 Weight 164 lb 1 oz 164 lb 3 oz - Constitutional no acute distress - *Routine Respiratory Exam Present: CTA bilaterally - *Routine Cardiovascular Exam Present: RRR Assessment and Plan (1) Metabolic encephalopathy Current visit: Yes Status: Acute Category: Medical Code(s): G93.41 - Metabolic encephalopathy (2) Acute on chronic renal failure Current visit: Yes Status: Acute Qualifiers: Acute renal failure type: unspecified Chronic kidney disease stage: stage 4 (severe) Qualified Code(s): N17.9 - Acute kidney failure, unspecified; N18.4 - Chronic kidney disease, stage 4 (severe) Category: Medical Code(s): N17.9 - Acute kidney failure, unspecified; N18.9 - Chronic kidney disease, unspecified (3) Altered mental status Current visit: No Status: Acute Qualifiers: Altered mental status type: somnolence Qualified Code(s): R40.0 - Somnolence Category: Medical Code(s): R41.82 - Altered mental status, unspecified (4) LV dysfunction Current visit: No Status: Chronic Category: Medical Code(s): I51.9 - Heart disease, unspecified (5) UTI (urinary tract infection) Current visit: No Status: Suspected Qualifiers: Urinary tract infection type: site unspecified Hematuria presence: without hematuria Qualified Code(s): N39.0 - Urinary tract infection, site not specified Category: Medical Code(s): N39.0 - Urinary tract infection, site not specified (6) A-fib Current visit: No Status: Chronic Qualifiers: Atrial fibrillation type: chronic Category: Medical Code(s): I48.91 - Unspecified atrial fibrillation (7) CAD (coronary artery disease) Current visit: No Status: Chronic Qualifiers: Coronary Disease-Associated Artery/Lesion type: unspecified vessel or lesion type [place] vs. transplanted heart: [place] heart Associated angina: with unstable angina Qualified Code(s): I25.110 - Atherosclerotic heart disease of [place] coronary artery with unstable angina pectoris Category: Medical Code(s): I25.10 - Atherosclerotic heart disease of [place] coronary artery without angina pectoris (8) CHF (congestive heart failure) Current visit: No Status: Chronic Qualifiers: Heart failure type: unspecified Heart failure chronicity: acute on chronic Qualified Code(s): I50.9 - Heart failure, unspecified Category: Medical Code(s): I50.9 - Heart failure, unspecified (9) Cardiomyopathy Current visit: No Status: Chronic Qualifiers: Cardiomyopathy type: ischemic Qualified Code(s): I25.5 - Ischemic cardiomyopathy Category: Medical Code(s): I42.9 - Cardiomyopathy, unspecified (10) History of CVA (cerebrovascular accident) Current visit: No Status: Chronic Category: Medical Code(s): Z86.73 - Personal history of transient ischemic attack (TIA), and cerebral infarction without residual deficits - Assessment and plan all Dx Assessment and Plan for all problems:: Continue IV fluids, continue IV antibiotics, hold sedating medications. Patient still requires inpatient care due to
[2020-04-07 08:41] LABS: Basophils # 0.1 K/mm3 (0-0.2); Basophils % 0.5 % (0.1-2.0); Eosinophils # 0.5 K/mm3 (0.0-0.4); Eosinophils % 5.1 % (0.1-12.0); Hematocrit 36.1 % (37.0-47.0); Hemoglobin 11.6 g/dL (12.2-16.2); Lymphocytes # 1.2 K/mm3 (0.7-4.5); Lymphocytes % 12.2 % (10-50); Mean Corpuscular HGB Conc 32.1 g/dL (31.8-35.4); Mean Corpuscular Hemoglobin 32.1 pg (27.0-31.2); Mean Platelet Volume 9.5 fl (7.4-10.4); Monocytes # 0.6 K/mm3 (0.1-1.0); Monocytes % 6.3 % (1.7-9.3); Neutrophils # 7.5 K/mm3 (1.8-7.8); Neutrophils % 75.9 % (37.0-80.0); Platelet Count 139 K/mm3 (142-424); Red Cell Distribution Width 15.1 % (11.5-17.5); White Blood Count 9.9 K/mm3 (4.8-10.8)
[2020-04-07 08:55] LABS: Chloride 109 mmol/L (98-107); Potassium 4.1 mmoL/L (3.5-5.1); Sodium 142 mmol/L (136-145)
[2020-04-07 08:58] LABS: Anion Gap 12.1 mEq/L (5-15); Blood Urea Nitrogen 25 mg/dl (7-17); Creatinine Clearance Estimated 31 mL/min (50-200); Estimated Glomerular Filt Rate 27 ml/min (>60); GFR (African American) 33 ML/MIN (>60); Glucose 95 mg/dl (74-100)
[2020-04-07 09:58] LABS: Calcium 9.5 mg/dl (8.4-10.2); Carbon Dioxide 25 mmol/L (22.0-30.0)
--- NOTE | 2020-04-07 18:54 | PC.NURSE ---
ALERT AND ORIENTED X1, CONFUSED. PT WAS LETHARGIC AND ASLEEP FOR MOST OF SHIFT, DR. ROWE IS AWARE. PT WOKE UP APPROXIMATELY 1500 AND HAS REMAINED AWAKE. PT HAS BEEN CONVERSING WITH STAFF, TALKATIVE. PT FREQUENTLY TALKS TO HERSELF AND HAS A FULL CONVERSATION WHEN NO ONE IS IN THE ROOM. ORAL CARE AND TURNED Q2. LUNGS REMAIN CLEAR, O2 SAT IS HIGH 90'S ON 2LNC. ABDOMEN IS SOFT, LARGE, NON-TENDER WITH HYPERACTIVE BS IN ALL QUADS. ONE LARGE BM THIS EVENING. THOMAS CATHETER IS SECURE,PATENT, AND DRAINING CLEAR YELLOW URINE. VSS. NO DISTRESS NOTED. SAFETY MEASURES IN PLACE, WILL CONTINUE TO MONITOR
[2020-04-08 04:00] VITALS: BP 144/70; PULSE 57; RESP 16; TEMP 36.7; O2SAT 97
[2020-04-08 05:04] VITALS: BMI 27.3
--- NOTE | 2020-04-08 05:16 | PC.NURSE ---
Pt is more alert this shift. She is alert to self and place. She knows that she's in the hospital in [facility] but does not know the time. She also has been conversing with staff some. Has slept at intervals this shift. Pt remains on 2l O2 NC with sats in upper 90s. Pt is on O2 at [facility] where she resides. BP has been stable. HR has been bradycardic. BS active. Medium, light brown paste BM this shift. Teds placed for VTE. Pt repositioned. No other concerns at this time. Will continue to monitor.
[2020-04-08 07:06] LABS: Chloride 109 mmol/L (98-107)
[2020-04-08 07:07] LABS: Potassium 3.8 mmoL/L (3.5-5.1); Sodium 143 mmol/L (136-145)
[2020-04-08 07:10] LABS: Anion Gap 8.8 mEq/L (5-15); Blood Urea Nitrogen 21 mg/dl (7-17); Calcium 9.2 mg/dl (8.4-10.2); Carbon Dioxide 29 mmol/L (22.0-30.0); Creatinine Clearance Estimated 31 mL/min (50-200); Estimated Glomerular Filt Rate 27 ml/min (>60); GFR (African American) 33 ML/MIN (>60); Glucose 86 mg/dl (74-100)
[2020-04-08 07:59] VITALS: BP 150/65; PULSE 57; RESP 16; TEMP 36.7; O2SAT 99
[2020-04-08 08:00] VITALS: O2SAT 97
--- NOTE | 2020-04-08 08:46 | HMH.ACPN2 ---
Internal Medicine - PN: Subj *Date: 04/08/20 *Time: 08:46 Interval history: Nursing staff reports around 3 PM yesterday afternoon patient became awake and alert to person and place. She denies pain. Since that time she has been eating and conversing well. This morning she continues to deny problems Exam Vital signs and Labs for Last 24 Hours: Temp Pulse Resp BP Pulse Ox 98.1 F 57 L 16 150/65 H 99 04/08/20 07:59 04/08/20 07:59 04/08/20 07:59 04/08/20 07:59 04/08/20 07:59 Laboratory Results - last 24 hr 04/07/20 07:30: Sodium 142, Potassium 4.1, Chloride 109 H, Carbon Dioxide 25 D, Anion Gap 12.1, BUN 25 H, Creatinine 1.80 H D, Estimated Creat Clear 31, Estimated GFR 27 L, Est GFR ( Amer) 33 L D, Glucose 95, Calcium 9.5 D 04/08/20 06:46: Sodium 143, Potassium 3.8, Chloride 109 H, Carbon Dioxide 29, Anion Gap 8.8, BUN 21 H, Creatinine 1.80 H, Estimated Creat Clear 31, Estimated GFR 27 L, Est GFR ( Amer) 33 L, Glucose 86, Calcium 9.2 I & O for Last 24 hours: Intake & Output 04/05/20 04/06/20 04/07/20 04/08/20 11:59 11:59 11:59 11:59 Intake Total 862 / 862 900 / 900 Output Total 400 / 400 290 / 290 Balance 462 / 462 610 / 610 Weight 164 lb 1 oz 164 lb 3 oz 164 lb 4 oz Microbiology Reports for the Last 24 Hours: Microbiology 04/06/20 06:58 Blood Blood Culture - Preliminary NO GROWTH AFTER 48 HOURS 04/06/20 06:58 Blood Blood Culture - Preliminary NO GROWTH AFTER 48 HOURS - Constitutional no acute distress - *Routine Respiratory Exam Present: CTA bilaterally - *Routine Cardiovascular Exam Present: RRR Assessment and Plan (1) Metabolic encephalopathy Current visit: Yes Status: Acute Category: Medical Code(s): G93.41 - Metabolic encephalopathy (2) Acute on chronic renal failure Current visit: Yes Status: Acute Qualifiers: Acute renal failure type: unspecified Chronic kidney disease stage: stage 4 (severe) Qualified Code(s): N17.9 - Acute kidney failure, unspecified; N18.4 - Chronic kidney disease, stage 4 (severe) Category: Medical Code(s): N17.9 - Acute kidney failure, unspecified; N18.9 - Chronic kidney disease, unspecified (3) Altered mental status Current visit: No Status: Acute Qualifiers: Altered mental status type: somnolence Qualified Code(s): R40.0 - Somnolence Category: Medical Code(s): R41.82 - Altered mental status, unspecified (4) LV dysfunction Current visit: No Status: Chronic Category: Medical Code(s): I51.9 - Heart disease, unspecified (5) UTI (urinary tract infection) Current visit: No Status: Suspected Qualifiers: Urinary tract infection type: site unspecified Hematuria presence: without hematuria Qualified Code(s): N39.0 - Urinary tract infection, site not specified Category: Medical Code(s): N39.0 - Urinary tract infection, site not specified (6) A-fib Current visit: No Status: Chronic Qualifiers: Atrial fibrillation type: chronic Category: Medical Code(s): I48.91 - Unspecified atrial fibrillation (7) CAD (coronary artery disease) Current visit: No Status: Chronic Qualifiers: Coronary Disease-Associated Artery/Lesion type: unspecified vessel or lesion type [place] vs. transplanted heart: [place] heart Associated angina: with unstable angina Qualified Code(s): I25.110 - Atherosclerotic heart disease of [place] coronary artery with unstable angina pectoris Category: Medical Code(s): I25.10 - Atherosclerotic heart disease of [place] coronary artery without angina pectoris (8) CHF (congestive heart failure) Current visit: No Status: Chronic Qualifiers: Heart failure type: unspecified Heart failure chronicity: acute on chronic Qualified Code(s): I50.9 - Heart failure, unspecified Category: Medical Code(s): I50.9 - Heart failure, unspecified (9) Cardiom
--- NOTE | 2020-04-08 08:47 | HMH.DCSUM ---
General - General Admission date:: 04/06/20 Discharge date: 04/08/20 HPI HPI: 79-year-old female resident of [facility] was sent to the [facility] emergency department today because of mental status changes and being less interactive and responsive with staff. Patient remains that way at time of interview so details are taken from the ER note. When patient was not interacting with staff she was sent to the ER where patient was found to have acute renal failure. Patient also had urinary retention discovered upon insertion of Lynne catheter. Patient had a hospitalization at this facility approximately 3 weeks ago when she had acute kidney injury and urinary tract infection growing Proteus mirabilis. Hospital Course Hospital Course: Patient was admitted and ordered only essential medications for her history of atrial fibrillation and cardiomyopathy. Any medications with a NURSES DIRECTOR depressant side effects were held. Patient remained obtunded but stable for the first 48 hours of admission. At approximately 3 PM on the afternoon of April 07 patient awakened and became alert and was oriented to both person and place. Patient was able to eat and converse with staff without problems. She denied pain. Blood cultures were negative for bacteremia. Acute kidney injury that was present on admission had improved with fluids with creatinine decreasing to 1.8. Patient's baseline is 1.2. Patient had acute urinary retention on presentation and this is likely a side effect of her Myrbetriq. This medicine should be discontinued. Patient had hypercalcemia on admission that responded to IV fluids. Once patient's coronavirus testing was negative she was discharged back to [facility]. Patient should have a BMP and urinalysis on April 10 Medications have been reduced significantly to avoid further polypharmacy leading to mental status changes and altered level of consciousness. Condition: Stable Mental status: Below average Prognosis: Fair Objective Vital signs: Temp Pulse Resp BP Pulse Ox 98.1 F 57 L 16 150/65 H 99 04/08/20 07:59 04/08/20 07:59 04/08/20 07:59 04/08/20 07:59 04/08/20 07:59 Results Labs on day of discharge: Labs from last 24 hours 04/08/20 04/07/20 06:46 07:30 Sodium 143 142 Potassium 3.8 4.1 Chloride 109 H 109 H Carbon Dioxide 29 25 D Anion Gap 8.8 12.1 BUN 21 H 25 H Creatinine 1.80 H 1.80 H D Estimated Creat Clear 31 31 Estimated GFR 27 L 27 L Est GFR ( Amer) 33 L 33 L D Glucose 86 95 Calcium 9.2 9.5 D Preliminary micro results at discharge 04/06/20 06:58 Blood Culture - Preliminary Blood NO GROWTH AFTER 48 HOURS 04/06/20 06:58 Blood Culture - Preliminary Blood NO GROWTH AFTER 48 HOURS DS: Diagnosis - Discharge Diagnosis (1) Metabolic encephalopathy Status: Resolved (2) Acute on chronic renal failure Status: Resolved (3) Altered mental status Status: Resolved (4) LV dysfunction Status: Chronic (5) UTI (urinary tract infection) Status: Ruled-out (6) A-fib Status: Chronic (7) CAD (coronary artery disease) Status: Chronic (8) CHF (congestive heart failure) Status: Chronic (9) Cardiomyopathy Status: Chronic (10) History of CVA (cerebrovascular accident) Status: Chronic (11) Polypharmacy Status: Chronic (12) Acute urinary retention Status: Resolved (13) Hypercalcemia Status: Resolved Discharge Plan - Patient Discharge Instructions ACTIVITY: Continue current activity DIET: continue same diet - Follow up Plan Disposition: Xfer [facility] Home Medications: Home Medications Medication Instructions Recorded Confirmed Type atorvastatin 20 mg tablet 20 mg PO HS 03/02/18 04/06/20 History gabapentin 600 mg tablet 600 mg PO BID 03/02/18 04/06/20 History lactulose 10 gram/15 mL
== END 2020-04-08 13:30 | DRG 71 ==
LOC: ER 09:39 → 2ND 11:37
PROVIDERS: Admitting Provider Family Medicine; Emergency Provider Emergency Medicine; PCP Family Medicine; Visit Provider Family Medicine
DX: G93.41 Metabolic encephalopathy (principal); I13.0 Hypertensive heart and chronic kidney disease with heart failure and stage 1 through stage 4 chronic kidney disease, or unspecified chronic kidney disease; N18.4 Chronic kidney disease, stage 4 (severe); N17.9 Acute kidney failure, unspecified; N39.0 Urinary tract infection, site not specified; I50.9 Heart failure, unspecified; I25.5 Ischemic cardiomyopathy; E11.22 Type 2 diabetes mellitus with diabetic chronic kidney disease
CPT/HCPCS: 36415; 70450; 71045; 74176; 80048; 80053; 81001; 82140; 82803; 83605; 84484; 85025; 86328; 87040; 93005; 96365; 96375; 99285; J1335; U0003